=== PATIENT | female | born 1965 | race Caucasian/White ===

== ENCOUNTER 2024-04-14 16:38 | Outpatient (RCR) | payer OTHER, SELFPAY | END 2024-05-13 14:34 | disposition home or self-care (01) | LOC: PT 16:38 | DX: M54.12 Radiculopathy, cervical region (principal) | CPT/HCPCS: 97012; 97110; 97140; 97162 ==

== ENCOUNTER 2024-05-14 08:24 | Outpatient (RCR) | payer OTHER, SELFPAY | END 2024-09-13 07:01 | disposition home or self-care (01) | LOC: PT 08:24 | DX: M54.12 Radiculopathy, cervical region (principal) | CPT/HCPCS: 20561; 97012; 97110; 97140 ==

== ENCOUNTER 2024-09-27 09:43 | Outpatient (OUT) | payer OTHER, SELFPAY ==
--- OUTSIDE RECORDS SUMMARY | 2024-09-27 09:47 | XMS_ITS | CCD ---
Author Organization [facility] ion [facility] Care Team Providers Care Lead Caregiver Name Role Phone Unavailable Primary Care Provider Unavailtrey RIDLEY, DR DIDIER Nazario Admitting Unavailable RIDLEY, DR DIDIER Nazario Attending Unavailable RIDLEY, DR DIDIER aNzario Consulting Unavailable RIDLEY, DR DIDIER Nazario Primary Care Unavailable RIDLEY, DR DIDIER Nazario Admitting Unavailable RIDLEY, DR DIDIER Nazario Attending Unavailable RIDLEY, DR DIDIER Nazario Consulting Unavailable RIDLEY, DR DIDIER Nazario Primary Care Unavailable MISC, DR RYAN Attending Unavailable MISC, DR RYAN Admitting Unavailable WEST, DR KARL Peck Consulting Unavailable RIDLEY, DR DIDIER Nazario Primary Care Unavailable MISC, DR RYAN Consulting Unavailable MISC, DR RYAN Attending Unavailable MISC, DR RYAN Admitting Unavailable KHAI, DR DIDIER Nazario Primary Care Unavailable AR VENTURA Admitting Unavailable DEQUAN LECHUGA Consulting Unavailable KHAI, DR DIDIER Nazario Primary Care Unavailable AR VENTURA Attending Unavailable AR VENTURA Consulting Unavailable PELEamon, REJI Consulting Unavailable KHAI, DR DIDIER Nazario Admitting Unavailable KHAI, DR DIDIER Nazario Attending Unavailable RIDLEY, DR DIDIER Nazario Consulting Unavailable RIDLEY, DR DIDIER Nazario Primary Care Unavailable Shani Nieto Unavailable Nasrin Dang Unavailable Tara Ferrari Primary Care Physician GUSTAVO CADET Attending Unavailable Tara Tanner Primary Care Provider Kelsey Barnes APRN Attending Provider Tara Ferrari Attending Unavailable MARY MERCADO Attending Unavailable Tara Ferrari Attending Unavailable Tara Ferrari Admitting Unavailable Tara Ferrari Attending Unavailable Tara Ferrari Attending Unavailable Kelsey Barnes Attending Unavailable Kelsey Barnes Admitting Unavailable Tara Ferrari Primary Care Unavailable Ronda Cloud Consulting Unavailable Khloe Zhang Attending Unavailable Tara Ferrari Primary Care Unavailable Cyrus Ellison Admitting Unavailable Soco Jean Consulting Unavailable PalChristopher Consulting Unavailable Vita Azvj Consulting Unavailable Vega PRESS SET UP-C, Tara Ventura Primary Care Provider Rosalva Lockhart DO Emergency Provider [phone] Cyrus Ellison MD Admit Provider Terra GILBERT, Cyrus Attending Provider [phone] Allergies Allergy Classification Reported Allergen(s) Allergy Type Date of Onset Reaction(s) Facility (1 source) No Known Medication Allergies; Translations: [No Known Medication Allergies] Propensity to adverse reactions (disorder) [facility] Repository Medications Current Medications Medication Drug Class(es) Dates Sig (Normalized) Sig (Original) amoxicillin 875 mg / clavulanate 125 mg oral tablet (1 source) Penicillin-class Antibacterial Start: 11-30-2022 take 1 tablet by mouth every twelve hours Amoxicillin-Pot Clavulanate 875-125 MG 1 tablet Orally every 12 hrs for 10 day(s) Nov, Active bisoprolol fumarate 5 mg / hydroCHLOROthiazide 6.25 mg oral tablet (12 sources) Thiazide Diuretic, beta-Adrenergic Kusum Start: 03-20-2024 take 1 tablet by mouth once daily Bisoprolol-Abiquiu chlorothiazide 5-6.25 mg tablet Active 1 TAB PO Daily March 20, 2024 1:00am Start: 03-20-2024 take 1 tablet by cesar th once daily Bisoprolol-Hydrochlorothiazide 5-6.25 mg tablet Active TAB PO Daily March 20, 2024 1:00am Start: 03-20-2024 take 1 tablet by cesar th once daily Bisoprolol-Hydrochlorothiazide 5-6.25 mg tablet Active TAB PO Daily March 20, 2024 12:00am Start: 12-13-2022 take 1 tablet by cesar th once daily bisoprolol-hydrochlorothiazide 5 mg-6.25 mg Tab 1 tab(s), Oral, Daily, Refill(s) 0, High blood pressure Start Date: 12/13/22 Status: Ordered Start: 05-24-2021 take 1 tablet by cesar th once daily in the morning bisoprolol-hydroCHLOROthiazide (ZIAC) 5- 6.25 mg per tablet TAKE 1 TABLET BY MOUTH EVERY DAY IN THE MORNING 0 05/24/2021 Active Comment on above: TAKE 1 TABLET BY CESAR TH EVERY DAY IN THE MORNING fluticasone propionate 0.05 mg/actuat metered dose nasal spray (1 source) Corticosteroid Start: 09-22-19 take 1 spray(s) nasal route once daily Fluticasone Propionate 50 mcg/actuation spray,suspension Active 1 SPRAY INTRANASAL Daily 16 September 21, 2024 12:00am administer into each nostril meloxicam 7.5 mg oral tablet (3 sources) Nonsteroidal Anti-inflammatory Drug Start: 09-10-19 End: 12-09-19 take 1-2 tablets by mouth once daily meloxicam (MOBIC) 7.5 mg tablet Indications: Spinal stenosis in cervical region , Radiculopathy, cervical region , Cervicalgia Take 1-2 tablets by mouth once daily. 60 tablet 2 09/09/2021 12/08/2021 Active Start: 07-22-2021 End: 08-21-2021 take 1-2 tablets by mouth once daily meloxicam (MOBIC) 7.5 mg tablet Indications: Spinal stenosis in cervical region , Radiculopathy, cervical region , Cervicalgia Take 1-2 tablets by mouth once daily. 60 tablet 0 07/22/2021 08/21/2021 Active Comment on above: Take 1-2 tablets by mouth once daily. Completed/Discontinued Medications Medication Drug Class(es) Dates Sig (Normalized) Sig (Original) [id number] 200 actuat albuterol 0.09 mg/actuat metered dose inhaler (4 sources) beta2-Adrenergic Agonist Start: take 2 puff(s) by mouth every four hours albuterol HFA (PROVENTIL HFA, VENTOLIN HFA) 90 mcg/actuation inhaler INHALE 2 PUFFS BY MOUTH EVERY 4 HOURS 0 05/27/2021 Active Comment on above: INHALE 2 PUFFS BY MO UT EVERY 4 HOURS cyclobenzaprine hydrochloride 10 mg oral tablet (2 sources) Muscle Relaxant Start: 0 take 1 tablet by mouth every eight hours Cyclobenzaprine HCl 10 MG 1 tablet as needed Orally Three times a day for 7 days Dec, Not-Taking dextromethorphan hydrobromide 15 mg / guaiFENesin 400 mg / pseudoephedrine hydrochloride 60 mg oral tablet (2 sources) alpha-Adrenergic Agonist, Uncompetitive Z-nvrjrz-G-asparta te Receptor Antagonist, Sigma-1 Agonist Start: 0 Capmist DM 60-15-400 MG 1/2 to 1 tablet Orally every 6-8 hours as needed for 8 days Jul, Not-Taking gabapentin 100 mg oral capsule (4 sources) Anti-epileptic Agent Start: 2 take 1 capsule by mouth three times daily as needed for pain gabapentin (NEURONTIN) 100 mg capsule TAKE 1 CAPSULE BY MOUTH 3 TIMES A DAY NEEDED FOR PAIN 0 07/15/2021 Active Comment on above: TAKE 1 CAPSULE BY [facility] 3 TIMES A DAY NEEDED FOR PAIN Ketorolac (2 sources) Nonsteroidal Anti-inflammatory Drug, Cyclooxygenase Inhibitor Start: 0 Toradol per 15 mg Dec, 15 mg methylPREDNISolone 4 mg oral tablet (4 sources) Corticosteroid Start: 0 Medrol 4 MG as directed Orally for 6 days Dec, Not-Taking predniSONE 20 mg oral tablet (4 sources) Start: 5 End: 5 take 1 tablet by mouth once daily Prednisone 20 mg tablet Discontinued 20 MG PO Daily 3 3 September 21, 2024 12:00am September 21, 2024 4:21pm Start: 10-08-2022 [facility] prednisone 20 MG 1 tablet Orally BID for 5 Nov, Active Triamcinolone (2 sources) Corticosteroid Start: 01-02-2020 KENALOG - 10 m g Dec, 10 mg Problems Active Problems Problem Classification Problem Date Documented Date Episodic/Chronic Abdominal pain (2 sources) Pain in female pelvis; Translations: [Pelvic pain in female] Episodic Alcohol-related disorders (1 source) Alcohol abuse, uncomplicated; Translations: [Alcohol abuse, uncomplicated] Onset: 09-21-2024 Chronic Cataract (2 sources) Cataract; Translations: [Unspecified cataract] Onset: 04-11-2023 Chronic Conditions associated with dizziness or vertigo (3 sources) Dizziness 01-04-2023 Episodic Essential hypertension (4 sources) Hypertensive disorder; Translations: [Essential (primary) hypertension] Onset: 09-21-2024 12-13-2022 Chronic Fluid and electrolyte disorders (8 sources) Hypo-osmolality and hyponatremia; Translations: [Dehydration] Onset: 02-15-2021 Episodic Immunizations and screening for infectious disease (3 sources) Anti-nuclear factor positive 01-04-2023 Episodic Mood disorders (3 sources) Depressive disorder 12-13-2022 Chronic Other connective tissue disease (3 sources) Cramp in lower limb 01-04-2023 Episodic Other connective tissue disease (3 sources) Pain in left arm; Translations: [Pain in left arm] 03-20-2024 Episodic Other connective tissue disease (1 source) Pain in left arm; Translations: [Pain in limb] 03-20-2024 Episodic Other nervous system disorders (4 sources) Hereditary and idiopathic neuropathy, unspecified; Translations: [HEREDITARY IDIOPATH NEUROPATHY UNS] Onset: 01-22-2021 Chronic Other nervous system disorders (3 sources) Neuropathy 12-13-2022 Chronic Comment on above: 01/2021 Other nervous system disorders (3 sources) Piriformis syndrome 12-13-2022 Chronic Other upper respiratory disease (3 sources) Allergic rhinitis 12-13-2022 Chronic Other upper respiratory disease (3 sources) Seasonal allergy 12-13-2022 Chronic Other upper respiratory infections (9 sources) Acute pharyngitis, unspecified; Translations: [Acute sinusitis, unspecified] Onset: 02-13-2021 Episodic Otitis media and related conditions (2 sources) Acute transudative otitis media; Translations: [Other acute nonsuppurative otitis media, bilateral] 09-21-2024 Episodic Spondylosis; intervertebral disc disorders; other back problems (3 sources) Cervical spondylosis 12-13-2022 Chronic Comment on above: with radiculopathy Unclassified (3 sources) CONTACT W/AND (SUSP) EXPOS COVID-19; Translations: [CONTACT W/AND (SUSP) EXPOS COVID-19] Onset: 02-15-2021 Unclassified (3 sources) Body mass index 20-24 - normal 12-13-2022 Viral infection (4 sources) COVID-19; Translations: [Disease caused by 2019-nCoV] Onset: 05-26-2021 12-13-2022 Comment on above: 2019 and 2021 Past or Other Problems Problem Classification Problem Date Documented Da te Episodic/Chronic Spondylosis; intervertebral disc disorders; other back problems (16 sources) Spinal stenosis in cervical region; Translations: [Spinal stenosis, cervical region] Onset: 08-04-2021 Episodic Unclassified (1 source) CONTACT W/AND (SUSP) EXPOS COVID-19; Translations: [CONTACT W/AND (SUSP) EXPOS COVID-19] Onset: 05-24-2021 Unclassified (1 source) Contact with and (suspected) exposure to covid-19 Z20.822 Results Test Name Value Interpretation Reference Range Facility Ambulatory Visit Summaryon 0 09-25-2024 Ambulatory Visit Summary Ambulatory Visit Summary BILLY ARGUETA :1965 Visit Date:09/25/2024 Ambulatory Visit Instructions Your Diagnosis Hospital discharge follow-up HTN (hypertension) Hyponatremia Fluid level behind tympanic membrane of both ears Non-smoker BMI 21.0-21.9, adult Your Care Team Attending Physician - Tara Abreu Primary Care Physician - Tara Abreu This Is Your Medications List amlodipine (amLODIPine 2.5 mg Tab) bisoprolol (bisoprolol 5 mg Tab) fluticasone nasal (fluticasone Nasal 0.05 mg/inh [place]) Procedures Performed CEIOL - cataract extraction and implantation of intraocular lens (05/10/2023), IOL - intraocular lens implant (04/12/2023), Back fusion, section, Colonoscopy, Ovarian cystectomy, Surgery. Discharge Vitals Heart Rate (Peripheral) 68 Respiratory Rate 18 Blood Pressure 152/78 Height 172.0 cm Height 68 in Weight 62.55 kg Weight 137.899 lb BMI 21.14 What to do next Scheduled Follow-Up Appointments Sunday. 2024 11:00 AM EDT With: Tara Abreu Where: [place] [id number] Medications What How Much When Instructions Unchanged amlodipine (amLODIPine 2.5 mg Tab) 1 Tablets By Mouth Every day Unchanged bisoprolol (bisoprolol 5 mg Tab) 1 Tablets By Mouth Every day Bisoprolol- HCTZ D/ C Unchanged fluticasone nasal (fluticasone Nasal 0.05 mg/ inh [place]) 1 Sprays Nasal Inhalation Every day Allergies No Known Medication Allergies Problems Ongoing - Any problem that you are currently receiving treatment for. Allergic rhinitis ROBB positive BMI 22.0-22.9, adult BMI 23.0-23.9, adult Cervical spondylosis Congestion of nasal sinus COVID Depression Dizziness Fluid level behind tympanic membrane of both ears Foraminal stenosis of cervical region Hospital discharge follow-up HTN (hypertension) Hyponatremia Leg cramps Neuropathy Piriformis syndrome Right otitis media Seasonal allergies Patient Survey You may receive a survey via text or e-mail asking about your office visit. Please share your experience with us by completing your survey. We appreciate your feedback and thank you for choosing us for your care. Normal [facility] Family Medicine Office/Clini c Noteon 09-25-2024 Family Medicine Office/Clinic Note Family Medicine Office/Clinic Note HPI Staff Billy is a 59 year old female presenting for TCM TCM: Hospital: [facility] Admission date: 09/21/24 Discharge date: 09/24/24 Symptoms the patient presented with: light headed, dizziness Testing: CT of Brain ,chest x-ray Medications: D/c Bisoprolol-HCTZ and started Bisoprolol fumarate 5mg and amlodipine 5mg Discharge Dx: HTN. hyponatremia Pt to follow out pt with Nephrology Current concerns: Pt states last night at 2am started having headache and chest just alfonso felt tight almost like anxiety attack b/p 179/103 she did call the hospital and they told her to go ahead and take the amlodipine pt took that are rechecked her b/p at 3 am it is 163/93 and then took the Bisoprolol at 4:30am never re checked b/p after that. Pt also states she isn't sleeping well she has had maybe 6 hours of sleep since being admitted into the hospital. Continues to feel dizzy/light headed pt does feel sinus pressure. Pt was prescribed a steroid at the urgent care and her b/p was elevated then, pt states she didn't take the steroid and got home and had her take her to the hospital. History of Present Illness pt presents today for TCM follow up. Review of Systems PHQ Score Initial Depression Screen Score: 0 SCORE Physical Exam Vitals & Measurements HR: 68(Peripheral) RR: 18 BP: 152/78 SpO2: 98% HT: 172.0 cm HT: 68 in WT: 62.55 kg WT: 137.899 lb BMI: 21.14 General: alert, no acute distress ENMT: oral mucosa moist, no pharyngeal erythema or exudate, MITCH TM full of clear fluid Cardiovascular: regular rate and rhythm, normal peripheral perfusion Respiratory: Lungs CTA, respirations non labored Extremities: no deformity, no trauma Neurological: oriented x 4, LOC appropriate for age, CN II-XII intact, motor strength equal & normal bilaterally, speech normal Assessment/Plan 1. Hospital discharge follow-up (Z09: Encounter for follow-up examination after completed treatment for conditions other than malignant neoplasm) pt was admitted to [facility] for HTN and hyponatremia. the hospital d/c'd HCTZ. and she was started on Norvasc and bisoprolol. early this morning BP spiked back up. so she took meds early. pt was instructed by me to take the bisoprolol 5mg BID. she will check her BP before the 2nd dose if it is less than 140/90 she will not take it. She was given Kenalog in office today and I fear this will make her BP run a little higher. But she needs some relief from the fluid behind her ear drums. discharge instructions were reviewed and pt verbalized understanding. she will keep a BP log and return in 1 week. discussed anxiety but she feels if she could just start feeling better the anxiety will be fine. we will discuss that again next week. RTC 10/01 Ordered: TCM [facility] 7 day disch [id number] 2. HTN (hypertension) (I10: Essential (primary) hypertension) Pt was discharged yesterday and early this morning around 3 she had a bad headache checked her BP it was very high. she called the hospital and they told her to take her BP meds early. Pt will take 5mg bisoprolol BID until I see her next week. she will keep a BP log. Ordered: TCM [facility] 7 day disch [id number] 3. Hyponatremia (E87.1: Hypo-osmolality and hyponatremia) when admitted to hospital was found to be hyponatremic. pt will go to [facility] to have BMP drawn. she has an order from [facility]. Has appointment with nephrology in October Ordered: [facility] 7 day disch [id number] 4. Fluid level behind tympanic membrane of both ears (H65.93: Unspecified nonsuppurative otitis media, bilateral) MITCH TM full of fluid. pt was given Medrol dose pack but didn't take it because she ended up at hospital with high BP Ordered: [facility] 7 day disch [id number] 5. Right otitis media (H66.91: Otitis media, unspecified, right ear) right OM noted on exam. will send in Augmentin 6. Non-smoker (Z78.9: Other specified health status) continue not smoking Ordered: [facility] 7 day disch [id number] 7. BMI 21.0-21.9, adult (Z68.21: Body mass index [BMI] 21.0-21.9, adult) BMI education Ordered: [facility] 7 day disch [id number] Orders: amoxicillin-clavulan ate, 1 tab(s), Oral, q12hr for 7 day(s), 14 tab(s), Refill(s) 0, [facility]/pharmacy #[id number], 172, cm, 09/25/24 11:28:00 EDT, Height/Length Dosing, 62.5, kg, 09/25/24 11:28:00 EDT, Weight Dosing bisoprolol-hydrochlo rothiazide, See Instructions, 90 tab(s), Refill(s) 0, TAKE 1 TABLET BY MOUTH EVERY DAY, [facility] STORE [id number], 172, cm, 06/06/24 11:51:00 EST, Height/Length Dosing, 65.1, kg, 06/06/24 11:51:00 EST, Weight Dosing methylPREDNISolone, = 1 packet(s), Oral, Once, as directed on package labeling, # 21 tab(s), Refills(s) 0, Pharmacy: [facility]/pharmacy #[id number], 172, cm, 06/06/24 11:51:00 EST, Height/Length Dosing, 65.1, kg, 06/06/24 11:51:00 EST, Weight Dosing Follow-up No qualifying data available Problem List/Past Medical History Ongoing Allergic rhinitis ROBB positive BMI 22.0-22 (more content not included)... Normal [facility] Comment on above: Result Comment: Elec tronically Signed By: Tara Abreu\.tressa\Date and Time Signed: 09/25/24 12:45 EDT Basic Metabolic Panelon 09-11 Anion gap [Moles/Vol] 9.8 mmol/L Normal 6.0-15.0 [facility] Comment on above: Performed By: #### U RDS #### [facility] [address] Calcium [Mass/Vol] 8.8 mg/dL Normal 8.6-10.3 [facility] Comment on above: Performed By: #### U RDS #### [address] Chloride [Moles/Vol] 99 mmol/L Normal 98-107 [facility] Comment on above: Performed By: #### U RDS #### [address] CO2 [Moles/Vol] 25.2 mmol/L Normal 21.0-31.0 [facility] Comment on above: Performed By: #### U RDS #### [address] Creatinine [Mass/Vol] 0.65 mg/dL Normal 0.60-1.20 [facility] Comment on above: Performed By: #### U RDS #### [place] [address] [place] Creatinine Clr Calc Pharmacy 94.01 Normal [facility] Comment on above: Result Comment: PERF ORMED BY: [place] [address] PATHOLOGIST TAKER OFF HEMP FIBER EMIR DELGADO M.D. Performed By: #### U RDS #### [place] [address] [place] GFR/1.73 sq M.predicted MDRD (S/P/Bld) [Vol rate/Area] mL/min/{1.73_m2} Normal [facility] Comment on above: Performed By: #### U RDS #### [address] Glucose [Mass/Vol] 104 mg/dL High 70-100 [facility] Comment on above: Result Comment: [facility] Glucose Reference Range is dependent on time and content of last meal. Glucose of more than 200 mg/dL in a nonstressed, ambulatory subject supports the diagnosis of Diabetes Mellitus. ADA recommended reference range Performed By: #### U RDS #### [address] Potassium [Moles/Vol] 5.0 mmol/L Normal 3.5-5.1 [facility] Comment on above: Performed By: #### U RDS #### [address] Sodium [Moles/Vol] 129 mmol/L Low 136-145 [facility] Comment on above: Performed By: #### U RDS #### [address] Urea nitrogen [Mass/Vol] 11 mg/dL Normal 7-25 [facility] Comment on above: Performed By: #### U RDS #### [address] Complete Blood Count Auto Di ffon 09-24-2024 Basophils (Bld) [#/Vol] 0.0 10*3/uL Normal 0.0-0.2 [facility] Comment on above: Result Comment: PERF ORMED BY: [place] [address] PATHOLOGIST TAKER OFF HEMP FIBER EMIR DELGADO M.D. Performed By: #### R JUAN MG #### [place] [address] [place] Basophils/100 WBC (Bld) 1.2 % Normal . T [facility] Comment on above: Performed By: #### R JUAN MG #### [place] [address] [place] Eosinophils (Bld) [#/Vol] 0.2 10*3/uL Normal 0.0-0.45 [facility] Comment on above: Performed By: #### R ENNORMA, MG #### [address] Eosinophils/100 WBC (Bld) 4.4 % Normal . [facility] Comment on above: Performed By: #### R ENAL, MG #### [address] Erythrocyte distribution width (RBC) [Ratio] 12.8 % Normal 11.9-15.3 [facility] Comment on above: Performed By: #### R ENNORMA, MG #### [address] Hematocrit (Bld) [Volume fraction] 34.4 % Normal 34.0-46.4 [facility] Comment on above: Performed By: #### R ENAL, MG #### [address] Hemoglobin (Bld) [Mass/Vol] 12.1 g/dL Normal 11.8-15.4 [facility] Comment on above: Performed By: #### R ENNORMA, MG #### [address] Lymphocytes (Bld) [#/Vol] 1.4 10*3/uL Normal 1.00-4.8 [facility] Comment on above: Performed By: #### R ENAL, MG #### [address] Lymphocytes/100 WBC (Bld) 34.2 % Normal . [facility] Comment on above: Performed By: #### R ENAL, MG #### [address] MCH (RBC) [Entitic mass] 34.3 pg Normal 24.7-34.3 [facility] Comment on above: Performed By: #### R ENAL, MG #### [address] MCV (RBC) [Entitic vol] 97.8 fL Normal 80-100 [facility] Comment on above: Performed By: #### R JUAN MG #### [address] Mean Corpuscular HGB Conc 35.1 g/dL High 32.0-35.0 [facility] Comment on above: Performed By: #### Jules MARTINEZ, MG #### [address] Monocytes (Bld) [#/Vol] 0.6 10*3/uL Normal 0.0-0.8 [facility] Comment on above: Performed By: #### Jules MARTINEZ MG #### [address] Monocytes/100 WBC (Bld) 13.7 % Normal . [facility] Comment on above: Performed By: #### Jules MARTINEZ MG #### [address] Neutrophils (Bld) [#/Vol] 1.9 10*3/uL Normal 1.8-7.7 [facility] Comment on above: Performed By: #### Jules MARTINEZ MG #### [address] Neutrophils/100 WBC (Bld) 46.5 % Normal . [facility] Comment on above: Performed By: #### Jules MARTINEZ, MG #### [address] NRBC% 0.1 /100{WBC} Normal 0-0.5 [facility] Comment on above: Performed By: #### R JUAN, MG #### [address] Platelet mean volume (Bld) [Entitic vol] 7.4 fL Normal 6.3-10.7 [facility] Comment on above: Performed By: #### Jules MARTINEZ MG #### [address] Platelets (Bld) [#/Vol] 263 10*3/uL Normal 150-450 [facility] Comment on above: Performed By: #### R JUAN, MG #### [address] RBC (Bld) [#/Vol] 3.51 10*6/uL Low 3.60-5.00 [facility] Comment on above: Performed By: #### R ENAL, MG #### [address] WBC (Bld) [#/Vol] 4.1 10*3/uL Normal 3.8-11.6 [facility] Comment on above: Performed By: #### R ENNORMA, MG #### [address] Sodiumon 09-24-2024 Sodium [Moles/Vol] 129 mmol/L Low 136-145 [facility] Comment on above: Result Comment: PERF ORMED BY: [place] [address] PATHOLOGIST TAKER OFF HEMP FIBER EMIR DELGADO M.D. Performed By: #### U RDS #### [address] Complete Blood Count Auto Di ffon 09-23-2024 Basophils (Bld) [#/Vol] 0.0 10*3/uL Normal 0.0-0.2 [facility] Comment on above: Result Comment: PERF ORMED BY: [place] [address] PATHOLOGIST TAKER OFF HEMP FIBER EMIR DELGADO M.D. Performed By: #### R ENNORMA, MG #### [address] Basophils/100 WBC (Bld) 1.0 % Normal . T [facility] Comment on above: Performed By: #### R JUAN, MG #### [address] Eosinophils (Bld) [#/Vol] 0.2 10*3/uL Normal 0.0-0.45 [facility] Comment on above: Performed By: #### R JUAN, MG #### [address] Eosinophils/100 WBC (Bld) 3.8 % Normal . [facility] Comment on above: Performed By: #### R JUAN, MG #### [address] Erythrocyte distribution width (RBC) [Ratio] 12.2 % Normal 11.9-15.3 [facility] Comment on above: Performed By: #### R JUAN, MG #### [address] Hematocrit (Bld) [Volume fraction] 34.5 % Normal 34.0-46.4 [facility] Comment on above: Performed By: #### R JUAN, MG #### [address] Hemoglobin (Bld) [Mass/Vol] 11.9 g/dL Normal 11.8-15.4 [facility] Comment on above: Performed By: #### R JUAN, MG #### [address] Lymphocytes (Bld) [#/Vol] 1.5 10*3/uL Normal 1.00-4.8 [facility] Comment on above: Performed By: #### R ENNORMA, MG #### [address] Lymphocytes/100 WBC (Bld) 36.5 % Normal . [facility] Comment on above: Performed By: #### R ENNORMA, MG #### [address] MCH (RBC) [Entitic mass] 34.0 pg Normal 24.7-34.3 [facility] Comment on above: Performed By: #### R JUAN, MG #### [address] MCV (RBC) [Entitic vol] 98.4 fL Normal 80-100 [facility] Comment on above: Performed By: #### R JUAN MG #### [address] Mean Corpuscular HGB Conc 34.5 g/dL Normal 32.0-35.0 [facility] Comment on above: Performed By: #### Jules MARTINEZ MG #### [address] Monocytes (Bld) [#/Vol] 0.6 10*3/uL Normal 0.0-0.8 [facility] Comment on above: Performed By: #### Jules MARTINEZ MG #### [address] Monocytes/100 WBC (Bld) 15.0 % Normal . [facility] Comment on above: Performed By: #### Jules MARTINEZ MG #### [address] Neutrophils (Bld) [#/Vol] 1.8 10*3/uL Normal 1.8-7.7 [facility] Comment on above: Performed By: #### Jules MARTINEZ MG #### [address] Neutrophils/100 WBC (Bld) 43.7 % Normal . [facility] Comment on above: Performed By: #### Jules MARTINEZ, MG #### [address] NRBC% 0.1 /100{WBC} Normal 0-0.5 [facility] Comment on above: Performed By: #### R JUAN MG #### [address] Platelet mean volume (Bld) [Entitic vol] 7.4 fL Normal 6.3-10.7 [facility] Comment on above: Performed By: #### Jules MARTINEZ MG #### [address] Platelets (Bld) [#/Vol] 257 10*3/uL Normal 150-450 [facility] Comment on above: Performed By: #### R ENNORMA, MG #### [address] RBC (Bld) [#/Vol] 3.51 10*6/uL Low 3.60-5.00 [facility] Comment on above: Performed By: #### R ENAL, MG #### [address] WBC (Bld) [#/Vol] 4.1 10*3/uL Normal 3.8-11.6 [facility] Comment on above: Performed By: #### R JUAN, MG #### [address] Cortisolon 09-23-2024 Cortisol 5.9 ug/dL Normal [facility] Comment on above: Order Comment: draw all labs and 1200 per ellis mac Result Comment: Refe rence range: AM 6 - 24 ug/dl PM <10 ug/dl [facility] robotics testing technician and method: THOM UNICEL DXI, POLYCLONAL ANTIBODY CORTISOL ASSAY. PERFORMED BY: [place] [address] PATHOLOGIST TAKER OFF HEMP FIBER EMIR DELGADO M.D. Performed By: #### U RDS #### [address] Magnesiumon 09-23-2024 Magnesium [Mass/Vol] 1.9 mg/dL Normal 1.9-2.7 [facility] Comment on above: Result Comment: PERF ORMED BY: [place] [address] PATHOLOGIST TAKER OFF HEMP FIBER EMIR DELGADO M.D. Performed By: #### R ENNORMA, MG #### [address] Renal Function Panelon 09-23 Albumin [Mass/Vol] 4.1 g/dL Normal 3.5-5.7 [facility] Comment on above: Performed By: #### R ENAL, MG #### [facility] [address] [place] [address] [place] Anion gap [Moles/Vol] 10.9 mmol/L Normal 6.0-15.0 [facility] e [facility] Comment on above: Performed By: #### R ENAL, MG #### [facility] [address] [place] [address] [place] Calcium [Mass/Vol] 8.9 mg/dL Normal 8.6-10.3 [facility] Comment on above: Performed By: #### R ENAL, MG #### [facility] [address] [place] [address] [place] Chloride [Moles/Vol] 91 mmol/L Low 98-107 [facility] Comment on above: Performed By: #### R ENAL, MG #### [facility] [address] [place] [address] [place] CO2 [Moles/Vol] 27.0 mmol/L Normal 21.0-31.0 [facility] Comment on above: Performed By: #### R ENAL, MG #### [facility] [address] [place] [address] [place] Creatinine [Mass/Vol] 0.55 mg/dL Low 0.60-1.20 [facility] Comment on above: Performed By: #### R ENAL, MG #### [facility] [address] [place] [address] [place] Creatinine Clr Calc Pharmacy 111.10 Normal [facility] Comment on above: Performed By: #### R ENAL, MG #### [facility] [address] [place] [id number] [place] GFR/1.73 sq M.predicted MDRD (S/P/Bld) [Vol rate/Area] mL/min/{1.73_m2} Normal [facility] Comment on above: Performed By: #### R ENAL, MG #### [facility] [address] [place] [id number] [place] Glucose [Mass/Vol] 89 mg/dL Normal 70-100 [facility] Comment on above: Result Comment: [place] Glucose Reference Range is dependent on time and content of last meal. Glucose of more than 200 mg/dL in a nonstressed, ambulatory subject supports the diagnosis of Diabetes Mellitus. ADA recommended reference range Performed By: #### R ENAL, MG #### [facility] [address] Phosphate [Mass/Vol] 3.6 mg/dL Normal 2.5-4.5 [facility] Comment on above: Performed By: #### R ENAL, MG #### [address] Potassium [Moles/Vol] 3.9 mmol/L Normal 3.5-5.1 [facility] Comment on above: Performed By: #### R ENAL, MG #### [address] Sodium [Moles/Vol] 125 mmol/L Low 136-145 [facility] Comment on above: Performed By: #### R ENAL, MG #### [place] [address] [place] Urea nitrogen [Mass/Vol] 8 mg/dL Normal 7-25 [facility] Comment on above: Performed By: #### R ENAL, MG #### [place] [address] [place] Sodiumon 09-23-2024 Sodium [Moles/Vol] 125 mmol/L Low 136-145 [facility] Comment on above: Result Comment: PERF ORMED BY: [place] [address] PATHOLOGIST TAKER OFF HEMP FIBER EMIR DELGADO M.D. Performed By: #### N A #### [place] [address] [place] Sodium [Moles/Vol] 123 mmol/L Off scale low 136-145 [facility] Comment on above: Order Comment: draw all labs and 1200 per ellis mac Result Comment: Crit ical Result Called to and read back by: NOT FIRST CRITICAL at: 09/23/2024 13:48:42 by:[id number] PERFORMED BY: [place] [address] PATHOLOGIST TAKER OFF HEMP FIBER EMIR DELGADO M.D. Performed By: #### R MG JUAN #### [address] Basic Metabolic Panelon 09-11 Anion gap [Moles/Vol] 12.1 mmol/L Normal 6.0-15.0 [facility] e [facility] Comment on above: Performed By: #### N A #### [address] Calcium [Mass/Vol] 9.0 mg/dL Normal 8.6-10.3 [facility] Comment on above: Performed By: #### N A #### [address] Chloride [Moles/Vol] 95 mmol/L Low 98-107 [facility] Comment on above: Performed By: #### N A #### [address] CO2 [Moles/Vol] 25.6 mmol/L Normal 21.0-31.0 [facility] Comment on above: Performed By: #### N A #### [address] Creatinine [Mass/Vol] 0.60 mg/dL Normal 0.60-1.20 [facility] Comment on above: Performed By: #### N A #### [place] [address] [place] Creatinine Clr Calc Pharmacy 101.20 Normal [facility] Comment on above: Performed By: #### N A #### [place] [address] [place] GFR/1.73 sq M.predicted MDRD (S/P/Bld) [Vol rate/Area] mL/min/{1.73_m2} Normal [facility] Comment on above: Performed By: #### N A #### [address] Glucose [Mass/Vol] 105 mg/dL High 70-100 [facility] Comment on above: Result Comment: [facility] Glucose Reference Range is dependent on time and content of last meal. Glucose of more than 200 mg/dL in a nonstressed, ambulatory subject supports the diagnosis of Diabetes Mellitus. ADA recommended reference range Performed By: #### N A #### [address] Potassium [Moles/Vol] 3.7 mmol/L Normal 3.5-5.1 [facility] Comment on above: Performed By: #### N A #### [address] Sodium [Moles/Vol] 129 mmol/L Low 136-145 [facility] Comment on above: Performed By: #### N A #### [address] Urea nitrogen [Mass/Vol] 6 mg/dL Low 7-25 [facility] Comment on above: Performed By: #### N A #### [address] Anion gap [Moles/Vol] 12.3 mmol/L Normal 6.0-15.0 [facility] Comment on above: Performed By: #### R ENAL, MG #### [place] [address] [place] Calcium [Mass/Vol] 9.3 mg/dL Normal 8.6-10.3 [facility] Comment on above: Performed By: #### R ENAL, MG #### [place] [address] [place] Chloride [Moles/Vol] 95 mmol/L Low 98-107 [facility] Comment on above: Performed By: #### R ENAL, MG #### [place] [address] [place] CO2 [Moles/Vol] 24.5 mmol/L Normal 21.0-31.0 [facility] Comment on above: Performed By: #### R ENAL, MG #### [address] Creatinine [Mass/Vol] 0.53 mg/dL Low 0.60-1.20 [facility] Comment on above: Performed By: #### R ENAL, MG #### [place] [address] [place] Creatinine Clr Calc Pharmacy 115.29 Normal [facility] Comment on above: Result Comment: PERF ORMED BY: [place] [address] PATHOLOGIST TAKER OFF HEMP FIBER EMIR DELGADO M.D. Performed By: #### R ENAL, MG #### [place] [address] [place] GFR/1.73 sq M.predicted MDRD (S/P/Bld) [Vol rate/Area] mL/min/{1.73_m2} Normal [facility] Comment on above: Performed By: #### R ENAL, MG #### [address] Glucose [Mass/Vol] 95 mg/dL Normal 70-100 [facility] Comment on above: Result Comment: [place] Glucose Reference Range is dependent on time and content of last meal. Glucose of more than 200 mg/dL in a nonstressed, ambulatory subject supports the diagnosis of Diabetes Mellitus. ADA recommended reference range Performed By: #### R ENAL, MG #### [facility] [address] Potassium [Moles/Vol] 3.8 mmol/L Normal 3.5-5.1 [facility] Comment on above: Performed By: #### R ENAL, MG #### [address] Sodium [Moles/Vol] 128 mmol/L Significant change down 136-145 [facility] Comment on above: Performed By: #### R ENAL, MG #### [address] [address] [place] Urea nitrogen [Mass/Vol] 6 mg/dL Low 7-25 [facility] Comment on above: Performed By: #### R MG JUAN #### [address] Complete Blood Count Auto Di ffon 09-22-2024 Basophils (Bld) [#/Vol] 0.0 10*3/uL Normal 0.0-0.2 [facility] Comment on above: Result Comment: PERF ORMED BY: [place] [address] PATHOLOGIST TAKER OFF HEMP FIBER EMIR DELGADO M.D. Performed By: #### N A #### [address] Basophils/100 WBC (Bld) 0.8 % Normal . T [facility] Comment on above: Performed By: #### N A #### [address] Eosinophils (Bld) [#/Vol] 0.1 10*3/uL Normal 0.0-0.45 [facility] Comment on above: Performed By: #### N A #### [address] Eosinophils/100 WBC (Bld) 2.6 % Normal . [facility] Comment on above: Performed By: #### N A #### [address] Erythrocyte distribution width (RBC) [Ratio] 12.5 % Normal 11.9-15.3 [facility] Comment on above: Performed By: #### N A #### [address] Hematocrit (Bld) [Volume fraction] 37.0 % Normal 34.0-46.4 [facility] Comment on above: Performed By: #### N A #### [address] Hemoglobin (Bld) [Mass/Vol] 12.7 g/dL Normal 11.8-15.4 [facility] Comment on above: Performed By: #### N A #### [address] Lymphocytes (Bld) [#/Vol] 1.3 10*3/uL Normal 1.00-4.8 [facility] Comment on above: Performed By: #### N A #### [address] Lymphocytes/100 WBC (Bld) 33.4 % Normal . [facility] Comment on above: Performed By: #### N A #### [address] MCH (RBC) [Entitic mass] 34.0 pg Normal 24.7-34.3 [facility] Comment on above: Performed By: #### N A #### [address] MCV (RBC) [Entitic vol] 98.7 fL Normal 80-100 [facility] Comment on above: Performed By: #### N A #### [address] Mean Corpuscular HGB Conc 34.4 g/dL Normal 32.0-35.0 [facility] Comment on above: Performed By: #### N A #### [address] Monocytes (Bld) [#/Vol] 0.7 10*3/uL Normal 0.0-0.8 [facility] Comment on above: Performed By: #### N A #### [address] Monocytes/100 WBC (Bld) 17.6 % Normal . [facility] Comment on above: Performed By: #### N A #### [address] Neutrophils (Bld) [#/Vol] 1.8 10*3/uL Normal 1.8-7.7 [facility] Comment on above: Performed By: #### N A #### [address] Neutrophils/100 WBC (Bld) 45.6 % Normal . [facility] Comment on above: Performed By: #### N A #### [address] NRBC% 0.1 /100{WBC} Normal 0-0.5 [facility] Comment on above: Performed By: #### N A #### [address] Platelet mean volume (Bld) [Entitic vol] 7.4 fL Normal 6.3-10.7 [facility] Comment on above: Performed By: #### N A #### [address] Platelets (Bld) [#/Vol] 284 10*3/uL Normal 150-450 [facility] Comment on above: Performed By: #### N A #### [address] RBC (Bld) [#/Vol] 3.75 10*6/uL Normal 3.60-5.00 [facility] Comment on above: Performed By: #### N A #### [address] WBC (Bld) [#/Vol] 4.0 10*3/uL Normal 3.8-11.6 [facility] Comment on above: Performed By: #### N A #### [address] Magnesiumon 09-22-2024 Magnesium [Mass/Vol] 2.2 mg/dL Normal 1.9-2.7 [facility] Comment on above: Result Comment: PERF ORMED BY: [place] [address] PATHOLOGIST TAKER OFF HEMP FIBER EMIR DELGADO M.D. Performed By: #### N A #### [place] [id number] [place] Performed By: #### U RDS #### [address] Phosphoruson 09-22-2024 Phosphate [Mass/Vol] 4.2 mg/dL Normal 2.5-4.5 [facility] Comment on above: Performed By: #### N A #### [address] Performed By: #### U RDS #### [address] Sodiumon 09-22-2024 Sodium [Moles/Vol] 122 mmol/L Off scale low 136-145 [facility] Comment on above: Result Comment: Crit ical Result Called to and read back by: ABDIRASHID SANTIZO CRITICAL at: 09/22/2024 22:20:19 by:LFM PERFORMED BY: [place] [address] PATHOLOGIST TAKER OFF HEMP FIBER EMIR DELGADO M.D. Performed By: #### N A #### [address] Sodium [Moles/Vol] 123 mmol/L Off scale low 136-145 [facility] Comment on above: Result Comment: Crit ical Result Called to and read back by: RICHIE RAMOS at: 09/22/2024 18:47:38 by:LFM PERFORMED BY: [place] [address] PATHOLOGIST TAKER OFF HEMP FIBER EMIR DELGADO M.D. Performed By: #### N A #### [address] Sodium [Moles/Vol] 126 mmol/L Low 136-145 [facility] Comment on above: Result Comment: PERF ORMED BY: [place] [address] PATHOLOGIST TAKER OFF HEMP FIBER EMIR DELGADO M.D. Performed By: #### N A #### [facility] [address] [place] [address] Sodium [Moles/Vol] 129 mmol/L Low 136-145 [facility] Comment on above: Result Comment: PERF ORMED BY: [place] [address] PATHOLOGIST TAKER OFF HEMP FIBER EMIR DELGADO M.D. Performed By: #### N A #### [facility] [address] [place] [address] X-ray reportOrdered By: Lucila Mcdaniel on 09-22-2024 Study report [facility] Main [place] [address] [place] [address] XRay Report Signed Patient: Billy Argueta MR#: [id number] : 1965 Acct:[id number] Age/Sex: 59 / F ADM Date: 5 Loc: Room: [address] [place] [address] Type: ADM IN Attending Dr: Cyrus Ellison MD Copies to: MD Cyrus Hummel MD~ Ordering Provider: Christopher Aguillon MD Date of Service: 09/22/24 XR/XR chest 2V*: cough PA AND LATERAL CHEST: CLINICAL HISTORY: Lightheadedness. Hyponatremia COMPARISON: None There is slight hyperinflation. There is no focal parenchymal consolidation, effusion or pneumothorax. The cardiac, hilar and mediastinal silhouettes are within normal limits. There is no vascular congestion. The visualized bony thorax is intact. There is S-shaped scoliotic curvature and minor endplate spurring. XR/XR chest 2V* IMPRESSION: NO ACUTE CARDIOPULMONARY ABNORMALITY. Impression dictated by: Lucy Mcdaniel M.D. 09/22/2024 12:47 PM Dictation Location: [place] [address] Transcribed By: EL 09/22/241246 Dictated By: Lucy Mcdaniel MD 09/22/241245 Signed By: 09/22/24 1247 [facility] Work Phone: XR chest 2V*on 09-22-2024 XR chest 2V* [facility] Main [place] [address] [place] [address] XRay Report Signed Patient: Billy Argueta MR#: [id number] : 1965 Acct:[id number] Age/Sex: 59 / F ADM Date: 09/21/24 Loc: Room: [address] [place] [address] Type: ADM IN Attending Dr: Cyrus Ellison MD Copies to: MD Cyrus Hummel MD Ordering Provider: Christopher Aguillon MD Date of Service: 09/22/24 XR/XR chest 2V*: cough PA AND LATERAL CHEST: CLINICAL HISTORY: Lightheadedness. Hyponatremia COMPARISON: None There is slight hyperinflation. There is no focal parenchymal consolidation, effusion or pneumothorax. The cardiac, hilar and mediastinal silhouettes are within normal limits. There is no vascular congestion. The visualized bony thorax is intact. There is S-shaped scoliotic curvature and minor endplate spurring. XR/XR chest 2V* IMPRESSION: NO ACUTE CARDIOPULMONARY ABNORMALITY. Impression dictated by: Lucy Mcdaniel M.D. 09/22/2024 12:47 PM Dictation Location: [place] [address] Transcribed By: [facility] 09/22/24 1247 Dictated By: Lucy Mcdaniel MD 09/22/24 1246 Signed By: 09/22/24 1247 Normal [facility] Alanine aminotransferase [En zymatic activity/volume] in Serum or PlasmaOrdered By: Rosalva Lockhart on 09-21-2024 ALT [Catalytic activity/Vol] Alanine aminotransferase [Enzymatic activity/volume] in Serum or Plasma [facility] Albumin [Mass/volume] in Ser um or Plasma by Bromocresol green (BCG) dye binding methoOrdered By: Rosalva Lockhart on 09-21-2024 Albumin BCG dye [Mass/Vol] Albumin [Mass/volume] in Serum or Plasma by Bromocresol green (BCG) dye binding metho 3.5-5.7 [facility] Alkaline phosphatase [Enzyma tic activity/volume] in Serum or PlasmaOrdered By: Rosalva Lockhart on 09-21-2024 ALP [Catalytic activity/Vol] Alkaline phosphatase [Enzymatic activity/volume] in Serum or Plasma 34-104 [facility] Amphetamine Screen Ql (U)Ord ered By: Rosalva Lockhart on 09-21-2024 Amphetamines Ql (U) Amphetamines screen Negativ e [facility] Appearance of UrineOrdered B y: Rosalva Lockhart on 09-21-2024 Appearance (U) Urine appearance Clear [facility] Aspartate aminotransferase [ Enzymatic activity/volume] in Serum or PlasmaOrdered By: Rosalva Lockhart on 09-21-2024 AST [Catalytic activity/Vol] Aspartate aminotransferase [Enzymatic activity/volume] in Serum or Plasma 13-39 [facility] Barbiturates [Presence] in U rine by Screen methodOrdered By: Rosalva Lockhart on 09-21-2024 Barbiturates Screen Ql (U) Barbiturates [Presence] in Urine by Screen method Negative [facility] Basophils Auto (Bld) [#/Vol] Ordered By: Rosalva Lockhart on 09-21-2024 Basophils (Bld) [#/Vol] Automated basoph il count 0.0-0.2 [facility] Basophils/100 WBC Auto (Bld) Ordered By: Rosalva Lockhart on 09-21-2024 Basophils/100 WBC (Bld) Automated basophil % . [facility] Benzodiazepines Screen Ql (U )Ordered By: Rosalva Lockhart on 09-21-2024 Benzodiazepines Ql (U) Benzodiazepines [Presence] in Urine by Screen method Negative [facility] Benzoylecgonine [Presence] i n Urine by Screen methodOrdered By: Rosalva Lockhart on 09-21-2024 Benzoylecgonine Screen Ql (U) Benzoylecgonine [Presence] in Urine by Screen method Negative [facility] Bilirubin Test strip Ql (U)O rdered By: Rosalva Lockhart on 09-21-2024 Bilirubin Ql (U) Bilirubin.total [Presence] in Urine by Test strip Negative [facility] Bilirubin.total [Mass/volume ] in Serum or PlasmaOrdered By: Rosalva Lockhart on 09-21-2024 Bilirubin [Mass/Vol] Bilirubin.total [Mass/volume] in Serum or Plasma 0.3-1.[address] [facility] CT head/brain wo conon 09-21 CT head/brain wo con [facility] [place] [address] CT Scan Report Signed Patient: Billy Argueta MR#: [id number] : 1965 Acct:[id number] Age/Sex: 59 / F ADM Date: 09/21/24 Loc: ER Room: Type: [facility] ER Attending Dr: Copies to: Rosalva Lockhart DO Ordering Provider: Rosalva Lockhart DO Date of Service: 09/21/24 CT/CT head/brain wo con: lightheadedness and head pressure CT head/brain wo con 09/21/2024 4:07 PM SIGNS AND SYMPTOMS: lightheadedness and head pressure TECHNIQUE:Multi-dete ctor CT axial slices of the brain were obtained without IV contrast. CT was performed with one or more of the following dose reduction techniques: Automated exposure control, adjustment of the mA and/or kV according to patient size, or use of iterative reconstruction technique. COMPARISON: None. FINDINGS: There is no shift of the midline structures, acute intracranial bleeding, mass effects, or evidence of acute ischemia. There is periventricular white matter hypoattenuation suspicious for chronic microvascular ischemic change. The ventricular system is normal in size. The brainstem and the cerebellum are unremarkable. The visualized intraorbital contents, the visualized paranasal sinuses, and the infratemporal soft tissues show no acute abnormality. The osseous structures in the skull base and the calvarium show no abnormality. CT/CT head/brain wo con IMPRESSION: No acute intrarenal pathology. 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 Impression dictated by: Alayna Ashford M.D. 09/21/2024 5:07 PM Dictation Location: [place] [address] Transcribed By: [facility] 09/21/241706 Dictated By: Alayna Ashford II, MD 09/21/241705 Signed By: 09/21/241706 Normal [facility] Calcium [Mass/volume] in Ser um or PlasmaOrdered By: Rosalva Lockhart on 09-21-2024 Calcium [Mass/Vol] Calcium [Mass/volume] in Serum or Plasma 8.6-10.3 [facility] Cannabinoids [Presence] in U rine by Screen methodOrdered By: Rosalva Lockhart on 09-21-2024 Cannabinoids Screen Ql (U) Cannabinoids [Presence] in Urine by Screen method Negative [facility] Comment on above: These are unconfirme d results and should not be used for legal purposes. Drug Cut-Off Concentration: AMPH 1000 ng/mL YANELI 200 ng/mL MARLYS 200 ng/mL COCM 300 ng/mL OP 300 ng/mL PCP 25 ng/mL THC 20 ng/mL Carbon dioxide, total [Moles /volume] in Serum or PlasmaOrdered By: Rosalva Lockhart on 09-21-2024 CO2 [Moles/Vol] Carbon dioxide, total [Moles/volume] in Serum or Plasma 21.0-31.0 [facility] Chloride [Moles/volume] in S nate or PlasmaOrdered By: Rosalva Lockhart on 09-21-2024 Chloride [Moles/Vol] Chloride [Moles/volume] in Serum or Plasma Low 98-107 [facility] Color Auto (U)Ordered By: Lio Lockhart on 09-21-2024 Color (U) Color of Urine by Auto Yellow [facility] Complete Blood Count Auto Di ffon 09-21-2024 Basophils (Bld) [#/Vol] 0.0 10*3/uL Normal 0.0-0.2 [facility] Comment on above: Result Comment: PERF ORMED BY: [address] [place] [address] PATHOLOGIST TAKER OFF HEMP FIBER EMIR DELGADO M.D. Performed By: #### T 4T, CMP, HS TROP, TSH3, CBC #### [facility] [address] [place] [address] [place] Basophils/100 WBC (Bld) 0.8 % Normal . T rosalinda [facility] Comment on above: Performed By: #### T 4T, CMP, HS TROP, TSH3, CBC #### [facility] [address] [place] [address] [place] Eosinophils (Bld) [#/Vol] 0.0 10*3/uL Normal 0.0-0.45 [facility] Comment on above: Performed By: #### T 4T, CMP, HS TROP, TSH3, CBC #### [address] Eosinophils/100 WBC (Bld) 0.7 % Normal . [facility] Comment on above: Performed By: #### T 4T, CMP, HS TROP, TSH3, CBC #### [address] Erythrocyte distribution width (RBC) [Ratio] 12.5 % Normal 11.9-15.3 [facility] Comment on above: Performed By: #### T 4T, CMP, HS TROP, TSH3, CBC #### [address] Hematocrit (Bld) [Volume fraction] 37.5 % Normal 34.0-46.4 [facility] Comment on above: Performed By: #### T 4T, CMP, HS TROP, TSH3, CBC #### [address] Hemoglobin (Bld) [Mass/Vol] 13.1 g/dL Normal 11.8-15.4 [facility] Comment on above: Performed By: #### T 4T, CMP, HS TROP, TSH3, CBC #### [address] Lymphocytes (Bld) [#/Vol] 1.3 10*3/uL Normal 1.00-4.8 [facility] Comment on above: Performed By: #### T 4T, CMP, HS TROP, TSH3, CBC #### [address] Lymphocytes/100 WBC (Bld) 22.4 % Normal . [facility] Comment on above: Performed By: #### T 4T, CMP, HS TROP, TSH3, CBC #### [address] MCH (RBC) [Entitic mass] 34.2 pg Normal 24.7-34.3 [facility] Comment on above: Performed By: #### T 4T, CMP, HS TROP, TSH3, CBC #### [address] MCV (RBC) [Entitic vol] 98.3 fL Normal 80-100 [facility] Comment on above: Performed By: #### T 4T, CMP, HS TROP, TSH3, CBC #### [address] Mean Corpuscular HGB Conc 34.8 g/dL Normal 32.0-35.0 [facility] Comment on above: Performed By: #### T 4T, CMP, HS TROP, TSH3, CBC #### [address] Monocytes (Bld) [#/Vol] 0.5 10*3/uL Normal 0.0-0.8 [facility] Comment on above: Performed By: #### T 4T, CMP, HS TROP, TSH3, CBC #### [place] [address] [place] Monocytes/100 WBC (Bld) 16.55 % Normal 0.00-20.00 [facility] Comment on above: Performed By: #### T 4T, CMP, HS TROP, TSH3, CBC #### [place] [address] [place] Monocytes/100 WBC (Bld) 9.4 % Normal . [facility] Comment on above: Performed By: #### T 4T, CMP, HS TROP, TSH3, CBC #### [place] [address] [place] Neutrophils (Bld) [#/Vol] 3.8 10*3/uL Normal 1.8-7.7 [facility] Comment on above: Performed By: #### T 4T, CMP, HS TROP, TSH3, CBC #### [place] [address] [place] Neutrophils/100 WBC (Bld) 66.7 % Normal . [facility] Comment on above: Performed By: #### T 4T, CMP, HS TROP, TSH3, CBC #### [address] NRBC% 0.1 /100{WBC} Normal 0-0.5 [facility] Comment on above: Performed By: #### T 4T, CMP, HS TROP, TSH3, CBC #### [address] Platelet mean volume (Bld) [Entitic vol] 7.0 fL Normal 6.3-10.7 [facility] Comment on above: Performed By: #### T 4T, CMP, HS TROP, TSH3, CBC #### [address] Platelets (Bld) [#/Vol] 278 10*3/uL Normal 150-450 [facility] Comment on above: Performed By: #### T 4T, CMP, HS TROP, TSH3, CBC #### [address] RBC (Bld) [#/Vol] 3.82 10*6/uL Normal 3.60-5.00 [facility] Comment on above: Performed By: #### T 4T, CMP, HS TROP, TSH3, CBC #### [address] WBC (Bld) [#/Vol] 5.7 10*3/uL Normal 3.8-11.6 [facility] Comment on above: Performed By: #### T 4T, CMP, HS TROP, TSH3, CBC #### [address] Comprehensive Metabolic Pane lakshmi 09-21-2024 Albumin [Mass/Vol] 4.7 g/dL Normal 3.5-5.7 [facility] Comment on above: Performed By: #### R ENAL, MG #### [address] Albumin/Globulin [Mass ratio] 1.8 {ratio} Normal [facility] Comment on above: Performed By: #### R ENAL, MG #### [facility] [address] ALP [Catalytic activity/Vol] 62 U/L Normal 34-104 [facility] Comment on above: Performed By: #### R ENAL, MG #### [facility] [address] ALT [Catalytic activity/Vol] 15 U/L Normal 7-52 [facility] Comment on above: Performed By: #### R ENAL, MG #### [address] Anion gap [Moles/Vol] 12.9 mmol/L Normal 6.0-15.0 [facility] Comment on above: Performed By: #### R ENAL, MG #### [address] AST [Catalytic activity/Vol] 22 U/L Normal 13-39 [facility] Comment on above: Performed By: #### R ENAL, MG #### [place] [address] [place] Bilirubin [Mass/Vol] 0.8 mg/dL Normal 0.3-1.0 [facility] Comment on above: Performed By: #### R ENAL, MG #### [place] [address] [place] Calcium [Mass/Vol] 9.3 mg/dL Normal 8.6-10.3 [facility] Comment on above: Performed By: #### R ENAL, MG #### [place] [address] [place] Chloride [Moles/Vol] 83 mmol/L Low 98-107 [facility] Comment on above: Performed By: #### R ENAL, MG #### [place] [address] [place] CO2 [Moles/Vol] 25.8 mmol/L Normal 21.0-31.0 [facility] Comment on above: Performed By: #### R ENAL, MG #### [facility] [address] Creatinine [Mass/Vol] 0.66 mg/dL Normal 0.60-1.20 [facility] Comment on above: Performed By: #### R ENAL, MG #### [facility] [address] [place] [address] [place] Creatinine Clr Calc Pharmacy 90.69 Normal [facility] Comment on above: Performed By: #### R ENAL, MG #### [facility] [address] [place] [address] [place] GFR/1.73 sq M.predicted MDRD (S/P/Bld) [Vol rate/Area] mL/min/{1.73_m2} Normal [facility] Comment on above: Performed By: #### R ENAL, MG #### [facility] [address] Globulin (S) [Mass/Vol] 2.6 g/dL Normal T [facility] Comment on above: Performed By: #### R ENAL, MG #### [address] Glucose [Mass/Vol] 122 mg/dL High 70-100 [facility] Comment on above: Result Comment: [place] Glucose Reference Range is dependent on time and content of last meal. Glucose of more than 200 mg/dL in a nonstressed, ambulatory subject supports the diagnosis of Diabetes Mellitus. ADA recommended reference range Performed By: #### R ENAL, MG #### [facility] [address] Potassium [Moles/Vol] 3.7 mmol/L Normal 3.5-5.1 [facility] Comment on above: Performed By: #### R ENAL, MG #### [facility] [address] Protein [Mass/Vol] 7.3 g/dL Normal 6.4-8.9 [facility] Comment on above: Performed By: #### R ENAL, MG #### [address] Sodium [Moles/Vol] 118 mmol/L Off scale low 136-145 [facility] Comment on above: Result Comment: Crit ical Result Called to and read back by: CHRIS CHANEY at: 09/21/2024 17:38:06 by:[id number] Performed By: #### R ENAL, MG #### [address] Urea nitrogen [Mass/Vol] 7 mg/dL Normal 7-25 [facility] Comment on above: Performed By: #### R ENAL, MG #### [address] Creatinine [Mass/volume] in Serum or PlasmaOrdered By: Rosalva Lockhart on 09-21-2024 Creatinine [Mass/Vol] Creatinine [Mass/volume] in Serum or Plasma 0.60-1.20 [facility] Creatinine [Mass/volume] in UrineOrdered By: Rosalva Lockhart on 09-21-2024 Creatinine (U) [Mass/Vol] Creatinine [Mass/volume] in Urine [facility] Comment on above: No reference range e stablished Creatinine, Urine (Random)on 09-21-2024 Creatinine, Urine (Random) 5.00 mg/dL Normal [facility] Comment on above: Result Comment: No r eference range established PERFORMED BY: [place] [address] PATHOLOGIST TAKER OFF HEMP FIBER EMIR DELGADO M.D. Performed By: #### U CREA, UROSMO, URNA #### [place] [address] [place] Drug Screen,Urineon 09-22-19 25 Amphetamine Screen,Urine Negative Normal Negative [facility] Comment on above: Performed By: #### U RDS #### [address] Barbiturate Screen,Urine Negative Normal Negative [facility] Comment on above: Performed By: #### U RDS #### [place] [address] [place] Benzodiazepines Screen,Urine Negative Normal Negative [facility] Comment on above: Performed By: #### U RDS #### [address] Cannabinoid Screen,Urine Negative Normal Negative [facility] Comment on above: Result Comment: Thes e are unconfirmed results and should not be used for legal purposes. Drug Cut-Off Concentration: AMPH 1000 ng/mL YANELI 200 ng/mL MARLYS 200 ng/mL COCM 300 ng/mL OP 300 ng/mL PCP 25 ng/mL THC 20 ng/mL PERFORMED BY: [place] [address] PATHOLOGIST TAKER OFF HEMP FIBER EMIR DELGADO M.D. Performed By: #### U RDS #### [address] Cocaine Screen,Urine Negative Normal Negative [facility] Comment on above: Performed By: #### U RDS #### [address] Opiate Screen,Urine Negative Normal Negative [facility] Comment on above: Performed By: #### U RDS #### [address] Phencyclidine Screen,Urine Negative Normal Negative [facility] Comment on above: Performed By: #### U RDS #### [address] ECG 12 lead ECGon 09-21-2024 ECG 12 lead ECG [facility] [place] [address] Electrocardiograph Report Signed Patient: Billy Argueta MR#: [id number] : 1965 Acct:[id number] Age/Sex: 59 / F ADM Date: 09/21/24 Loc: 4 Room: [address] [place] [address] Type: ADM IN Attending Dr: Cyrus Ellison MD Ordering Provider: Rosalva Lockhart DO Date of Service: 09/21/2404/07/1549 ECG/ECG 12 lead ECG: Dizziness Copies to: Test Reason : Blood Pressure : 241/107 mmHG Vent. Rate : 73 BPM Atrial Rate : 73 BPM P-R Int : 158 ms QRS Dur : 70 ms QT Int : 370 ms P-R-T Axes : 68 69 59 degrees QTcB Int : 407 ms Normal sinus rhythm Nonspecific ST abnormality Abnormal ECG No previous ECGs available Confirmed by SU SAMUELS MD ([id number]) on 09/22/2024 2:58:26 PM Referred By: Electronically Signed By: SU SAMUELS MD Transcribed By: MUS Signed By Su Samuels MD 09/22/24 9192 Normal [facility] Eosinophils Auto (Bld) [#/Vo l]Ordered By: Rosalva Lockhart on 09-21-2024 Eosinophils (Bld) [#/Vol] Automated eosinophil count 0.0-0.45 [facility] Eosinophils/100 WBC Auto (Bl d)Ordered By: Rosalva Lockhart on 09-21-2024 Eosinophils/100 WBC (Bld) Automated eosinophil % . [facility] Erythrocyte distribution wid th Auto (RBC) [Ratio]Ordered By: Rosalva Lockhart on 09-21-2024 Erythrocyte distribution width (RBC) [Ratio] Erythrocyte distribution width [Ratio] by Automated count 11.9-15.3 [facility] Globulin Calc (S) [Mass/Vol] Ordered By: Rosalva Lockhart on 09-21-2024 Globulin (S) [Mass/Vol] Serum globulin measurement by calculation (mass/volume) [facility] Glucose [Mass/volume] in Ser um or PlasmaOrdered By: Rosalva Lockhart on 09-21-2024 Glucose [Mass/Vol] Glucose [Mass/volume] in Serum or Plasma High 70-100 [facility] Comment on above: ADA recommended refe rence rangeRandom Glucose Reference Range is dependent on time and content of last meal. Glucose of more than 200 mg/dL in a nonstressed, ambulatory subject supports the diagnosis of Diabetes Mellitus. Glucose [Mass/volume] in Uri ne by Test stripOrdered By: Rosalva Lockhart on 09-21-2024 Glucose Test strip (U) [Mass/Vol] Glucose [Mass/volume] in Urine by Test strip Normal [facility] Hematocrit Auto (Bld) [Volum e fraction]Ordered By: Rosalva Lockhart on 09-21-2024 Hematocrit (Bld) [Volume fraction] Hematocrit [Volume Fraction] of Blood by Automated count 34.0-46.4 [facility] Hemoglobin Test strip Ql (U) Ordered By: Rosalva Lockhart on 09-21-2024 Hemoglobin Ql (U) Hemoglobin [Presence] in Urine by Test strip Negative [facility] Hemoglobin [Mass/volume] in BloodOrdered By: Rosalva Lockhart on 09-21-2024 Hemoglobin (Bld) [Mass/Vol] Hemoglobin [Mass/volume] in Blood 11.8-15.4 [facility] Ketones Test strip Ql (U)Ord ered By: Rosalva Lockhart on 09-21-2024 Ketones Ql (U) Ketones [Presence] in Urine by Test strip Negative [facility] Leukocyte esterase [Presence ] in Urine by Test stripOrdered By: Rosalva Lockhart on 09-21-2024 Leukocyte esterase Test strip Ql (U) Leukocyte esterase [Presence] in Urine by Test strip Negative [facility] Leukocytes [#/volume] correc sedrick for nucleated erythrocytes in Blood by Automated counOrdered By: Rosalva Lockhart on 09-21-2024 WBC corrected for nucl RBC Auto (Bld) [#/Vol] Leukocytes [#/volume] corrected for nucleated erythrocytes in Blood by Automated coun 3.8-11.6 [facility] Lymphocytes Auto (Bld) [#/Vo l]Ordered By: Rosalva Lockhart on 09-21-2024 Lymphocytes (Bld) [#/Vol] Lymphocytes [#/volume] in Blood by Automated count 1.00-4.8 [facility] Lymphocytes/100 WBC Auto (Bl d)Ordered By: Rosalva Lockhart on 09-21-2024 Lymphocytes/100 WBC (Bld) Lymphocytes/100 leukocytes in Blood by Automated count . [facility] MCH Auto (RBC) [Entitic mass ]Ordered By: Rosalva Lockhart on 09-21-2024 MCH (RBC) [Entitic mass] MCH [Entitic mass] by Automated count 24.7-34.3 [facility] MCHC Auto (RBC) [Mass/Vol]Or dered By: Rosalva Lockhart on 09-21-2024 MCHC (RBC) [Mass/Vol] MCHC [Mass/volume] by Automated count 32.0-35.0 [facility] MCV Auto (RBC) [Entitic vol] Ordered By: Rosalva Lockhart on 09-21-2024 MCV (RBC) [Entitic vol] MCV [Entitic vol ume] by Automated count 80-100 [facility] Monocyte distribution width [Entitic volume] in Blood by AutomatedOrdered By: Rosalva Lockhart on 09-21-2024 Monocyte distribution width Auto (Bld) [Entitic vol] Monocyte distribution width [Entitic volume] in Blood by Automated 0.00-20.00 [facility] Monocytes Auto (Bld) [#/Vol] Ordered By: Rosalva Lockhart on 09-21-2024 Monocytes (Bld) [#/Vol] Automated blood monocyte count 0.0-0.8 [facility] Monocytes/100 WBC Auto (Bld) Ordered By: Rosalva Lockhart on 09-21-2024 Monocytes/100 WBC (Bld) Automated monocyte % . [facility] Neutrophils Auto (Bld) [#/Vo l]Ordered By: Rosavla Lockhart on 09-21-2024 Neutrophils (Bld) [#/Vol] Neutrophils [#/volume] in Blood by Automated count 1.8-7.7 [facility] Neutrophils/100 WBC Auto (Bl d)Ordered By: Rosalva Lockhart on 09-21-2024 Neutrophils/100 WBC (Bld) Automated neutrophil % . [facility] Nitrite Test strip Ql (U)Ord ered By: Rosalva Lockhart on 09-21-2024 Nitrite Ql (U) Nitrite [Presence] in Urine by Test strip Negative [facility] No Panel InformationOrdered By: Rosalva Lockhart on 09-21-2024 Estimated GFR (CKD-EPI) > 60.0 mL/Min [facility] Creatinine Clearance (Chem 90.69 [facility] Urine Osmolality 107 mosm Low 250-900 [facility] Nucleated erythrocytes [Pres ence] in Blood by Automated countOrdered By: Rosalva Lockhart on 09-21-2024 Nucleated RBC Auto Ql (Bld) Nucleated erythrocytes [Presence] in Blood by Automated count 0-0.5 [facility] Opiates [Presence] in Urine by Screen methodOrdered By: Rosalva Lockhart on 09-21-2024 Opiates Screen Ql (U) Opiates [Presence] in Urine by Screen method Negative [facility] Osmolalityon 09-21-2024 Osmolality 266 mosm Low 278-305 [facility] Comment on above: Result Comment: PERF ORMED BY: [place] [address] PATHOLOGIST TAKER OFF HEMP FIBER EMIR DELGADO M.D. Performed By: #### U RDS #### [place] [address] [place] Osmolality 242 mosm Low 278-305 [facility] Comment on above: Result Comment: PERF ORMED BY: [place] [address] PATHOLOGIST TAKER OFF HEMP FIBER EMIR DELGADO M.D. Performed By: #### U RDS #### [facility] [address] [place] [address] Osmolality measurementOrdere d By: Rosalva Lockhart on 09-21-2024 Osmolality (Unsp spec) [Osmolality] Osmolality measurement Low 278-305 [facility] Osmolality, Urineon 09-22-19 25 Osmolality, Urine 107 mosm Low 250-900 [facility] Comment on above: Result Comment: PERF ORMED BY: [place] [address] PATHOLOGIST TAKER OFF HEMP FIBER EMIR DELGADO M.D. Performed By: #### U CREA, UROSMO, URNA #### [facility] [address] [place] [address] [place] Phencyclidine Screen Ql (U)O rdered By: Rosalva Lockhart on 09-21-2024 Phencyclidine Ql (U) Phencyclidine [Presence] in Urine by Screen method Negative [facility] Platelet mean volume Auto (B ld) [Entitic vol]Ordered By: Rosalva Lockhart on 09-21-2024 Platelet mean volume (Bld) [Entitic vol] Platelet mean volume [Entitic volume] in Blood by Automated count 6.3-10.7 [facility] Platelets Auto (Bld) [#/Vol] Ordered By: Rosalva Lockhart on 09-21-2024 Platelets (Bld) [#/Vol] Platelets [#/vol ume] in Blood by Automated count 150-450 [facility] Potassium [Moles/volume] in Serum or PlasmaOrdered By: Rosalva Lockhart on 09-21-2024 Potassium [Moles/Vol] Potassium [Moles/volume] in Serum or Plasma 3.5-5.1 [facility] Protein Test strip (U) [Mass /Vol]Ordered By: Rosalva Lockhart on 09-21-2024 Protein (U) [Mass/Vol] Protein [Mass/volume] in Urine by Test strip Negative [facility] Protein [Mass/volume] in Ser um or PlasmaOrdered By: Rosalva Lockhart on 09-21-2024 Protein [Mass/Vol] Protein [Mass/volume] in Serum or Plasma 6.4-8.9 [facility] RBC Auto (Bld) [#/Vol]Ordere d By: Rosalva Lockhart on 09-21-2024 RBC (Bld) [#/Vol] Erythrocytes [#/volume] in Blood by Automated count 3.60-5.00 [facility] Serum or plasma albumin/glob ulin mass ratioOrdered By: Rosalva Lockhart on 09-21-2024 Albumin/Globulin [Mass ratio] Serum or plasma albumin/globulin mass ratio [facility] Serum or plasma anion gap de terminationOrdered By: Rosalva Lockhart on 09-21-2024 Anion gap [Moles/Vol] Serum or plasma anion gap determination 6.0-15.0 [facility] Sodium [Moles/volume] in Ser um or PlasmaOrdered By: Rosalva Lockhart on 09-21-2024 Sodium [Moles/Vol] Sodium [Moles/volume] in Serum or Plasma Critically low 136-145 [facility] Comment on above: Critical Result Call ed to and read back by: CHRIS CHANEY at: 09/21/2024 17:38:06 by:[id number] Sodium [Moles/volume] in Uri neOrdered By: Rosalva Lockhart on 09-21-2024 Sodium (U) [Moles/Vol] Sodium [Moles/volume] in Urine [facility] Comment on above: No reference range e stablished Sodium, Urineon 09-21-2024 Sodium (U) [Moles/Vol] 40.0 mmol/L Normal [facility] Comment on above: Result Comment: No r eference range established Performed By: #### U CREA, UROSMO, URNA #### [address] Specific gravity Test strip (U) [Rel density]Ordered By: Rosalva Lockhart on 09-21-2024 Specific gravity (U) [Rel density] Specific gravity of Urine by Test strip 1.001-1.030 [facility] Thyroid Stimulating Hormoneo n 09-21-2024 TSH Qn 0.87 m[IU]/L Normal 0.45-5.33 [facility] Comment on above: Result Comment: PERF ORMED BY: [place] [address] PATHOLOGIST TAKER OFF HEMP FIBER EMIR DELGADO M.D. Performed By: #### MG MELYSSA #### [address] Thyrotropin [Units/volume] i n Serum or PlasmaOrdered By: Rosalva Lockhart on 09-21-2024 TSH Qn Thyrotropin [Units/volume] in Serum or Plasma 0.45-5.33 [facility] Thyroxine (T4) Totalon 09-21 T4 [Mass/Vol] 7.57 ug/dL Normal 5.39-11.82 [facility] Comment on above: Performed By: #### MG MELYSSA #### [address] Thyroxine (T4) [Mass/volume] in Serum or PlasmaOrdered By: Rosalva Lockhart on 09-21-2024 T4 [Mass/Vol] Thyroxine (T4) [Mass/volume] in Serum or Plasma 5.39-11.82 [facility] Troponin I High Sensitivityo n 09-21-2024 Troponin I High Sensitivity 24 High 0-15 [facility] Comment on above: Result Comment: The Troponin units of report have been changed to meet the Chest Pain Accreditation requirement, element EC5.M1l2. Troponin units are changed from pg/ml to ng/L. Also, the decimal is removed and results are in whole numbers. PERFORMED BY: [place] [address] PATHOLOGIST TAKER OFF HEMP FIBER EMIR DELGADO M.D. Performed By: #### MG MELYSSA #### [facility] [address] [place] [address] Troponin I High Sensitivity 4 Normal 0-15 [facility] Comment on above: Result Comment: The Troponin units of report have been changed to meet the Chest Pain Accreditation requirement, element EC5.M1l2. Troponin units are changed from pg/ml to ng/L. Also, the decimal is removed and results are in whole numbers. PERFORMED BY: [place] [address] PATHOLOGIST TAKER OFF HEMP FIBER EMIR DELGADO M.D. Performed By: #### MG MELYSSA #### [facility] [address] [place] [address] Troponin I.cardiac [Mass/vol ume] in Serum or Plasma by Detection limit <= 0.01 ng/Ordered By: Rosalva Lockhart on 09-21-2024 Troponin I.cardiac DL <= 0.01 ng/mL [Mass/Vol] Troponin I.cardiac [Mass/volume] in Serum or Plasma by Detection limit <= 0.01 ng/ High 0-15 [facility] Comment on above: The Troponin units o f report have been changed to meet the Chest Pain Accreditation requirement, element EC5.M1l2. Troponin units are changed from pg/ml to ng/L. Also, the decimal is removed and results are in whole numbers. Urea nitrogen [Mass/volume] in Serum or PlasmaOrdered By: Rosalva Lockhart on 09-21-2024 Urea nitrogen [Mass/Vol] Urea nitrogen [Mass/volume] in Serum or Plasma 12-05 [facility] Urinalysison 09-21-2024 Appearance (U) Clear Normal Clear [facility] Comment on above: Order Comment: Name Collection Type:: Clean-Voided Midstream Performed By: #### U A #### [place] [address] [place] Bilirubin,Urine Negative Normal Negative [facility] Comment on above: Order Comment: Name Collection Type:: Clean-Voided Midstream Performed By: #### U A #### [place] [id number] [place] Color (U) Colorless Normal Yellow [facility] Comment on above: Order Comment: Name Collection Type:: Clean-Voided Midstream Performed By: #### U A #### [place] [address] [place] Glucose Ql (U) Normal Normal Normal [facility] Comment on above: Order Comment: Name Collection Type:: Clean-Voided Midstream Performed By: #### U A #### [place] [address] [place] Ketones Ql (U) Negative Normal Negative [facility] Comment on above: Order Comment: Name Collection Type:: Clean-Voided Midstream Performed By: #### U A #### [place] [address] [place] Leukocyte esterase Test strip Ql (U) Negative Normal Negative [facility] Comment on above: Order Comment: Name Collection Type:: Clean-Voided Midstream Performed By: #### U A #### [place] [id number] [place] Nitrite,Urine Negative Normal Negative [facility] Comment on above: Order Comment: Name Collection Type:: Clean-Voided Midstream Performed By: #### U A #### [place] [id number] [place] Occult Blood,Urine Negative Normal Negative [facility] Comment on above: Order Comment: Name Collection Type:: Clean-Voided Midstream Result Comment: PERF ORMED BY: [address] [place] [address] PATHOLOGIST TAKER OFF HEMP FIBER EMIR DELGADO M.D. Performed By: #### U A #### [address] pH (U) 7.0 [pH] Normal 5.0-9.0 [facility] Comment on above: Order Comment: Name Collection Type:: Clean-Voided Midstream Performed By: #### U A #### [address] Protein,Urine Negative Normal Negative [facility] Comment on above: Order Comment: Name Collection Type:: Clean-Voided Midstream Performed By: #### U A #### [address] Specificy [place],Urine 1.002 Normal 1.001-1.030 [facility] Comment on above: Order Comment: Name Collection Type:: Clean-Voided Midstream Performed By: #### U A #### [address] Urobilinogen,Urine Normal Normal Normal [facility] Comment on above: Order Comment: Name Collection Type:: Clean-Voided Midstream Performed By: #### U A #### [address] Urobilinogen Test strip (U) [Mass/Vol]Ordered By: Rosalva Lockhart on 09-21-2024 Urobilinogen (U) [Mass/Vol] Urobilinogen [Mass/volume] in Urine by Test strip Normal [facility] WBC Auto (Bld) [#/Vol]Ordere d By: Rosalva Lockhart on 09-21-2024 WBC (Bld) [#/Vol] Leukocytes [#/volume] in Blood by Automated count 3.8-11.6 [facility] pH Test strip (U)Ordered By: Rosalva Lockhart on 09-21-2024 pH (U) pH of Urine by Test strip 5.0-9.0 [facility] Family Medicine Office/Clini c Noteon 06-06-2024 Family Medicine Office/Clinic Note Family Medicine Office/Clinic Note HPI Staff Billy is a 59 year old female presenting for acute sick visit Respiratory C/O: Onset: 1.5 weeks ago Body aches: no Chest congestion: no Chills: no Cough: no very random Sputum production: no Sore throat: dry not sore Ear complaints: yes pressure mostly right ear Eye itching/watering: no Fever: no Headache: yes Nasal congestion: no Nasal discharge: yes Poor appetite: no Reduced activity: no Sinus pain/pressure: yes Sneezing: no Wheezing: no Ill contacts: no Remedies tried: Coricidin sinus, Tylenol History of Present Illness pt presents today with congestion and ear pressure Review of Systems PHQ Score Initial Depression Screen Score: 0 SCORE Physical Exam Vitals & Measurements T: 36.9 ???C(Tympanic) HR: 62(Peripheral) RR: 18 BP: 142/76 HT: 68 in HT: 172.0 cm WT: 65.1 kg WT: 143.521 lb BMI: 22.01 General: alert, no acute distress ENMT: oral mucosa moist, no pharyngeal erythema or exudate, MITCH TM full of fluid, right TM red as well as canal Cardiovascular: regular rate and rhythm, normal peripheral perfusion Respiratory: Lungs CTA, respirations non labored Extremities: no deformity, no trauma Neurological: oriented x 4, LOC appropriate for age, CN II-XII intact, motor strength equal & normal bilaterally, speech normal Assessment/Plan 1. Right otitis media (H66.91: Otitis media, unspecified, right ear) right OM noted on exam. will treat with augmentin. pt to continue flonase and daily antihistamine. 2. BMI 22.0-22.9, adult (Z68.22: Body mass index [BMI] 22.0-22.9, adult) BMI education given 3. Non-smoker (Z78.9: Other specified health status) continue not smoking Orders: amoxicillin-clavulan ate, 1 tab(s), Oral, q12hr for 7 day(s), 14 tab(s), Refill(s) 0, [id number], 172, cm, 06/06/24 11:51:00 EST, Height/Length Dosing, 65.1, kg, 06/06/24 11:51:00 EST, Weight Dosing fluticasone nasal, 2 spray(s), Nasal, Daily, 16 gram, Refill(s) 0, each nostril, [facility]pharmacy #[id number], 172, cm, 03/11/24 11:29:00 EDT, Height/Length Dosing, 65.2, kg, 03/11/24 11:29:00 EDT, Weight Dosing methylPREDNISolone, = 1 packet(s), Oral, Once, as directed on package labeling, # 21 tab(s), Refills(s) 0, Pharmacy: [facility]/pharmacy #[id number], 172, cm, 06/06/24 11:51:00 EST, Height/Length Dosing, 65.1, kg, 06/06/24 11:51:00 EST, Weight Dosing Follow-up No qualifying data available Problem List/Past Medical History Ongoing Allergic rhinitis ROBB positive BMI 22.0-22.9, adult BMI 23.0-23.9, adult Cervical spondylosis Congestion of nasal sinus COVID Depression Dizziness Foraminal stenosis of cervical region HTN (hypertension) Leg cramps Neuropathy Piriformis syndrome Right otitis media Seasonal allergies Historical No qualifying data Procedure/Surgical History CEIOL - cataract extraction and implantation of intraocular lens (05/10/2023), IOL - intraocular lens implant (04/12/2023), Back fusion, section, Colonoscopy, Ovarian cystectomy, Surgery. Medications amoxicillin-clavulan ate 875 mg-125 mg Tab, 1 tab(s), Oral, q12hr bisoprolol-hydrochlo rothiazide 5 mg-6.25 mg Tab, See Instructions methylPREDNISolone 4 mg tab dosepak, 1 packet(s), Oral, Once Allergies No Known Medication Allergies Social History Alcohol Current. Wine. 1-2 times per month., 02/28/2024 Substance Abuse Never., 02/28/2024 Tobacco Former smoker, quit more than 30 days ago, quit 2018 Tobacco Use:. Never Smokeless Tobacco Use:. Yes, 03/11/2024 [facility] Comment on above: Result Comment: Elec tronically Signed By: Tara Abreu\.br\Date and Time Signed: 06/06/24 13:06 EST X-ray reportOrdered By: Lorenzo Ron on 03-25-2024 Study report [facility] Main [place] [address] [place] [address] XRay Report Signed Patient: Billy Argueta MR#: [id number] : 1965 Acct:[id number] Age/Sex: 59 / F ADM Date: 4 Loc: XD Room: Type: REG CLI Attending Dr: Kelsey Barnes FOAM MACHINE OPERATOR Copies to: Kelsey Barnes APRN~ Ordering Provider: Kelsey Barnes APRN Date of Service: 03/25/24 XR/XR cerv spine AP/LAT/FLX/EXT: M54.12 - Radiculopathy, cervical region AP with lateral neutral, flexion extension viewscervical spine HISTORY: Neck pain. Radiation down the arms COMPARISON: None POSTOPERATIVE CHANGES: None BONY ALIGNMENT: Straightening HYPERMOBILITY::Mild C4-5 hypermobility LISTHESIS:Mild midcervical degenerative listhesis FRACTURE: None DISC DEGENERATION: Extensive C5-6 and C6-7 spondylosis. Mild C4-5 spondylosis FACETS: Unremarkable FORAMEN: Unremarkable. DENS: Intact CRANIOCERVICAL JUNCTION: Unremarkable SOFT TISSUES: Unremarkable XR/XR cerv spine AP/LAT/FLX/EXT IMPRESSION: Mild C4-5 hypermobility. Extensive mid cervical degeneration. Impression dictated by: Carlos Ron M.D.03/25/2024 8:39 PM Dictation Location: [place] [address] Transcribed By: [facility] 03/25/242038 Dictated By: Carlos Ron DO 03/25/242036 Signed By: 03/25/242038 [facility] XR cerv spine AP/LAT/FLX/EXT on 03-25-2024 XR cerv spine AP/LAT/FLX/EXT [facility] Main [address] [address] XRay Report Signed Patient: Billy Argueta MR#: [id number] : 1965 Acct:[id number] Age/Sex: 59 / F ADM Date: 03/25/24 Loc: XD Room: Type: REG CLI Attending Dr: Kelsey Barnes FOAM MACHINE OPERATOR Copies to: Kelsey Barnes APRN Ordering Provider: Kelsey Barnes APRN Date of Service: 03/25/24 XR/XR cerv spine AP/LAT/FLX/EXT: M54.12 - Radiculopathy, cervical region AP with lateral neutral, flexion extension viewscervical spine HISTORY: Neck pain. Radiation down the arms COMPARISON: None POSTOPERATIVE CHANGES: None BONY ALIGNMENT: Straightening HYPERMOBILITY::Mild C4-5 hypermobility LISTHESIS:Mild midcervical degenerative listhesis FRACTURE: None DISC DEGENERATION: Extensive C5-6 and C6-7 spondylosis. Mild C4-5 spondylosis FACETS: Unremarkable FORAMEN: Unremarkable. DENS: Intact CRANIOCERVICAL JUNCTION: Unremarkable SOFT TISSUES: Unremarkable XR/XR cerv spine AP/LAT/FLX/EXT IMPRESSION: Mild C4-5 hypermobility. Extensive mid cervical degeneration. Impression dictated by: Carlos Ron M.D.03/25/2024 8:39 PM Dictation Location: [place] [address] Transcribed By: [facility] 03/25/242038 Dictated By: Carlos Ron DO 03/25/242036 Signed By: 03/25/242038 Normal [facility] Ambulatory Visit Summaryon 1 Ambulatory Visit Summary Ambulatory Visit Summary BILLY ARGUETA :1965 Visit Date:03/11/2024 Ambulatory Visit Instructions Your Diagnosis Former smoker BMI 22.0-22.9, adult Your Care Team Attending Physician - MARY MERCADO CNP Primary Care Physician - Tara Abreu This Is Your Medications List bisoprolol-hydrochlo rothiazide (bisoprolol-hydrochl orothiazide 5 mg-6.25 mg Tab) Procedures Performed CEIOL - cataract extraction and implantation of intraocular lens (05/10/2023), IOL - intraocular lens implant (04/12/2023), Back fusion, section, Colonoscopy, Ovarian cystectomy, Surgery. Discharge Vitals Temperature (Oral) 36.8 ???C Heart Rate (Peripheral) 62 Respiratory Rate 18 Blood Pressure 136/88 Height 172.0 cm Height 68 in Weight 65.2 kg Weight 143.44 lb BMI 22.04 Medications What How Much When Instructions Unchanged bisoprolol-hydrochlo rothiazide (bisoprolol-hydrochl orothiazide 5 mg-6.25 mg Tab) See instructions TAKE 1 TABLET BY MOUTH EVERY DAY Allergies No Known Medication Allergies Problems Ongoing - Any problem that you are currently receiving treatment for. Allergic rhinitis ROBB positive BMI 22.0-22.9, adult BMI 23.0-23.9, adult Cervical spondylosis Congestion of nasal sinus COVID Depression Dizziness Foraminal stenosis of cervical region HTN (hypertension) Leg cramps Neuropathy Piriformis syndrome Seasonal allergies Patient Survey You may receive a survey via text or e-mail asking about your office visit. Please share your experience with us by completing your survey. We appreciate your feedback and thank you for choosing us for your care. Normal [facility] Family Medicine Office/Clini c Noteon 03-11-2024 Family Medicine Office/Clinic Note Family Medicine Office/Clinic Note HPI Staff Billy is a 59 year old female presenting with finishing antibiotic still not feeling better She thinks it feels she is back to square one, and even feel worse than before more intense head pain he took OTC sinus pressure medicine takes the edge off History of Present Illness 59 year old patient of Eli Ferrari CNP presents today for recheck of sinusitis. She was seen by her pcp on 02/28/2024 and received a course of amoxicillin- clavulanate which she completed and an injection of kenalog. She reports se does not feel better she actually feels worse. She denies fever, chills, and body aches. Review of Systems PHQ Score Initial Depression Screen Score: 0 SCORE Constitutional: no fever, no chills, no sweats, no weakness Skin: no Jaundice, no rash, no lesions, nopetechiae ENMT: no ear pain, no sore throat, no congestion, no hoarseness Respiratory: no shortness of breath, no cough, no orthopnea, no wheezing Cardiovascular: no chest pain, no palpitations, no edema Musculoskeletal: no back pain, no trauma Neurologic: no headache, no dizziness, no numbness, no weakness Psychiatric: no sleeping problems, no irritability, no mood swings/depression. Additional ROS info: Except as noted in the above Review of Systems and in the History of Present Illness all other systems have been reviewed and are negative or noncontributory. Physical Exam Vitals & Measurements T: 36.8 ???C(Oral) HR: 62(Peripheral) RR: 18 BP: 136/88 SpO2: 98% HT: 68 in HT: 172.0 cm WT: 65.2 kg WT: 143.44 lb BMI: 22.04 General: alert, no acute distress ENMT: TM's clear, oral mucosa moist, no pharyngeal erythema or exudate; mild frontal sinus tenderness Cardiovascular: regular rate and rhythm, normal peripheral perfusion Respiratory: Lungs CTA, respirations non labored Extremities: no deformity, no trauma Neurological: oriented x 4, LOC appropriate for age speech normal Assessment/Plan 1. Congestion of nasal sinus (R09.81: Nasal congestion) Discussed OTC Netti Pot- patient reports she was told these force bacteria into the brain Discussed viral vs bacterial infections If no improvement with a new ATB, would consider CT of the sinuses Start doxycycline 100 mg one tablet po BID x 10 days F/u with PCP if no improvement Ordered: doxycycline, 100 mg = 1 cap(s), Oral, BID, # 20 cap(s), Refills(s) 0, Pharmacy: [facility]/pharmacy #[id number], 172, cm, 03/11/24 11:29:00 EDT, Height/Length Dosing, 65.2, kg, 03/11/24 11:29:00 EDT, Weight Dosing 2. Former smoker (Z87.891: Personal history of nicotine dependence) Encouraged to continue with a non-smoker 3. BMI 22.0-22.9, adult (Z68.22: Body mass index [BMI] 22.0-22.9, adult) BMI is 22.04 Encourage daily exercise Diet as tolerated Monitor weight at each visit Follow-up No qualifying data available Problem List/Past Medical History Ongoing Allergic rhinitis ROBB positive BMI 22.0-22.9, adult BMI 23.0-23.9, adult Cervical spondylosis Congestion of nasal sinus COVID Depression Dizziness Foraminal stenosis of cervical region HTN (hypertension) Leg cramps Neuropathy Piriformis syndrome Seasonal allergies Historical No qualifying data Procedure/Surgical History CEIOL - cataract extraction and implantation of intraocular lens (05/10/2023), IOL - intraocular lens implant (04/12/2023), Back fusion, section, Colonoscopy, Ovarian cystectomy, Surgery. Medications bisoprolol-hydrochlo rothiazide 5 mg-6.25 mg Tab, See Instructions doxycycline hyclate 100 mg Cap, 100 mg= 1 cap(s), Oral, BID Flonase 0.05 mg/inh [place], 2 spray(s), Nasal, Daily Medrol 4 mg Tab, 1 packet(s), Oral, As Directed Allergies No Known Medication Allergies Social History Alcohol Current. Wine. 1-2 times per month., 02/28/2024 Substance Abuse Never., 02/28/2024 Tobacco Former smoker, quit more than 30 days ago, quit 2017 Tobacco Use:. Never Smokeless Tobacco Use:. Yes, 03/11/2024 [facility] Comment on above: Result Comment: Elec tronically Signed By: MARY MERCADO CNP\.br\Date and Time Signed: 03/11/24 13:05 EDT Ambulatory Visit Summaryon 1 Ambulatory Visit Summary Ambulatory Visit Summary BILLY ARGUETA :1965 Visit Date:02/28/2024 Ambulatory Visit Instructions Your Diagnosis Cervical spondylosis Foraminal stenosis of cervical region Seasonal allergies Non-smoker BMI 22.0-22.9, adult Sinusitis Your Care Team Attending Physician - Tara Abreu Primary Care Physician - Tara Abreu This Is Your Medications List amoxicillin-clavulan ate (Augmentin 875 mg oral tablet) bisoprolol-hydrochlo rothiazide (bisoprolol-hydrochl orothiazide 5 mg-6.25 mg Tab) Procedures Performed CEIOL - cataract extraction and implantation of intraocular lens (05/10/2023), IOL - intraocular lens implant (04/12/2023), Back fusion, section, Colonoscopy, Ovarian cystectomy, Surgery. Discharge Vitals Temperature (Tympanic) 36.3 ?C Heart Rate (Peripheral) 65 Respiratory Rate 16 Blood Pressure 132/80 Height 172 cm Height 68 in Weight 67.5 kg Weight 148.5 lb BMI 22.82 Medications What How Much When Why Instructions New amoxicillin-clavulan ate (Augmentin 875 mg oral tablet) 1 Tablets By Mouth Every 12 hours Sinusitis Duration: 7 Days Pickup at [facility]/pharmacy #[id number] Unchanged bisoprolol-hydrochlo rothiazide (bisoprolol-hydrochl orothiazide 5 mg-6.25 mg Tab) See instructions TAKE 1 TABLET BY MOUTH EVERY DAY Pharmacy Information [id number]: [address] [place], [place] [id number] [phone] Allergies No Known Medication Allergies Problems Ongoing - Any problem that you are currently receiving treatment for. Allergic rhinitis ROBB positive BMI 22.0-22.9, adult BMI 23.0-23.9, adult Cervical spondylosis Congestion of nasal sinus COVID Depression Dizziness Foraminal stenosis of cervical region HTN (hypertension) Leg cramps Neuropathy Piriformis syndrome Seasonal allergies Patient Survey You may receive a survey via text or e-mail asking about your office visit. Please share your experience with us by completing your survey. We appreciate your feedback and thank you for choosing us for your care. Normal [facility] Family Medicine Office/Clini c Noteon 02-28-2024 Family Medicine Office/Clinic Note Family Medicine Office/Clinic Note Chief Complaint Sinus Congestion HPI Staff Pt presents today due to sinus congestion & neck pain. Sinus pressure & congestion for the past week. Denies fever. Would also like to f/u to referral from Dr Ridley to [facility] for neck & back. History of Present Illness pt presents with URI symptoms and would like to discuss referral for neck pain Review of Systems PHQ Score Initial Depression Screen Score: 0 SCORE Physical Exam Vitals & Measurements T: 36.3 ?C(Tympanic) HR: 65(Peripheral) RR: 16 BP: 132/80 SpO2: 97% HT: 68 in HT: 172 cm WT: 67.5 kg WT: 148.5 lb BMI: 22.82 General: alert, no acute distress ENMT: oral mucosa moist, no pharyngeal erythema or exudate, MITCH TM full of clear fluid and red Cardiovascular: regular rate and rhythm, normal peripheral perfusion Respiratory: Lungs CTA, respirations non labored Extremities: no deformity, no trauma Neurological: oriented x 4, LOC appropriate for age, CN II-XII intact, motor strength equal & normal bilaterally, speech normal Assessment/Plan 1. Sinusitis (J32.9: Chronic sinusitis, unspecified) Sinus tenderness, right facial sinus swollen. MITCH TM full of fluid and red. Will order augmentin Ordered: amoxicillin-clavulan ate, = 1 tab(s), Oral, q12hr, X 7 day(s), # 14 tab(s), Refills(s) 0, Pharmacy: [facility]/pharmacy #[id number], 172, cm, 02/28/24 8:26:00 EDT, Height/Length Dosing, 67.5, kg, 02/28/24 8:32:00 EDT, Weight Dosing 2. Cervical spondylosis (M47.812: Spondylosis without myelopathy or radiculopathy, cervical region) pt was seen by [facility] for this and was told they could do surgery but it could cause limited mobility of her neck. They suggested injections. pt is terrified of injections because when she had her baby she had an epidural that caused a leak of spinal fluid and had to have 3 blood patches to correct it. So she would really rather have surgery. pt would really like to have surgery because the pain is now affecting every day life activites. Last MRI was done at [facility] in [place]. will send referral to [facility] spine [facility]. Ordered: [facility] External Ambulatory Referral 3. Foraminal stenosis of cervical region (M48.02: Spinal stenosis, cervical region) see above Ordered: [facility] External Ambulatory Referral 4. Seasonal allergies (J30.2: Other seasonal allergic rhinitis) kenalog given in office today Ordered: triamcinolone, 40 mg = 1 mL, Injection, IntraMuscular, Once, Stop date 02/28/24 9:00:00 EDT, Routine, Start date 02/28/24 9:00:00 EDT, 02/28/24 9:00:00 EDT 5. Non-smoker (Z78.9: Other specified health status) continue not smoking Ordered: Body Mass Index (BMI) documented 3008F Current tobacco non-user 1036F Depression Screening Negative 3352F Discharge medications reconciled with current medications in outpatient record 1111F [facility] External Ambulatory Referral Influenza immunization status assessed 1030F Medication list documented in medical record 1159F Most recent diastolic blood pressure 80-89 mm Hg 3079F Patient screen for fall risk: no falls in last year or 1 fall with no injury in last year 1101F Review of all meds by a prescribing practitioner or clinical pharmacist documented in EHR 1160F Systolic BP 130-139 mm Hg (Most Recent) 3075F 6. BMI 22.0-22.9, adult (Z68.22: Body mass index [BMI] 22.0-22.9, adult) BMI education Follow-up No qualifying data available Problem List/Past Medical History Ongoing Allergic rhinitis ROBB positive BMI 22.0-22.9, adult BMI 23.0-23.9, adult Cervical spondylosis Congestion of nasal sinus COVID Depression Dizziness Foraminal stenosis of cervical region HTN (hypertension) Leg cramps Neuropathy Piriformis syndrome Seasonal allergies Historical No qualifying data Procedure/Surgical History CEIOL - cataract extraction and implantation of intraocular lens (05/10/2023), IOL - intraocular lens implant (04/12/2023), Back fusion, section, Colonoscopy, Ovarian cystectomy, Surgery. Medications Augmentin 875 mg oral tablet, 1 tab(s), Oral, q12hr bisoprolol-hydrochlo rothiazide 5 mg-6.25 mg Tab, See Instructions Allergies No Known Medication Allergies Social History Alcohol Current. Wine. 1-2 times per month., 02/28/2024 Substance Abuse Never., 02/28/2024 Tobacco Former smoker, quit more than 30 days ago Tobacco Use:. Never Smokeless Tobacco Use:. Yes, 02/28/2024 Normal [facility] Comment on above: Result Comment: Elec tronically Signed By: Tara Abreu\.br\Date and Time Signed: 02/28/24 10:56 EDT CHEMISTRYOrdered By: SYSTEM SYSTEM on 01-05-2023 Albumin [Mass/Vol] 4.4 g/dL Normal 3.3 - 5.0 gm/dL [facility] Albumin/Globulin [Mass ratio] 1.6 {ratio} Normal 1.1 - 2.2 [facility] ALP [Catalytic activity/Vol] 58 [iU]/d Normal 21 - 98 Int._Unit/L [facility] ALT No additional P-5'-P [Catalytic activity/Vol] 20 [iU]/d Normal 6 - 46 Int._Unit/L [facility] Anion gap [Moles/Vol] 14 mmol/L Normal 6 - 16 mEq/L [facility] AST [Catalytic activity/Vol] 25 [iU]/d Normal 5 - 43 Int._Unit/L [facility] Bilirubin [Mass/Vol] 0.6 mg/dL Normal 0.0 - 1 .1 mg/dL [facility] Calcium [Mass/Vol] 9.5 mg/dL Normal 8.9 - 11. 1 mg/dL [facility] Chloride [Moles/Vol] 98 mmol/L Low 101 - 1 11 mmol/L [facility] Cholesterol [Mass/Vol] 236 mg/dL High 120 - 200 mg/dL [facility] Cholesterol in HDL [Mass/Vol] 109 mg/dL Invalid Interpretation Code [facility] Cholesterol in LDL [Mass/Vol] 98 mg/dL Normal <=129mg/dL [facility] Cholesterol in VLDL [Mass/Vol] 7 mg/dL Normal 7 - 40 mg/dL [facility] CO2 [Moles/Vol] 23 mmol/L Normal 21 - 31 mmol/L [facility] Creatinine [Mass/Vol] 0.8 mg/dL Normal 0.5 - 1.3 mg/dL [facility] GFR/1.73 sq M.predicted among non-blacks MDRD (S/P/Bld) [Vol rate/Area] 86 mL/min/1.73 m2 Normal >=59mL/min/ 1.73 m2 [facility] Chem S Globulin (S) [Mass/Vol] 2.7 g/dL Normal 1.4 - 4.0 gm/dL [facility] Remisol Glucose [Mass/Vol] 89 mg/dL Normal 55 - 199 mg/dL [facility] Remisol Potassium [Moles/Vol] 4.4 mmol/L Normal 3.5 - 5.3 mmol/L [facility] Rem[facility] Protein [Mass/Vol] 7.1 g/dL Normal 6.0 - 7.8 gm/dL [facility] Sodium [Moles/Vol] 131 mmol/L Low 135 - 145 mmol/L [facility] Remisol Triglyceride [Mass/Vol] 36 mg/dL Normal <=149mg/dL [facility] TSH Qn 0.91 m[IU]/L Normal 0.34 - 5.60 mcIU/mL [facility] Urea nitrogen [Mass/Vol] 9 mg/dL Normal 5 - 21 mg/dL [facility] Remisol Urea nitrogen/Creatinine [Mass ratio] 11 mg/mg Normal 10 - 20 [facility] Remisol HEMATOLOGYOrdered By: SYSTEM SYSTEM on 08-25-2023 Basophils/100 WBC (Bld) 0.6 % Normal 0.0 - 2.0 % [facility] HemeAutoSS Basophils/Leukocytes Auto (Bld) [Pure # fraction] 0.0 E9/L Normal 0.0 - 0.2 E9/L [facility] HemeAutoSS Eosinophils/100 WBC (Bld) 2.6 % Normal 0.0 - 8.0 % [facility] HemeAutoSS Eosinophils/Leukocytes Auto (Bld) [Pure # fraction] 0.1 E9/L Normal 0.0 - 0.5 E9/L [facility] HemeAutoSS Lymphocytes/100 WBC (Bld) 34.1 % Normal 14.0 - 50.0 % [facility] HemeAutoSS Lymphocytes/Leukocytes Auto (Bld) [Pure # fraction] 1.1 E9/L Normal 1.0 - 4.0 E9/L [facility] HemeAutoSS Monocytes/100 WBC (Bld) 11.4 % Normal 4.0 - 14.0 % [facility] HemeAutoSS Monocytes/Leukocytes Auto (Bld) [Pure # fraction] 0.4 E9/L Normal 0.2 - 1.0 E9/L [facility] HemeAutoSS Neutrophils/100 WBC (Bld) 51.3 % Normal 36.0 - 75.0 % [facility] HemeAutoSS Neutrophils/Leukocytes Auto (Bld) [Pure # fraction] 1.6 E9/L Low 2.0 - 7.5 E9/L [facility] HemeAutoSS HEMATOLOGYOrdered By: Honorio Sauceda on 01-05-2023 Erythrocyte distribution width (RBC) [Ratio] 13.6 % Normal 10.9 - 14.2 % [facility] HemeAutoSS Hematocrit (Bld) [Volume fraction] 33.9 % Low 34.0 - 46.0 % [facility] HemeAutoSS Hemoglobin (Bld) [Mass/Vol] 11.4 g/dL Low 12.0 - 16.0 gm/dL [facility] HemeAutoSS MCH (RBC) [Entitic mass] 33.6 pg Normal 27.0 - 34.0 pg [facility] HemeAutoSS MCHC (RBC) [Mass/Vol] 33.7 g/dL Normal 31.4 - 36.0 gm/dL [facility] HemeAutoSS MCV (RBC) [Entitic vol] 99.4 fL Normal 80.0 - 100.0 fL [facility] HemeAutoSS Platelet mean volume (Bld) [Entitic vol] 7.4 fL Normal 6.4 - 10.8 fL [facility] HemeAutoSS Platelets (Bld) [#/Vol] 356.0 E9/L Normal 150. 0 - 500.0 E9/L [facility] HemeAutoSS RBC (Bld) [#/Vol] 3.4 E12/L Low 4.3 - 5.9 E12/L [facility] HemeAutoSS WBC corrected for nucl RBC Auto (Bld) [#/Vol] 3.2 E9/L Low 4.0 - 11.0 E9/L [facility] HemeAutoSS Quick Strepon 11-30-2022 S. pyogenes Org specific cx Ql (Throat) Negative [employer] Other Quick Strep [employer] Other COVID + FLU Quick Testingon 10-08-2022 SARS-CoV-2 (COVID-19) RNA CALIN+probe Ql (Unsp spec) Negative [employer] Other COVID + FLU Quick Testing Negative [employer] Other Quick Strepon 10-08-2022 S. pyogenes Org specific cx Ql (Throat) Negative [employer] Other Quick Strep [employer] Other [employer] 10-14-2021 [facility] Telephone (NIQ) BILLY ARGUETA ([id number]) 1965 F Date Time Provider Department 10/14/21 VICKIE JOSE During your visit today, we recorded the following information about you: Alejandra Banuelos 10/14/2021 10:27 AM Signed Received the following record(s) via Fax. -Discharge Note Date 10/13/21 Record(s) scanned into pt's chart. Kina Daily RN 10/14/2021 11:05 AM Signed noted Allergies As of Date: 10/14/2021 (No Known Allergies) Date Reviewed: 07/22/2021 Reviewed by: Vickie Jose APRN.BEHAVIORAL THERAPY COORDINATOR - Fully Assessed Reason for Visit: Received Outside Medical Records [3576] Prescriptions as of 10/14/2021 - meloxicam (MOBIC) 7.5 mg tablet Take 1-2 tablets by mouth once daily. - albuterol HFA (PROVENTIL HFA, VENTOLIN HFA) 90 mcg/actuation inhaler INHALE 2 PUFFS BY MOUTH EVERY 4 HOURS - bisoprolol-hydroCHLO ROthiazide (ZIAC) 5-6.25 mg per tablet TAKE 1 TABLET BY MOUTH EVERY DAY IN THE MORNING - gabapentin (NEURONTIN) 100 mg capsule TAKE 1 CAPSULE BY MOUTH 3 TIMES A DAY NEEDED FOR PAIN Problem List As Of Date: 10/14/2021 (None) Encounter Status:Closed by KINA DAILY on 10/14/21 [facility] Kory 08-15-2021 [facility] Telephone (NIQ) BILLY ARGUETA ([id number]) 1965 F Date Time Provider Department 08/15/21 VICKIE JOSE During your visit today, we recorded the following information about you: Sheila Moreno Aerospace Engineer Officer [employer] 08/15/2021 3:52 PM Signed Received the following record(s) via [employer] Spine report Date 08/01/21 Record(s) scanned into pt's chart. Kina Daily RN 08/16/2021 11:41 AM Signed Neuro SPINE CARE COORDINATION QUICK NOTE Awaiting CD for review. Allergies As of Date: 08/15/2021 (No Known Allergies) Date Reviewed: 07/22/2021 Reviewed by: Vickie Jose, FOAM MACHINE OPERATOR.BEHAVIORAL THERAPY COORDINATOR - Fully Assessed Reason for Visit: Results [95] Prescriptions as of 08/16/2021 - albuterol HFA (PROVENTIL HFA, VENTOLIN HFA) 90 mcg/actuation inhaler INHALE 2 PUFFS BY MOUTH EVERY 4 HOURS - bisoprolol-hydroCHLO ROthiazide (ZIAC) 5-6.25 mg per tablet TAKE 1 TABLET BY MOUTH EVERY DAY IN THE MORNING - gabapentin (NEURONTIN) 100 mg capsule TAKE 1 CAPSULE BY MOUTH 3 TIMES A DAY NEEDED FOR PAIN - meloxicam (MOBIC) 7.5 mg tablet Take 1-2 tablets by mouth once daily. Problem List As Of Date: 08/15/2021 (None) Encounter Status:Closed by KINA DAILY on 08/16/21 Normal [facility] XR CSPINE MIN 4 VIEWSon 07-13 XR CSPINE MIN 4 VIEWS EXAMINATION: XR CSPINE MIN 4 VIEWS HISTORY: Neck pain COMPARISON: 01/07/2020 FINDINGS: BONES: Reversal of normal cervical lordosis. 3 mm retrolisthesis of C5 in relation to C4 and C6. Mild to moderate degenerative changes most significant at C5-C6 DISC SPACES: Moderate disc space narrowing C5-C6 PARASPINOUS: Negative. No paraspinous abnormality is seen. OTHER: Stable fixation screws through the mandible bilaterally IMPRESSION: Progression of degenerative changes most significant at C5-C6 Electronically authenticated by: KARL TREADWELL Date: 2021-08-01 20:59 Normal [facility] MRI Cervical Spine w/oon MRI Cervical Spine w/o HISTORY: Worsenin g chronic neck pain with bilateral radiation (left greater than right) PROCEDURE: Quitt.ch Signa HDXT 1.5. Sagittal T1, T2, STIR and axial T1 and T2 images through the cervical spine were performed without contrast administration. FINDINGS: Normal vertebral body heights. 2 mm retrolisthesis (C5 with respect to C4 and C6). No significant bone marrow edema. Mild inflammatory signal within the posterior end plates of C5/6 and left facet joints of C6/7. No vertebral body or posterior element fracture. Normal posterior fossa contents and spinal cord. C1/2 - C2/3: Normal. C3/4: Normal disc volume. Mild paracentral disc bulging. No spinal canal or neural foraminal stenosis. C4/5: Normal disc volume. 2 mm anterolisthesis contributes to uncovering of central bulging of disc material. Mild facet arthropathy. No spinal canal or neural foraminal stenosis. C5/6: Mild disc space loss. 2 mm retrolisthesis. Bilateral disc osteophyte complexes occupy both lateral recesses (right greater than left). Mild spinal canal stenosis, no deformity of the spinal cord (8 mm AP diameter of the spinal canal). Moderate right mid and exit neural foraminal zone stenosis. C6/7: Normal disc space heights. Bilateral lateral recess disc osteophyte complexes (left greater than right) with obliteration of the CSF surrounding the nondeformed spinal cord (6-7 mm AP spinal canal diameter). Moderate right and severe left lateral recess stenosis. Several bilateral neural foraminal stenosis (left greater than right) due to primarily uncovertebral hypertrophy and to a lesser extent facet arthropathy. C7/T1: Normal. IMPRESSION: Moderate to severe degrees of neural foraminal stenosis, greatest involvement left C6/7 with facet and regional soft tissue inflammatory changes. Report reported and signed by Vipin Castro on 07/08/2021 1501 Normal [facility] Covid-19 PCR (CVDTBH)on 05-14 SARS-CoV-2 (COVID-19) RNA CALIN+probe Ql (Unsp spec) Detected Critically abnormal NOT DETECTED [facility] Comment on above: Result Comment: This test is not yet approved or cleared by the [place] FDA. When there are no FDA-approved or cleared tests available, and other criteria are met, FDA can make tests available under an emergency access mechanism called an Emergency Use Authorization (EUA). The EUA for this test is supported by the [place] Piler of Health and Human Service's (HHS's) declaration that circumstances exist to justify the emergency use of in vitro diagnostics for the detection and/or diagnosis of the virus that causes COVID-19. This EUA will remain in effect (meaning this test can be used) for the duration of the COVID-19 declaration justifying emergency of IVDs, unless it is terminated or revoked by FDA (after which the test may no longer be used). Performed By: #### [facility] ####[facility] [address] [place], [place] [address]Ws. Isaiah Monzon PROF CHEM 8 (BAS METB)on Anion gap [Moles/Vol] 12.5 mmol/L Normal [facility] Comment on above: Performed By: #### B MP ####[facility] [address] [place] [address]Dr. Isaiah Monzon Calcium [Mass/Vol] 9.3 mg/dL Normal 8.4-10.2 [facility] Comment on above: Performed By: #### B MP ####[facility] [address] [place], [place] [address]Dr. Isaiah Monzon Chloride [Moles/Vol] 102 mmol/L Normal 98-107 [facility] Comment on above: Performed By: #### B MP ####[facility] [address] [place], [place] [address]Dr. Isaiah Monzon CO2 [Moles/Vol] 28.0 mmol/L Normal 22.0-30.0 [facility] Comment on above: Performed By: #### B MP ####[facility] [address] [place], [place] [address]Dr. Isaiah Monzon Creatinine [Mass/Vol] 0.77 mg/dL Normal 0.52-1.04 [facility] Comment on above: Performed By: #### B MP ####[facility] [address] [place], [place] [address]Dr. Isaiah Monzon EGFR-AF SINGAPOREAN >60 Normal >=60 [facility] Comment on above: Performed By: #### B MP ####[facility] [address] [place], [place] [address]Dr. Isaiah Monzon EGFR-NON AF SINGAPOREAN >60 Normal >=60 [facility] Comment on above: Performed By: #### B MP ####[facility] [address] [place], [place] [address]Dr. Isaiah Monzon Glucose [Mass/Vol] 96 mg/dL Normal 74-106 [facility] Comment on above: Performed By: #### B MP ####[facility] [address] [place], [place] [address]Dr. Isaiah Monzon Potassium [Moles/Vol] 4.5 mmol/L Normal 3.4-5.0 [facility] Comment on above: Performed By: #### B MP ####[facility] [address] [place] [address]Dr. Isaiah Monzon Sodium [Moles/Vol] 138 mmol/L Normal 137-145 [facility] Comment on above: Performed By: #### B MP ####[facility] [address] [place] [address]Dr. Isaiah Monzon Urea nitrogen [Mass/Vol] 8.0 mg/dL Normal 7.0-17.0 [facility] Comment on above: Performed By: #### B MP ####[facility] [address] [place], [place] [address]Dr. Isaiah Monzon Urea nitrogen/Creatinine [Mass ratio] 10.4 mg/mg Normal [facility] Comment on above: Performed By: #### B MP ####[facility] [address] [place], [place] [address]Dr. Loriaamir Monzon CARDIAC ALAYNA ADMITon 021 CK [Catalytic activity/Vol] 46 U/L Normal 30-135 [facility] Comment on above: Performed By: #### C KEV CUMMINS ####[facility] [address] [place], [place] [address]Dr. Isaiah Monzon CK.MB [Mass/Vol] ng/mL Normal <=2.37 [facility] Comment on above: Performed By: #### C MARIA G, BMP ####[facility] [address] [place], [place] [address]Dr. Loriaamir Nicolás HSTROP <4.0 Normal 4.0-35.5 [facility] Comment on above: Result Comment: CUT- OFF POINTS HAVE BEEN ESTABLISHED BASED ON THE FOURTH UNIVERSAL DEFINITIONS OF MYOCARDIAL INFARCTION. THE UPPER REFERENCE LIMIT (URL) OF TROPONIN, DEFINED THE 99TH PERCENTILE OF cTnI DISTRIBUTION IN A REFERENCE POPULATION, HAS BEEN CONFIRMED THE DECISION THRESHOLD FOR CO DIAGNOSIS. Performed By: #### C MARIA G, BMP ####[facility] [address] [place], [place] [address]Dr. Isaiah Monzon CASSANDRA 29.0 ng/mL Normal <=61.5 [facility] Comment on above: Performed By: #### C MARIA G, BMP ####[facility] [address] [place] [address]Dr. Isaiah Monzon CBC AUTO DIFFon 02-13-2021 BASO # 0.1 103/ul Normal 0.0-0.1 [facility] Comment on above: Performed By: #### C BC #### [facility] [address] [place] [address] [address] Isaiah Monzon Basophils/100 WBC (Bld) 0.6 % Normal 0.2-2.[address] [facility] Comment on above: Performed By: #### C BC #### [facility] [address] [place] [address] Dr. Isaiah Monzon EO # 0.1 103/ul Normal 0.0-0.7 [facility] Comment on above: Performed By: #### C BC #### [facility] [address] [place] [address] [address] Isaiah Monzon Eosinophils/100 WBC (Bld) 1.0 % Normal 0.9-7.0 [facility] Comment on above: Performed By: #### C BC #### [facility] [address] [place] [address] Dr. Isaiah Monzon Erythrocyte distribution width (RBC) [Ratio] 13.0 % Normal 11.0-15.0 [facility] Comment on above: Performed By: #### C BC #### [facility] [address] [place] [address] Dr. Isaiah Monzon Hematocrit (Bld) [Volume fraction] 37.6 % Normal 36.0-48.0 [facility] Comment on above: Performed By: #### C BC #### [facility] [address] [place] [address] Dr. Isaiah Monzon Hemoglobin (Bld) [Mass/Vol] 12.8 g/dL Normal 12.0-16.0 [facility] Comment on above: Performed By: #### C BC #### [facility] [address] [place] [address] Dr. Isaiah Monzon IG # 0.12 10e3/ul Critically high 0.00-0.03 [facility] Comment on above: Performed By: #### C BC #### [facility] [address] [place] [address] Dr. Isaiah Monzon IG % 1.4 % Critically high 0.0-0.5 [facility] Comment on above: Performed By: #### C BC #### [facility] [address] [place] [address] Dr. Isaiah Monzon LYMPH # 3.5 103/ul Normal 1.2-3.8 [facility] Comment on above: Performed By: #### C BC #### [facility] [address] [place] [address] Dr. Isaiah Monzon Lymphocytes/100 WBC (Bld) 40.2 % Normal 20.5-60.0 [facility] Comment on above: Performed By: #### C BC #### [facility] [address] [place] [address] Dr. Isaiah Monzon MANUAL DIFF REQ NO Normal [facility] Comment on above: Performed By: #### C BC #### [facility] [address] [place] [address] Dr. Isaiah Monzon MCH (RBC) [Entitic mass] 33.3 pg Normal 26.7-34.0 [facility] Comment on above: Performed By: #### C BC #### [facility] [address] [place] [address] Dr. Isaiah Monzon MCHC (RBC) [Mass/Vol] 34.0 g/dL Normal 29.9-35.2 [facility] Comment on above: Performed By: #### C BC #### [facility] [address] [place] [address] Dr. Isaiah Monzon MCV (RBC) [Entitic vol] 97.9 fL Normal 81.0-99.[address] [facility] Comment on above: Performed By: #### C BC #### [facility] [address] [place] [address] Dr. Isaiah Monzon MONO # 0.9 103/ul Critically high 0.3-0.8 [facility] Comment on above: Performed By: #### C BC #### [facility] [address] [place] [address] Dr. Isaiah Monzon Monocytes/100 WBC (Bld) 10.3 % Normal 1.7-12.[address] [facility] Comment on above: Performed By: #### C BC #### [facility] [address] [place] [address] Dr. Isaiah Monzon NEUT # 4.1 103/ul Normal 1.4-6.5 [facility] Comment on above: Performed By: #### C BC #### [facility] [address] [place] [address] Dr. Isaiah Monzon Neutrophils/100 WBC (Bld) 46.5 % Normal 43.0-75.0 [facility] Comment on above: Performed By: #### C BC #### [facility] [address] [place] [address] Dr. Isaiah Monzon Platelet mean volume (Bld) [Entitic vol] 9.8 fL Normal 9.5-13.5 [facility] Comment on above: Performed By: #### C BC #### [facility] [address] [place] [address] Dr. Isaiah Monozn PLT 287 103/ul Normal 150-450 [facility] Comment on above: Performed By: #### C BC #### [facility] [address] [place] [address] Dr. Isaiah Monzon RBC 3.84 106/ul Critically low 4.20-5.40 [facility] Comment on above: Performed By: #### C BC #### [facility] [address] [place] [address] Dr. Isaiah Monzon WBC 8.8 103/ul Normal 4.0-11.0 [facility] Comment on above: Performed By: #### C BC #### [facility] [address] [place] [address] NECK ST W CONon [address] W CON EXAMINATION: CT NECK ST W CON HISTORY: Pain in throat COMPARISON: None. TECHNIQUE: CT examination of the soft tissues of the neck following the administration of intravenous contrast. Coronal and sagittal reformations were performed. Dose reduction techniques were achieved by using automated exposure control and/or adjustment of mA and/or kV according to patient size and/or use of iterative reconstruction technique. FINDINGS: No focal fluid collection within the neck. The tonsils are normal. The epiglottis is normal. The larynx is normal. No inflammatory stranding. The bilateral parotid glands and submandibular glands are normal as is the thyroid gland. The vasculature within the neck opacifies normally. No lymphadenopathy. The bilateral globes are normal. No stranding within the post septal fat. Surgical screws within the mandible. Mucous retention cyst within the right maxillary sinus. Opacification of several right mastoid air cells inferiorly. The remainder the pneumatized portions of the skull are clear. Disc height loss and posterior disc/osteophyte complex at C5-C6 with mild narrowing of the spinal canal and moderate foraminal stenosis. IMPRESSION: 1. No abnormality identified within the neck. No abscess or lymphadenopathy. Electronically authenticated by: VIPIN COYLE Date: 2021-02-13 15:22 Normal [facility] CULTURE THROATon 02-13-2021 CULTURE THROAT Culture Observations: NORMAL RESPIRATORY TOM. Normal [facility] Comment on above: Performed By: #### S SCRN, THRTCX #### [facility] [address] [place] [address] [address] Isaiah Monzon Covid-19 PCR ([facility])on SARS-CoV-2 (COVID-19) RNA CALIN+probe Ql (Unsp spec) Not detected Normal NOT DETECTED [facility] Comment on above: Result Comment: This test is not yet approved or cleared by the [place] FDA. When there are no FDA-approved or cleared tests available, and other criteria are met, FDA can make tests available under an emergency access mechanism called an Emergency Use Authorization (EUA). The EUA for this test is supported by the Can Piler of Health and Human Service's (HHS's) declaration that circumstances exist to justify the emergency use of in vitro diagnostics for the detection and/or diagnosis of the virus that causes COVID-19. This EUA will remain in effect (meaning this test can be used) for the duration of the COVID-19 declaration justifying emergency of IVDs, unless it is terminated or revoked by FDA (after which the test may no longer be used). When diagnostic testing is negative, the possibility of a false negative should be considered in the context of a patient's recent exposures and the presence of clinical signs and symptoms consistent with SARS-CoV-2. Performed By: #### C VDMARIAHS, CVDTB ####[facility] [address] [place], [place] [address]Dr. Isaiah Monzon PROF CHEM 8 (BAS METB)on Anion gap [Moles/Vol] 11.4 mmol/L Normal [facility] Comment on above: Performed By: #### Jw CUMMINS, BMP ####[facility] [address] [place], [place] [address]Dr. Isaiah Monzon Calcium [Mass/Vol] 8.5 mg/dL Normal 8.4-10.2 [facility] Comment on above: Performed By: #### Jw CUMMINS, BMP ####[facility] [address] [place], [place] [address]Dr. Isaiah Monzon Chloride [Moles/Vol] 94 mmol/L Critically low 98-107 [facility] Comment on above: Performed By: #### Jw CUMMINS, BMP ####[facility] [address] [place], [place] [address]Dr. Isaiah Monzon CO2 [Moles/Vol] 26.9 mmol/L Normal 22.0-30.0 [facility] Comment on above: Performed By: #### Jw CUMMINS, BMP ####[facility] [address] [place], [place] [address]Dr. Isaiah Monzon Creatinine [Mass/Vol] 0.90 mg/dL Normal 0.52-1.04 [facility] Comment on above: Performed By: #### Jw CUMMINS, BMP ####[facility] [address] [place], [place] [address]Dr. Isaiah Monzon EGFR-AF SINGAPOREAN >60 Normal >=60 [facility] Comment on above: Performed By: #### Jw CUMMINS, BMP ####[facility] [address] [place], [place] [address]Tr. Isaiah Monzon EGFR-NON AF SINGAPOREAN >60 Normal >=60 [facility] Comment on above: Performed By: #### C MARIA G, BMP ####[facility] [address] [place], [place] [address]Um. Isaiah Monzon Glucose [Mass/Vol] 104 mg/dL Normal 74-106 [facility] Comment on above: Performed By: #### C MARIA G, BMP ####[facility] [address] [place] [address]Dr. Isaiah Monzon Potassium [Moles/Vol] 3.3 mmol/L Critically low 3.4-5.0 [facility] Comment on above: Performed By: #### C MARIA G, BMP ####[facility] [address] [place] [address]Dr. Isaiah Monzon Sodium [Moles/Vol] 129 mmol/L Critically low 137-145 [facility] Comment on above: Performed By: #### C MARIA G, BMP ####[facility] [address] [place] [address]Dr. Isaiah Monzon Urea nitrogen [Mass/Vol] 12.0 mg/dL Normal 7.0-17.0 [facility] Comment on above: Performed By: #### C MARIA G, BMP ####[facility] [address] [place] [address]Dr. Isaiah Monzon Urea nitrogen/Creatinine [Mass ratio] 13.3 mg/mg Normal [facility] Comment on above: Performed By: #### C MARIA G, BMP ####[facility] [address] [place] [id number]. Isaiah Monzon STREPT SCREENon 02-13-2021 STREP SCREEN A Negative Normal NEGATIVE [facility] Comment on above: Performed By: #### S SCRN, THRTCX #### [facility] [address] [place], [place] [address] Dr. Isaiah Monzon SYMPTOMATIC COVID-19 ANTIGEN on 02-13-2021 EUA Statement SEE BELOW Normal [facility] Comment on above: Result Comment: This test has not been FDA cleared or approved, but has been authorized by the FDA under an Emergency Use Authorization (EUA) for use by authorized laboratories certified under CLIA that meet the requirements to perform moderate or high complexity testing. This test has been authorized only for the detection of proteins from SARS-CoV-2, not for any other viruses or pathogens. The emergency use of this test is authorized for the duration of the declaration that circumstances exist justifying the authorization of emergency use of in vitro diagnostic tests for detection and/or diagnosis of Covid-19 under section 564(b)(1) of the Act, 21 U.S.C. 360bbb-3(b)(1), unless the declaration is terminated or authorization is revoked sooner. Performed By: #### C CARLENE, CVDTB #### [facility] [address] [place] [address] Dr. Isaiah Monzon SARS-CoV-2 (COVID-19) RNA CALIN+probe Ql (Unsp spec) Negative Normal NEGATIVE [facility] Comment on above: Result Comment: CONF IRMATION BY PCR PENDING PER CDC GUIDELINES/ SYMPTOMATIC PATIENT. Performed By: #### C SAMYS, CVDTB #### [facility] [address] [place] [address] Dr. Isaiah Monzon XR CHEST 2 Von 02-13-2021 XR CHEST 2 V EXAM: XR CHEST 2 V DATE: 02/13/2021 1:51 PM EDT INDICATION: Chest pain COMPARISON: Chest radiograph 05/03/2020 TECHNIQUE: Frontal and lateral radiographs of the chest FINDINGS: Lines, tubes and hardware: None. Lungs and pleura: Unchanged scattered linear opacities in lung bases, most compatible with subsegmental atelectasis and/or scarring. No focal consolidation. No pleural effusions. No pneumothorax is identified. Heart and mediastinum: Normal cardiomediastinal silhouette. Bones and soft tissues: No acute abnormality. IMPRESSION: 1. No acute cardiopulmonary findings. Electronically authenticated by: REJI KHANNA Date: 2021-02-13 14:37 Normal [facility] CBC AUTO DIFFon 01-22-2021 BASO # 0.0 103/ul Normal 0.0-0.1 [facility] Comment on above: Performed By: #### C BC ####[facility] [address] [place], [place] [address]Vvomia Lucy Basophils/100 WBC (Bld) 0.6 % Normal 0.2-2.[address] [facility] Comment on above: Performed By: #### C BC ####[facility] [address] [place] [id number] Lucy EO # 0.1 103/ul Normal 0.0-0.7 [facility] Comment on above: Performed By: #### C BC ####[facility] [address] [place] [address]Cygnvp Lucy Eosinophils/100 WBC (Bld) 1.4 % Normal 0.9-7.0 [facility] Comment on above: Performed By: #### C BC ####[facility] [address] [place], [place] [id number] Lucy Erythrocyte distribution width (RBC) [Ratio] 12.4 % Normal 11.0-15.0 [facility] Comment on above: Performed By: #### C BC ####[facility] [address] [place] [address]Vgmieu Lucy Hematocrit (Bld) [Volume fraction] 39.1 % Normal 36.0-48.0 [facility] Comment on above: Performed By: #### C BC ####[facility] [address] [place] [address]Mkcwjd Lucy Hemoglobin (Bld) [Mass/Vol] 13.4 g/dL Normal 12.0-16.0 [facility] Comment on above: Performed By: #### C BC ####[facility] [address] [place] [address]Bkpbgk Lucy IG # 0.02 10e3/ul Normal 0.00-0.03 [facility] Comment on above: Performed By: #### C BC ####[facility] [address] [place], [place] [address]Gerken Lucy IG % 0.4 % Normal 0.0-0.5 [facility] Comment on above: Performed By: #### C BC ####[facility] [address] [place], [place] [address]Pvglbi Lucy LYMPH # 2.2 103/ul Normal 1.2-3.8 [facility] Comment on above: Performed By: #### C BC ####[facility] [address] [place], [place] [address]Izucwd Lucy Lymphocytes/100 WBC (Bld) 45.1 % Normal 20.5-60.0 [facility] Comment on above: Performed By: #### C BC ####[facility] [address] [place], [place] [address]Tnoxej Lucy MANUAL DIFF REQ NO Normal [facility] Comment on above: Performed By: #### C BC ####[facility] [address] [place] [address]Gkmpxh Lucy MCH (RBC) [Entitic mass] 33.1 pg Normal 26.7-34.0 [facility] Comment on above: Performed By: #### C BC ####[facility] [address] [place] [address]Rcrnhx Lucy MCHC (RBC) [Mass/Vol] 34.3 g/dL Normal 29.9-35.2 [facility] Comment on above: Performed By: #### C BC ####[facility] [address] [place] [address]Zeccen Lucy MCV (RBC) [Entitic vol] 96.5 fL Normal 81.0-99.[address] [facility] Comment on above: Performed By: #### C BC ####[facility] [address] [place] [address]Bxcfoy Lucy MONO # 0.5 103/ul Normal 0.3-0.8 [facility] Comment on above: Performed By: #### C BC ####[facility] [address] [place] [address]Mljxpa Lucy Monocytes/100 WBC (Bld) 11.1 % Normal 1.7-12.[address] [facility] Comment on above: Performed By: #### C BC ####[facility] [address] [place], [place] [address]Zdffhy Lucy NEUT # 2.0 103/ul Normal 1.4-6.5 [facility] Comment on above: Performed By: #### C BC ####[facility] [address] [place], [place] [address]Psqvxz Lucy Neutrophils/100 WBC (Bld) 41.4 % Critically low 43.0-75.0 [facility] Comment on above: Performed By: #### C BC ####[facility] [address] [place], [place] [address]Hjcrao Lucy Platelet mean volume (Bld) [Entitic vol] 9.7 fL Normal 9.5-13.5 [facility] Comment on above: Performed By: #### C BC ####[facility] [address] [place], [place] [address]Ciarxu Lucy PLT 290 103/ul Normal 150-450 [facility] Comment on above: Performed By: #### C BC ####[facility] [address] [place], [place] [address]Tjmjwm Lucy RBC 4.05 106/ul Critically low 4.20-5.40 [facility] Comment on above: Performed By: #### C BC ####[facility] [address] [place], [place] [address]Qtgkaq Lucy WBC 4.9 103/ul Normal 4.0-11.0 [facility] Comment on above: Performed By: #### C BC ####[facility] [address] [place], [place] [address]Ydejic Lucy CRPon 01-22-2021 CRP [Mass/Vol] mg/L Normal <=1.0 [facility] Comment on above: Performed By: #### C MP, CRP, TSH #### [facility] [address] [place], [place] [address] Ana Pritchetten PROF 14(COMP METB)on 021 Albumin [Mass/Vol] 4.3 g/dL Normal 3.5-5.0 [facility] Comment on above: Performed By: #### C MP, CRP, TSH #### [facility] [address] [place], [place] [address] Ana Lucy Albumin/Globulin [Mass ratio] 1.3 {ratio} Normal [facility] Comment on above: Performed By: #### C MP, CRP, TSH #### [facility] [address] [place], [place] [address] Ana Lucy ALP [Catalytic activity/Vol] 73 U/L Normal 38-126 [facility] Comment on above: Performed By: #### C MP, CRP, TSH #### [facility] [address] [place], [place] [address] Ana Lucy ALT [Catalytic activity/Vol] 25 U/L Normal 9-52 [facility] Comment on above: Performed By: #### C MP, CRP, TSH #### [facility] [address] [place], [place] [address] Ana Lucy Anion gap [Moles/Vol] 11.7 mmol/L Normal [facility] Comment on above: Performed By: #### C MP, CRP, TSH #### [facility] [address] [place], [place] [address] Ana Lucy AST [Catalytic activity/Vol] 19 U/L Normal 14-36 [facility] Comment on above: Performed By: #### C MP, CRP, TSH #### [facility] [address] [place], [place] [address] Ana Lucy Bilirubin [Mass/Vol] 0.9 mg/dL Normal 0.2-1.3 [facility] Comment on above: Performed By: #### C MP, CRP, TSH #### [facility] [address] [place], [place] [address] Ana Lucy Calcium [Mass/Vol] 9.1 mg/dL Normal 8.4-10.2 [facility] Comment on above: Performed By: #### C MP, CRP, TSH #### [facility] [address] [place], [place] [address] Ana Lucy Chloride [Moles/Vol] 99 mmol/L Normal 98-107 [facility] Comment on above: Performed By: #### C MP, CRP, TSH #### [facility] [address] [place], [place] [address] Ana Lucy CO2 [Moles/Vol] 27.5 mmol/L Normal 22.0-30.0 [facility] Comment on above: Performed By: #### C MP, CRP, TSH #### [facility] [address] [place] [id number] Ana Lucy Creatinine [Mass/Vol] 0.84 mg/dL Normal 0.52-1.04 [facility] Comment on above: Performed By: #### C MP, CRP, TSH #### [facility] [address] [place] [id number] Ana Lucy EGFR-AF SINGAPOREAN >60 Normal >=60 [facility] Comment on above: Performed By: #### C MP, CRP, TSH #### [facility] [address] [place] [address] Ana Lucy EGFR-NON AF SINGAPOREAN >60 Normal >=60 [facility] Comment on above: Performed By: #### C MP, CRP, TSH #### [facility] [address] [place] [id number] Ana Lucy Globulin (S) [Mass/Vol] 3.2 g/dL Normal [facility] Comment on above: Performed By: #### C MP, CRP, TSH #### [facility] [address] [place] [id number] Ana Lucy Glucose [Mass/Vol] 118 mg/dL Critically high 74-[address] [facility] Comment on above: Performed By: #### C MP, CRP, TSH #### [facility] [address] [place] [id number] Ana Lucy Potassium [Moles/Vol] 4.2 mmol/L Normal 3.4-5.0 [facility] Comment on above: Performed By: #### C MP, CRP, TSH #### [facility] [address] [place] [id number] Ana Lucy Protein [Mass/Vol] 7.5 g/dL Normal 6.1-8.2 [facility] Comment on above: Performed By: #### C MP, CRP, TSH #### [facility] [address] [place] [address] Ana Ayala Sodium [Moles/Vol] 134 mmol/L Critically low 137-145 [facility] Comment on above: Performed By: #### C MP, CRP, TSH #### [facility] [address] [place] [address] Ana Lucy Urea nitrogen [Mass/Vol] 9.0 mg/dL Normal 7.0-17.0 [facility] Comment on above: Performed By: #### C MP, CRP, TSH #### [facility] [address] [place] [address] Ana Ayala Urea nitrogen/Creatinine [Mass ratio] 10.7 mg/mg Normal [facility] Comment on above: Performed By: #### C MP, CRP, TSH #### [facility] [address] [place] [address] Ana Ayala TSHon 01-22-2021 TSH 1.096 uIU/mL Normal 0.470-4.680 [facility] Comment on above: Performed By: #### C MP, CRP, TSH #### [facility] [address] [place] [address] Ana Ayala TSH RANGE SEE BELOW Normal [facility] Comment on above: Result Comment: <0.3 4 UIU/ml HYPERTHYROID 0.34-5.60 UIU/ml EUTHYROID >5.60 UIU/ml HYPOTHYROID Performed By: #### C MP, CRP, TSH #### [facility] [address] [place] [address] Ana Lucy Initial Visit (Rheumatology) on 08-18-2019 Initial Visit (Rheumatology) Patient Discussion/Summary We will obtain labs We will call you results. Provider Impressions 54-year-old female with history of chronic fatigue ,depression and anxiety presented with fatigue, intermittent chest pain, weakness and tingling in the extremities. Available labs reviewed and noted to have positive ROBB with negative anti-dsDNA, anti-Samuels, anti-SSA, anti-SSB and anti-ASSOCIATE [employer]ESSOR [employer]OL[employer]. No red flag by history however we will repeat ROBB to look for the titer. Obtain labs to look for other etiologies of fatigue. One can consider a trial of Cymbalta given the history of anxiety and depression and chronic fatigue syndrome. This note was partially generated using the [employer] Voice recognition system. There may be some incorrect wording, spelling and/or spelling errors or punctuation errors that were not corrected prior to committing the note to the medical record. Chief Complaint An interactive audio and video telecommunication system which permits real time communications between the patient (at the originating site) and provider (at the distant site) was utilized to provide this telehealth service. Verbal consent was requested and obtained from BILLY ARGUETA on this date, 08/18/2019 03:00 PM , for a telehealth visit. positive ROBB History of Present Pejjiul34-[id number]-oes female with history of chronic fatigue , Depression and anxiety referred by Khai Vega in consultation for positive ROBB. She reports intermittent numbness, tingling and weakness in her hands and feet for the past 1 year. She reports fatigue and tiredness most of the time. She reports intermittent chest pain with fluttering. Symptoms started 2 years ago. She has had negative stress test. Reason labs showed positive ROBB. ( no titer). 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 Sedimentation rate 2. CRP less than 0.5. CMP within normal limits. CBC obtained however results are not available. Patient was diagnosed with chronic fatigue syndrome number of years ago. She has had positive EBV serology. She got better with exercise. She has history of anxiety and depression treated with Zoloft for 30 years. It was discontinued in 2010. She has no history of fever, chills, weight loss, malar rash, alopecia, sicca symptoms, iritis, uveitis, Raynaud's phenomenon, gross hematuria, joint pain and swelling with morning stiffness and back pain. Review of Systems All other systems have been reviewed and are negative for complaint. Past Medical History Problems History of anxiety (V11.8) (Z86.59) History of depression (V11.8) (Z86.59) Surgical History Problems History of section History of Jaw surgery History of Lumbar vertebral fusion Family History Mother Family history of aortic aneurysm (V17.49) (Z82.49) Father Family history of aortic aneurysm (V17.49) (Z82.49) Family history of diabetes mellitus (V18.0) (Z83.3) Sister Family history of Lupus Social History Problems Former smoker (V15.82) (Z87.891) Occasional alcohol use Allergies Medication No Known Drug Allergies Recorded By: Cassy López; 08/18/2019 2:54:15 PM Current Meds Medication NameInstruction No Reported Medications Signatures Electronically signed by : Chi Rayo MD; Aug 18 2019 3:40PM EST (Author) Normal [facility] Vital Signs Date Time Vital Sign Value Performing Clinician Facility 09-21-2024 20:26-0400 Diastolic blood pressure 90 mm[Hg] Tara Vega [employer] [facility] [employer] Work Phone: [facility] 09-21-2024 20:26-0400 Heart rate 65 /min Tara Vega [employer] Work Phone: [facility] 09-21-2024 20:26-0400 Respiratory rate 18 /min Tara Vega [employer] Work Phone: [facility] 09-21-2024 20:26-0400 SaO2% (BldA) [Mass fraction] 97 % Tara Vega [employer] Work Phone: [facility] 09-21-2024 20:26-0400 Systolic blood pressure 193 mm[Hg] Tara Vega [employer] Work Phone: [facility] 09-21-2024 15:52-0400 Body temperature 98.2 [degF] Tara Vega [employer] Work Phone: [facility] 09-21-2024 15:50-0400 Body height 172.72 cm Tara Vega [employer] Work Phone: [facility] 09-21-2024 15:50-0400 Body weight 62.59 kg Tara Vega [employer] Work Phone: [facility] 09-21-2024 11:20-0400 Body height 172.72 cm [facility] 09-21-2024 11:20-0400 Body mass index (BMI) [Ratio] 21.2 kg/m2 [facility] 09-21-2024 11:20-0400 Body temperature 98.1 [degF] [facility] 09-21-2024 11:20-0400 Body weight 63.27 kg [facility] 09-21-2024 11:20-0400 Diastolic blood pressure 89 mm[Hg] [facility] 09-21-2024 11:20-0400 Heart rate 68 /min [facility] 09-21-2024 11:20-0400 Respiratory rate 18 /min [facility] 09-21-2024 11:20-0400 SaO2% (BldA) [Mass fraction] 98 % [facility] 09-21-2024 11:20-0400 Systolic blood pressure 171 mm[Hg] [facility] 03-20-2024 13:11-0500 Body height 175.26 cm Tara Vega [employer] Work Phone: [facility] 03-20-2024 13:11-0500 Body mass index (BMI) [Ratio] 21.7 kg/m2 Tara Vega [employer] Work Phone: [facility] 03-20-2024 13:11-0500 Body weight 66.67 kg Tara Vega [employer] Work Phone: [facility] 05-10-2023 08:20-0500 Heart rate 48 /min Gustavo Cadet [facility] 05-10-2023 08:20-0500 SaO2% (BldA) [Mass fraction] 100 % Gustavo Cadet [facility] 05-10-2023 08:20-0500 Body temperature 97.7 [degF] Gustavo Cadet [facility] 05-10-2023 08:19-0500 Diastolic blood pressure 80 mm[Hg] Gustavo Zahler [facility] 05-10-2023 08:19-0500 Mean blood pressure 106 mm[Hg] Gustavo Lighthler [facility] 05-10-2023 08:19-0500 Systolic blood pressure 156 mm[Hg] Gustavo Zahler [facility] 05-10-2023 08:19-0500 Blood Pressure Location Gustavo Zahler [facility] 05-10-2023 08:12-0500 Blood Pressure Location Gustavo Lighthler [facility] 05-10-2023 08:12-0500 Diastolic blood pressure 66 mm[Hg] Gustavo Zahler [facility] 05-10-2023 08:12-0500 Heart rate 54 /min Gustavo Zahler [facility] 05-10-2023 08:12-0500 SaO2% (BldA) [Mass fraction] 99 % Gustavo Zahler [facility] 05-10-2023 08:12-0500 Systolic blood pressure 134 mm[Hg] Gustavo Zahler [facility] 05-10-2023 07:46-0500 Blood Pressure Location Gustavo Zahler [facility] 05-10-2023 07:46-0500 Diastolic blood pressure 64 mm[Hg] Gustavo Zahler [facility] 05-10-2023 07:46-0500 Heart rate 76 /min Gustavo Zahler [facility] 05-10-2023 07:46-0500 SaO2% (BldA) [Mass fraction] 98 % Gustavo Zahler [facility] 05-10-2023 07:46-0500 Systolic blood pressure 128 mm[Hg] Gustavo Zahler [facility] 05-10-2023 06:05-0500 Mean blood pressure 100 mm[Hg] Gustavo Zahler [facility] 05-10-2023 06:03-0500 Respiratory rate 20 /min Gustavo Nadegehler [facility] 05-10-2023 06:03-0500 Mean blood pressure 112 mm[Hg] Gustavo Zahler [facility] 05-10-2023 06:03-0500 Body temperature 98.06 [degF] Gustavo Nadegehler [facility] 04-12-2023 08:59-0500 Heart rate 52 /min Gustavo Nadegehler [facility] 04-12-2023 08:59-0500 SaO2% (BldA) [Mass fraction] 99 % Gustavo Zahler [facility] 04-12-2023 08:59-0500 Blood Pressure Location Gustavo Jasoner [facility] 04-12-2023 08:59-0500 Diastolic blood pressure 65 mm[Hg] Gustavo Zahler [facility] 04-12-2023 08:59-0500 Mean blood pressure 93 mm[Hg] Gustavo Zahler [facility] 04-12-2023 08:59-0500 Systolic blood pressure 147 mm[Hg] Gustavo Zahler [facility] 04-12-2023 08:58-0500 Respiratory rate 18 /min Gustavo Lighthler [facility] 04-12-2023 08:51-0500 Blood Pressure Location Gustavo Lighthler [facility] 04-12-2023 08:51-0500 Diastolic blood pressure 66 mm[Hg] Gustavo Zahler [facility] 04-12-2023 08:51-0500 Heart rate 58 /min Gustavo Zahler [facility] 04-12-2023 08:51-0500 SaO2% (BldA) [Mass fraction] 98 % Gustavo Zahler [facility] 04-12-2023 08:51-0500 Systolic blood pressure 130 mm[Hg] Gustavo Zahler [facility] 04-12-2023 08:29-0500 Blood Pressure Location Gustavo Cadet [facility] 04-12-2023 08:29-0500 Diastolic blood pressure 72 mm[Hg] Gustavo Zahler [facility] 04-12-2023 08:29-0500 Heart rate 50 /min Gustavo Zahler [facility] 04-12-2023 08:29-0500 SaO2% (BldA) [Mass fraction] 99 % Gustavo Zahler [facility] 04-12-2023 08:29-0500 Systolic blood pressure 135 mm[Hg] Gustavo Zahler [facility] 04-12-2023 06:39-0500 Mean blood pressure 92 mm[Hg] Gustavo Nadegehler [facility] 04-12-2023 06:37-0500 Respiratory rate 16 /min Gustavo Cadet [facility] 04-12-2023 06:37-0500 Body temperature 97.34 [degF] Gustavo Cadet [facility] 04-12-2023 06:36-0500 Mean blood pressure 103 mm[Hg] Gustavo Cadet [facility] 11-30-2022 16:45-0400 Body height 175.26 cm Nasrin Dang Other [facility] Other 11-30-2022 16:45-0400 Body mass index (BMI) [Ratio] 22.95 kg/m2 Nasrin Dang Other [facility] Other 11-30-2022 16:45-0400 Body temperature 97.7 [degF] Nasrin Callowayler Other [facility] Other 11-30-2022 16:45-0400 Body weight 70.49 kg Nasrin Callowayler Other [facility] Other 11-30-2022 16:45-0400 Diastolic blood pressure 75 mm[Hg] Nasrin Dang Other [facility] Other 11-30-2022 16:45-0400 SaO2% (BldA) [Mass fraction] 100 % Nasrin Dang Other [facility] Other 11-30-2022 16:45-0400 Systolic blood pressure 151 mm[Hg] Nasrin Callowayler Other [facility] Other 10-08-2022 09:15-0400 Body height 175.26 cm Shani Nieto Other [facility] Other 10-08-2022 09:15-0400 Body mass index (BMI) [Ratio] 22.56 kg/m2 Shani Nieto Other [facility] Other 10-08-2022 09:15-0400 Body temperature 98 [degF] Shani Nieto Other [facility] Other 10-08-2022 09:15-0400 Body weight 69.31 kg Shani Avitiamond Other [facility] Other 10-08-2022 09:15-0400 Respiratory rate 18 /min Shani Nieto Other [facility] Other 10-08-2022 09:15-0400 SaO2% (BldA) [Mass fraction] 99 % Shani Nieto Other [facility] Other Encounters Encounter Date Encounter Type Care Provider Facility Start: 09-25-2024 End: 09-25-2024 ambulatory Tara L Vega Facility:[facility] Start: 09-25-2024 ambulatory Tara L Vega Facility: CD:[id number] Start: 09-21-2024 End: 09-24-2024 Evaluation and management of inpatient Essam Elashi Facility:[facility] Start: 09-21-2024 End: 09-21-2024 ambulatory [facility] Work Phone: Start: 09-21-2024 End: 09-21-2024 Patient encounter procedure [facility] Work Phone: Start: 06-06-2024 End: 06-06-2024 ambulatory Tara L Vega Facility:[facility] Start: 03-25-2024 End: 03-25-2024 Patient encounter procedure Tara Vega [employer] [facility] [employer] Work Phone: [facility] [place] Work Phone: Start: 03-25-2024 End: 03-25-2024 ambulatory Tara Ferrari [employer] [employer] Work Phone: [facility] Work Phone: Start: 03-20-2024 End: 03-20-2024 Patient encounter procedure Tara Wooab [employer] Work Phone: [facility] Work Phone: Start: 03-11-2024 End: 03-11-2024 ambulatory MARY MERCADO Facility:[facility] Start: 02-28-2024 End: 02-28-2024 ambulatory Tara L Vega Facility:[facility] Start: 05-11-2023 End: 05-11-2023 ambulatory GUTSAVO CADET Not Available Start: 05-10-2023 End: 05-10-2023 Admission to same day surgery center Gustavo Cadet [facility] Start: 04-12-2023 End: 04-12-2023 Admission to same day surgery center Gustavo Cadet [facility] Start: 01-05-2023 End: 01-05-2023 Lab Drop off Tara L Vega [facility] Start: 11-30-2022 End: 11-30-2022 ambulatory Nasrin Dang Other [facility] Other Start: 11-30-2022 Office outpatient visit 25 minutes Nasrin Dang [facility] Start: 10-08-2022 End: 10-08-2022 ambulatory Shani Nieto Other [facility] Other Start: 10-08-2022 Office outpatient visit 15 minutes Shani Emilia [facility] Start: 10-14-2021 Telephone encounter Vickie telles FOAM MACHINE OPERATOR.BEHAVIORAL THERAPY COORDINATOR Work Phone: Neurology Comment on above: Received Outside Med ical Records Start: 09-08-2021 ambulatory Vickie Jose APRN.BEHAVIORAL THERAPY COORDINATOR Work Phone: [facility] Start: 09-08-2021 Follow-up encounter Vickie telles APRN.BEHAVIORAL THERAPY COORDINATOR Work Phone: [facility] Comment on above: follow-up of August 132021 message Start: 09-01-2021 ambulatory Vickie Jose APRN.BEHAVIORAL THERAPY COORDINATOR Work Phone: [facility] Comment on above: PT, medicine & injec tion Start: 08-15-2021 Telephone encounter Vickie telles APRN.BEHAVIORAL THERAPY COORDINATOR Work Phone: Neurology Comment on above: Results Start: 08-04-2021 End: 10-14-[address] DOCTOR BRUNER Facility:[facility] Start: 08-01-2021 End: 08-02-[address] DOCTOR BRUNER Facility:[facility] Start: 05-24-2021 End: 05-24-[address] DIDIER RIDLEY Facility:[facility] Start: 03-24-2021 End: 03-25-[address] DIDIER RIDLEY Facility:[facility] Start: 02-13-2021 End: 02-13-2021 ambulatory AR VENTURA Facility:[facility] Start: 01-22-2021 End: 01-23-[address] DIDIER RIDLEY Facility:[facility] Procedures Date Procedure Procedure Detail Performing Clinician Start: 09-21-2024 CT of head without contrast Tara Ferrari PRESS SET UP-C Work Phone: Start: 03-25-2024 X-ray of cervical spine Tara LUGO Work Phone: Start: 05-10-2023 Cataract extraction and insertion of intraocular lens Gustavo Cadet Start: 04-12-2023 Intraocular lens imp lant (physical object) Gustavo Gomezdayday Start: 07-21-2021 Adult depression scr eening assessment Vickie Jose FOAM MACHINE OPERATOR.BEHAVIORAL THERAPY COORDINATOR Work Phone: Back fusion Tara Ferrari Comment on above: lumbar herniated dis c fused 1994 section Tara Ferrari Comment on above: X2 Colonoscopy Tara Ferrari Excision of cyst of ovary Peyton Bonds Comment on above: (2) 1985 Surgery (qualifier value) Peyton Bonds Comment on above: jaw 1991 Plan of Treatment Date Care Activity Detail Author Start: 10-01-2024 ambulatory Ambulatory Facility:[facility] Start: 10-01-2024 [facility] Start: 09-30-2024 [facility] Start: 09-29-2024 [facility] Start: 09-28-2024 [facility] Start: 09-27-2024 [facility] Start: 09-26-2024 [facility] Start: 09-25-2024 [facility] Start: 09-24-2024 [facility] Start: 09-23-2024 [facility] Start: 09-22-2024 [facility] Start: 09-21-2024 End: 09-21-2024 [facility] Start: 09-21-2024 Referral to individual small group instructor [facility] Start: 09-21-2024 Hospital admission [facility] Start: 03-20-2024 Patient referral [facility] Work Phone: Start: 07-21-2022 Adult depression screening assessment DEPRESSION SCREENING [facility] Start: 01-12-2022 Influenza vaccination [facility] Start: 2015 SHINGRIX VACCINE (1 of 2) SHINGRIX VACCINE (1 of 2) [facility] Start: 2010 COLOGUARD (FIT-DNA) COLOGUARD (FIT-DNA) [facility] Start: 2010 Colonoscopy COLONOSCOPY [facility] Start: 2010 COLORECTAL CANCER SCREENING COLORECTAL CANCER SCREENING [facility] Start: [address] COLONOGRAPHY [facility] Start: 2010 DIABETES SCREEN DIABETES SCREEN [facility] Start: 2010 FECAL OCCULT BLOOD FECAL OCCULT BLOOD [facility] Start: 2010 LIPID SCREEN LIPID SCREEN [facility] Start: 2010 SIGMOIDOSCOPY SIGMOIDOSCOPY [facility] Start: 2005 Mammography MAMMOGRAM [facility] Start: 1995 HPV TESTING HPV TESTING [facility] Start: 1986 PAP TESTING PAP TESTING [facility] Start: 02-23-1984 Urine microalbumin profile DTAP,TDAP,TD (1 - Tdap) [facility] Start: 1983 HEPATITIS C SCREENING HEPATITIS C SCREENING [facility] Start: 1983 HIV SCREENING HIV SCREENING [facility] Start: 1970 COVID-19 VACCINE (#1) COVID-19 VACCINE (#1) [facility] Start: 1970 COVID-19 VACCINE (1) COVID-19 VACCINE (1) [facility] Patient referral [facility] Work Phone: [facility] Payers Date Payer Category Payer Self-pay 2020 Unknown [id number] 2020 Unknown [id number] 2014 Unknown [facility] [id number] 2014-Present [phone] [address] [place] [address] O [id number] 1965 Unknown [id number] [id number]. 2.593 1965 Unknown [id number] 2.16.840.1.718849.3.579. 2.593 1965 Unknown [id number] 2.16.840.1.420660.3.579. 2.593 1965 Unknown [id number] 2.16.840.1.240262.3.579. 2.593 1965 Unknown [id number] 2.16.840.1.048473.3.579. 2.593 1965 Unknown [id number] 2.16.840.1.713589.3.579. 2.593 1965 Unknown [id number] 2.16.840.1.860956.3.579. 2.1259 1965 Unknown [id number] 2.16.840.1.242629.3.579. 2.727 1965 Unknown [id number] 2.16840.1.270945.3.579. 2.727 1965 Unknown [id number] 2.16840.1.273733.3.579. 2.727 1965 Unknown [id number] 2.840.1.054443.3.579. 2.727 1965 Unknown [id number] 2.16.840.1.856310.3.579. 2.727 1959 Private Health Insurance [id number] 1959 Unknown [id number] 1959 Unknown [id number] Unknown [id number] [id number] Unknown [id number] Unknown [id number] 2.840.1.301491.3.579. 2.531 Unknown [id number] 2.16840.1.167303.3.579. 2.531 Social History Date Type Detail Facility Tobacco smoking status MEIS Tobacco smoking consumption unknown [facility] Start: 1965 Sex Assigned At Not on file C [facility] Start: 07-11-2021 End: 07-21-2021 Exposure to SARS-CoV-2 (event) Not sure [facility] Work Phone: Sex Assigned At [facility] Start: 01-04-2023 End: 09-21-2024 Tobacco smoking status Ex-smoker (finding) [facility] Comment on above: Pt quit 8 years ago had smokes over 30 years Tobacco smoking status Never [facility] Comment on above: Pt quit 8 years ago had smokes over 30 years Start: 06-21-2012 Tobacco smoking status NHIS Smoker (finding) [facility] Start: 03-26-2024 Sex Patient sex un known (finding) [facility] Start: 1965 Sex Assigned At Female F [facility] Start: 09-21-2024 End: 09-21-2024 Sex Female (finding) [facility] Medical Equipment Procedure Code Equipment Code Equipment Origin al Text Equipment Identifier Dates CATARACT EXTRACT ION W/ INTRAOCULAR LENS Zahler DO, Gustavo 04/12/23 Unknown Eye L FDA Start: 04-12-2023 CATARACT EXTRACT ION W/ INTRAOCULAR LENS Nadegehler DO, Gustavo 04/12/23 Unknown Eye L FDA Start: 04-12-2023 CATARACT EXTRACT ION W/ INTRAOCULAR LENS Nadegehler DO, Gustavo 05/10/23 Unknown Eye R FDA Start: 05-10-2023 Functional Status Date Assessment Result Facility 05-10-2023 Functional Status N/A [facility] 03-28-2023 Functional Status N/A [facility] Clinical Notes 07-18-2021 to 09-21-2024 Note Date & Type Note Facility 09-21-2024 History and physi nik note Note Date/Time September 21, 2024 6:25pm [facility] [address] [place] [address] Hospitalist H&P Signed Patient: Billy Argueta MR#: [id number] : 1965 Acct:[id number] Age/Sex: 59 / F Adm Date: 5 Loc: ER Room: Type: [facility] ER Attending Dr: Copies to: MD Rosalva Watkins, DO Tara Ferrari BEHAVIORAL THERAPY COORDINATOR~ HPI DATE OF EXAMINATION: 09/21/24 CHIEF COMPLAINT: Dizziness HISTORY OF PRESENT ILLNESS: This is a 59-year-old female with significant past medical history of hypertension,, allergic rhinitis who presented to [facility] ED for concern for lightheadedness. She mentions that she went to [facility] today and was told that she has effusion in her ears and was found to be hypertensive there and was sent home. She denies any ear ache or discharge fromthe ear. Denies any fever or chills. Mentions that she drinks alcohol almost every day around 1-2 beers. Does not smoke currently. Denies any cough sore throat or runny nose. In the ED she was found to be hypertensive. Lab work shows normal WBC, hemoglobin 13.1, sodium 118 with potassium 3.7 and chloride was 83. Normal RFT and LFT urinalysis necessity of UTI urine tox pending patient got 1 L of normal saline in the ED. Review of Systems Review of Systems All other systems reviewed & are negative unless noted below or in HPI [facility] Medical History High blood pressure Degenerative disc disease History of high blood pressure Surgical History Previous section x2 Hx of ovarian cystectomy History of mandibular surgery 1992 History of lumbar fusion 1998 w/ Dr. Sommers Family History Brother Legacy FamHx Relation: Brother(s); Legacy FamHx Problem: 3 1 brain tumor- Marfan's syndrom- spinal meningitis age 3 Father Mother Social History Smoking Status: Former smoker Substance Use Type: None Meds Medications and Allergies Allergies No Known Allergies Allergy (Verified 09/21/24 15:49) Home Medications bisoprolol 5 mg-hydrochlorothiazide 6.25 mg tablet 1 tab PO DAILY 03/20/24 [History Confirmed 09/21/24] fluticasone propionate 50 mcg/actuation nasal spray,suspension 1 spray intranasal DAILY 14 days #16 grams 09/21/24 [Rx Confirmed 09/21/24] Exam Physical Exam Vital Signs: Temp Pulse Resp BP Pulse Ox O2 Del Method 98.2 F 72 20 184/90 H 98 Room Air 09/21/24 15:52 09/21/24 18:02 09/21/24 18:02 09/21/24 18:02 09/21/24 18:02 09/21/24 18:02 Narrative: General: Awake alert, no acute distress HEENT: head atraumatic, normocephalic, moist mucous membranes Neck: supple no masses, no lymphadenopathy CVS: regular rate and rhythm, no murmurs or gallops Respiratory: clear to auscultation bilaterally, no wheezing or crackles, symmetric expansion GI: soft, nondistended, nontender, positive bowel sounds with no organomegaly Extremity: moves all extremities, no restrictions of movements, no calf tenderness Neuro: AOx3, CN II-VII intact. Moves all extremities in all planes of motion. Skin: intact no rashes or lesions Results - Hospitalist H&P Lab Results Labs: Laboratory Last Values Corrected WBC 5.7 X10E3/uL (3.8-11.6) 09/21/24 16:19 Uncorrected WBC Count 5.7 x10E3/uL (3.8-11.6) 09/21/24 16:19 RBC 3.82 x10E6/uL (3.60-5.00) 09/21/24 16:19 Hgb 13.1 g/dL (11.8-15.4) 09/21/24 16:19 Hct 37.5 % (34.0-46.4) 09/21/24 16:19 MCV 98.3 fl (80-100) 09/21/24 16:19 MCH 34.2 pg (24.7-34.3) 09/21/24 16:19 MCHC 34.8 g/dL (32.0-35.0) 09/21/24 16:19 RDW 12.5 % (11.9-15.3) 09/21/24 16:19 Plt Count 278 x10E3/uL (150-450) 09/21/24 16:19 MPV 7.0 fl (6.3-10.7) 09/21/24 16:19 Neut % (Auto) 66.7 % (.) 09/21/24 16:19 Lymph % (Auto) 22.4 % (.) 09/21/24 16:19 Pike % (Auto) 9.4 % (.) 09/21/24 16:19 Eos % (Auto) 0.7 % (.) 09/21/24 16:19 Baso % (Auto) 0.8 % (.) 09/21/24 16:19 Nucleat RBC Rel Count 0.1 /100 WBC (0-0.5) 09/21/24 16:19 Neut # (Auto) 3.8 x10E3/uL (1.8-7.7) 09/21/24 16:19 Lymph # (Auto) 1.3 x10E3/uL (1.00-4.8) 09/21/24 16:19 Pike # (Auto) 0.5 x10E3/uL (0.0-0.8) 09/21/24 16:19 Eos # (Auto) 0.0 x10E3/uL (0.0-0.45) 09/21/24 16:19 Baso # (Auto) 0.0 x10E3/uL (0.0-0.2) 09/21/24 16:19 Monocyte Dist Width 16.55 % (0.00-20.00) 09/21/24 16:19 PHA Creatinine Clear 90.69 09/21/24 16:19 Sodium 118 mmol/L (136-145) L* 09/21/24 16:19 Potassium 3.7 mmol/L (3.5-5.1) 09/21/24 16:19 Chloride 83 mmol/L (98-107) L 09/21/24 16:19 Carbon Dioxide 25.8 mmol/L (21.0-31.0) 09/21/24 16:19 Anion Gap 12.9 mEq/L (6.0-15.0) 09/21/24 16:19 BUN 7 mg/dL (7-25) 09/21/24 16:19 Creatinine 0.66 mg/dL (0.60-1.20) 09/21/24 16:19 Est GFR (CKD-EPI) > 60.0 mL/Min 09/21/24 16:19 Glucose 122 mg/dL (70-100) H 09/21/24 16:19 Osmolality 242 mOsm (278-305) L 09/21/24 15:50 Calcium 9.3 mg/dL (8.6-10.3) 09/21/24 16:19 Total Bilirubin 0.8 mg/dl (0.3-1.0) 09/21/24 16:19 AST 22 U/L (13-39) 09/21/24 16:19 ALT 15 U/L (7-52) 09/21/24 16:19 Alkaline Phosphatase 62 U/L (34-104) 09/21/24 16:19 Troponin I High Sens 4 ng/L (0-15) 09/21/24 16:19 Total Protein 7.3 gm/dL (6.4-8.9) 09/21/24 16:19 Albumin 4.7 gm/dL (3.5-5.7) 09/21/24 16:19 Globulin 2.6 gm/dL 09/21/24 16:19 Albumin/Globulin Ratio 1.8 09/21/24 16:19 Total T4 7.57 ug/dL (5.39-11.82) 09/21/24 16:19 TSH 3rd Generation 0.87 uIU/mL (0.45-5.33) 09/21/24 16:19 Urine Color Colorless (Yellow) 09/21/24 15:50 Urine Appearance Clear (Clear) 09/21/24 15:50 Urine pH 7.0 (5.0-9.0) 09/21/24 15:50 Ur Specific Jackson 1.002 (1.001-1.030) 09/21/24 15:50 Urine Protein Negative mg/dL (Negative) 09/21/24 15:50 Urine Glucose (UA) Normal mg/dL (Normal) 09/21/24 15:50 Urine Ketones Negative (Negative) 09/21/24 15:50 Urine Occult Blood Negative (Negative) 09/21/24 15:50 Urine Nitrite Negative (Negative) 09/21/24 15:50 Urine Bilirubin Negative (Negative) 09/21/24 15:50 Urine Urobilinogen Normal mg/dL (Normal) 09/21/24 15:50 Ur Leukocyte Esterase Negative (Negative) 09/21/24 15:50 Assessment & Plan Assessment/Plan (1) Hyponatremia: Plan This is a 59-year-old female with significant past medical history of hypertension,, allergic rhinitis who presented to [facility] ED for concern for lightheadedness. She mentions that she went to [facility] today and was told that she has effusion in her ears and was found to be hypertensive there and was sent home. She denies any ear ache or discharge fromthe ear. Denies any fever or chills. Mentions that she drinks alcohol almost every day around 1-2 beers. Does not smoke currently. Denies any cough sore throat or runny nose. In the ED she was found to be hypertensive. Lab work shows normal WBC, hemoglobin 13.1, sodium 118 with potassium 3.7 and chloride was 83. Normal RFT and LFT urinalysis necessity of UTI urine tox pending patient got 1 L of normal saline in the ED. Plan: - Admit in the regular nursing floor with telemetry - Frequent BMP every 6 hours - Will hold on further IV fluid given her high blood pressure - Follow-up workup for hyponatremia-serum osmolality, urine osmolality and urinesodium - Target increase in sodium level would be around 4 to 6 mEq in 24 hours - Follow-up urine tox - Also started on CIWA protocol with initiation of thiamine, folic acid for alcohol abuse - Nephrology consulted for hyponatremia - Follow-up morning labs - Continue bisoprolol will hold on hydrochlorothiazide in setting of hyponatremia - Continue fluticasone - Full code - SCD for DVT prophylaxis IP vs OBS Justification Based on differential dx, clinical care plan, and risk of adverse events, if untreated, in my clinical judgement this patient requires an acute care setting as: INPATIENT because of an expectation of an over 2 midnight stay. Estimated length of stay (# of days): 3 Documented By: Cyrus Ellison MD 09/21/241818 Signed By: <Electronically signed by Cyrus Ellison MD> 09/21/24 1824 [facility] Work Phone: 1(482) 996-222305-11-2025 [place] [address] Hospitalist H&P Signed Patient: Billy Argueta MR#: [id number] : 1965 Acct:[id number] Age/Sex: 59 / F Adm Date: 5 Loc: ER Room: Type: [facility] ER Attending Dr: Copies to: MD Rosalva Watkins DO Jodi Lynn Schwab BEHAVIORAL THERAPY COORDINATOR~ HPI DATE OF EXAMINATION: 09/21/24 CHIEF COMPLAINT: Dizziness HISTORY OF PRESENT ILLNESS: This is a 59-year-old female with significant past medical history of hypertension,, allergic rhinitis who presented to [facility] ED for concern for lightheadedness. She mentions that she went to [facility] today and was told that she has effusion in her ears and was found to be hypertensive there and was sent home. She denies any ear ache or discharge fromthe ear. Denies any fever or chills. Mentions that she drinks alcohol almost every day around 1-2 beers. Does not smoke currently. Denies any cough sore throat or runny nose. In the ED she was found to be hypertensive. Lab work shows normal WBC, hemoglobin 13.1, sodium 118 with potassium 3.7 and chloride was 83. Normal RFT and LFT urinalysis necessity of UTI urine tox pending patient got 1 L of normal saline in the ED. Review of Systems Review of Systems All other systems reviewed & are negative unless noted below or in HPI [facility] Medical History High blood pressure Degenerative disc disease History of high blood pressure Surgical History Previous section x2 Hx of ovarian cystectomy History of mandibular surgery 1992 History of lumbar fusion 1998 w/ Dr. Sommers Family History Brother Legacy FamHx Relation: Brother(s); Legacy FamHx Problem: 3 1 brain tumor- Marfan's syndrom- spinal meningitis age 3 Father Mother Social History Smoking Status: Former smoker Substance Use Type: None Meds Medications and Allergies Allergies No Known Allergies Allergy (Verified 09/21/24 15:49) Home Medications bisoprolol 5 mg-hydrochlorothiazide 6.25 mg tablet 1 tab PO DAILY 03/20/24 [History Confirmed 09/21/24] fluticasone propionate 50 mcg/actuation nasal spray,suspension 1 spray intranasal DAILY 14 days #16grams 09/21/24 [Rx Confirmed 09/21/24] Exam Physical Exam Vital Signs: Temp Pulse Resp BP Pulse Ox O2 Del Method 98.2 F 72 20 184/90 H 98 Room Air 09/21/24 15:52 09/21/24 18:02 09/21/24 18:02 09/21/24 18:02 09/21/24 18:02 09/21/24 18:02 Narrative: General: Awake alert, no acute distress HEENT: head atraumatic, normocephalic, moist mucous membranes Neck: supple no masses, no lymphadenopathy CVS: regular rate and rhythm, no murmurs or gallops Respiratory: clear to auscultation bilaterally, no wheezing or crackles, symmetric expansion GI: soft, nondistended, nontender, positive bowel sounds with no organomegaly Extremity: moves all extremities, no restrictions of movements, no calf tenderness Neuro: AOx3, CN II-VII intact. Moves all extremities in all planes of motion. Skin: intact no rashes or lesions Results - Hospitalist H&P Lab Results Labs: Laboratory Last Values Corrected WBC 5.7 X10E3/uL (3.8-11.6) 09/21/24 16:19 Uncorrected WBC Count 5.7 x10E3/uL (3.8-11.6) 09/21/24 16:19 RBC 3.82 x10E6/uL (3.60-5.00) 09/21/24 16:19 Hgb 13.1 g/dL (11.8-15.4) 09/21/24 16:19 Hct 37.5 % (34.0-46.4) 09/21/24 16:19 MCV 98.3 fl (80-100) 09/21/24 16:19 MCH 34.2 pg (24.7-34.3) 09/21/24 16:19 MCHC 34.8 g/dL (32.0-35.0) 09/21/24 16:19 RDW 12.5 % (11.9-15.3) 09/21/24 16:19 Plt Count 278 x10E3/uL (150-450) 09/21/24 16:19 MPV 7.0 fl (6.3-10.7) 09/21/24 16:19 Neut % (Auto) 66.7 % (.) 09/21/24 16:19 Lymph % (Auto) 22.4 % (.) 09/21/24 16:19 Pike % (Auto) 9.4 % (.) 09/21/24 16:19 Eos % (Auto) 0.7 % (.) 09/21/24 16:19 Baso % (Auto) 0.8 % (.) 09/21/24 16:19 Nucleat RBC Rel Count 0.1 /100 WBC (0-0.5) 09/21/24 16:19 Neut # (Auto) 3.8 x10E3/uL (1.8-7.7) 09/21/24 16:19 Lymph # (Auto) 1.3 x10E3/uL (1.00-4.8) 09/21/24 16:19 Pike # (Auto) 0.5 x10E3/uL (0.0-0.8) 09/21/24 16:19 Eos # (Auto) 0.0 x10E3/uL (0.0-0.45) 09/21/24 16:19 Baso # (Auto) 0.0 x10E3/uL (0.0-0.2) 09/21/24 16:19 Monocyte Dist Width 16.55 % (0.00-20.00) 09/21/24 16:19 PHA Creatinine Clear 90.69 09/21/24 16:19 Sodium 118 mmol/L (136-145) L* 09/21/24 16:19 Potassium 3.7 mmol/L (3.5-5.1) 09/21/24 16:19 Chloride 83 mmol/L (98-107) L 09/21/24 16:19 Carbon Dioxide 25.8 mmol/L (21.0-31.0) 09/21/24 16:19 Anion Gap 12.9 mEq/L (6.0-15.0) 09/21/24 16:19 BUN 7 mg/dL (7-25) 09/21/24 16:19 Creatinine 0.66 mg/dL (0.60-1.20) 09/21/24 16:19 Est GFR (CKD-EPI) > 60.0 mL/Min 09/21/24 16:19 Glucose 122 mg/dL (70-100) H 09/21/24 16:19 Osmolality 242 mOsm (278-305) L 09/21/24 15:50 Calcium 9.3 mg/dL (8.6-10.3) 09/21/24 16:19 Total Bilirubin 0.8 mg/dl (0.3-1.0) 09/21/24 16:19 AST 22 U/L (13-39) 09/21/24 16:19 ALT 15 U/L (7-52) 09/21/24 16:19 Alkaline Phosphatase 62 U/L (34-104) 09/21/24 16:19 Troponin I High Sens 4 ng/L (0-15) 09/21/24 16:19 Total Protein 7.3 gm/dL (6.4-8.9) 09/21/24 16:19 Albumin 4.7 gm/dL (3.5-5.7) 09/21/24 16:19 Globulin 2.6 gm/dL 09/21/24 16:19 Albumin/Globulin Ratio 1.8 09/21/24 16:19 Total T4 7.57 ug/dL (5.39-11.82) 09/21/24 16:19 TSH 3rd Generation 0.87 uIU/mL (0.45-5.33) 09/21/24 16:19 Urine Color Colorless (Yellow) 09/21/24 15:50 Urine Appearance Clear (Clear) 09/21/24 15:50 Urine pH 7.0 (5.0-9.0) 09/21/24 15:50 Ur Specific Jackson 1.002 (1.001-1.030) 09/21/24 15:50 Urine Protein Negative mg/dL (Negative) 09/21/24 15:50 Urine Glucose (UA) Normal mg/dL (Normal) 09/21/24 15:50 Urine Ketones Negative (Negative) 09/21/24 15:50 Urine Occult Blood Negative (Negative) 09/21/24 15:50 Urine Nitrite Negative (Negative) 09/21/24 15:50 Urine Bilirubin Negative (Negative) 09/21/24 15:50 Urine Urobilinogen Normal mg/dL (Normal) 09/21/24 15:50 Ur Leukocyte Esterase Negative (Negative) 09/21/24 15:50 Assessment & Plan Assessment/Plan (1) Hyponatremia: Plan This is a 59-year-old female with significant past medical history of hypertension,, allergic rhinitis who presented to [facility] ED for concern for lightheadedness. She mentions that she went to [facility] today and was told that she has effusion in her ears and was found to be hypertensive there and was sent home. She denies any ear ache or discharge fromthe ear. Denies any fever or chills. Mentions that she drinks alcohol almost every day around 1-2 beers. Does not smoke currently. Denies any cough sore throat or runny nose. In the ED she was found to be hypertensive. Lab work shows normal WBC, hemoglobin 13.1, sodium 118 with potassium 3.7 and chloride was 83. Normal RFT and LFT urinalysis necessity of UTI urine tox pending patient got 1 L of normal saline in the ED. Plan: - Admit in the regular nursing floor with telemetry - Frequent BMP every 6 hours - Will hold on further IV fluid given her high blood pressure - Follow-up workup for hyponatremia-serum osmolality, urine osmolality and urinesodium - Target increase in sodium level would be around 4 to 6 mEq in 24 hours - Follow-up urine tox - Also started on CIWA protocol with initiation of thiamine, folic acid for alcohol abuse - Nephrology consulted for hyponatremia - Follow-up morning labs - Continue bisoprolol will hold on hydrochlorothiazide in setting of hyponatremia - Continue fluticasone - Full code - SCD for DVT prophylaxis IP vs OBS Justification Based on differential dx, clinical care plan, and risk of adverse events, if untreated, in my clinical judgement this patient requires an acute care setting as: INPATIENT because of an expectation ofan over 2 midnight stay. Estimated length of stay (# of days): 3 Documented By: Cyrus Ellison MD 09/21/241818 Signed By: 09/21/24 1825 [facility]05-11-2025 Radiology Diagnostic study note [facility] [place] [address] CT Scan Report Signed Patient: Billy Argueta MR#: [id number] : 1965 Acct:[id number] Age/Sex: 59 / F ADM Date: 5 Loc: ER Room: Type: [facility] ER Attending Dr: Copies to: Rosalva Lockhart DO~ Ordering Provider: Rosalva Lockhart DO Date of Service: 09/21/24 CT/CT head/brain wo con: lightheadedness and head pressure CT head/brain wo con 09/21/2024 4:07 PM SIGNS AND SYMPTOMS: lightheadedness and head pressure TECHNIQUE:Multi-detector CT axial slices of the brain were obtained without IV contrast. CT was performed with one or more of the following dose reduction techniques: Automated exposure control, adjustment of the mA and/or kV accordingto patient size, or use of iterative reconstruction technique. COMPARISON: None. FINDINGS: There is no shift of the midline structures, acute intracranial bleeding, mass effects, or evidence of acute ischemia. There is periventricularwhite matter hypoattenuation suspicious for chronic microvascular ischemic change. The ventricular system is normal in size. The brainstem and the cerebellum are unremarkable. The visualized intraorbital contents, the visualized paranasal sinuses, and the infratemporal soft tissues show no acute abnormality. The osseous structures in the skull base and the calvarium show no abnormality. CT/CT head/brain wo con IMPRESSION: No acute intrarenal pathology. 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 Impression dictated by: Alayna Ashford M.D. 09/21/2024 5:07 PM Dictation Location: [place] [address] Transcribed By: [facility] 09/21/241706 Dictated By: Alayna Ashford II, MD 09/21/241705 Signed By: 09/21/241706 [facility] Work Phone: 1(378) 501-655605-11-2025 Progress note Author Cryus Ellison [facility] Note Date/Time September 22, 2024 2:52p [facility] ENTER [address] [place] [address] Hospitalist Progress Note Signed Patient: Billy Argueta MR#: [id number] : 1965 Acct:[id number] Age/Sex: 59 / F Adm Date: 5 Loc: 4P Room: [address] [place] [address] Type: ADM IN Attending Dr: Cyrus Ellison MD Copies to: ~ Date of Service: 09/22/2024 Subjective Subjective Narrative: Patient was standing and walking around and mentioned that her symptoms are muchbetter. Sodium today was 129. Exam Physical Exam Vital Signs: Temp Pulse Resp BP Pulse Ox O2 Del Method 97.7 F 68 18 135/69 98 Room Air 09/22/24 12:00 09/22/24 12:00 09/22/24 12:00 09/22/24 12:00 09/22/24 12:00 09/22/24 12:00 Narrative: General: Awake alert, no acute distress HEENT: head atraumatic, normocephalic, moist mucous membranes Neck: supple no masses, no lymphadenopathy CVS: regular rate and rhythm, no murmurs or gallops Respiratory: clear to auscultation bilaterally, no wheezing or crackles, symmetric expansion GI: soft, nondistended, nontender, positive bowel sounds with no organomegaly Extremity: moves all extremities, no restrictions of movements, no calf tenderness Neuro: AOx3, CN II-VII intact. Moves all extremities in all planes of motion. Skin: intact no rashes or lesions Objective Lab Results 09/22/24 05:32 09/22/24 11:11 Meds Allergies and Active Meds Allergies No Known Allergies Allergy (Verified 09/21/24 15:49) Active Meds: Active Medications Generic Name Dose Route Start Last Admin Trade Name Freq PRN Reason Stop Dose Admin Acetaminophen 650 mg 09/21/24 18:08 09/22/24 12:10 Acetaminophen 325 Mg Tablet PO 09/21/25 18:07 650 mg Q6HR PRN Administration Pain Scale 1 - 3 or fever Bisoprolol Fumarate 5 mg 09/22/24 09:00 09/22/24 09:05 Bisoprolol 5 Mg Tablet PO 09/22/25 08:59 5 mg DAILY ALEXX Administration Fluticasone Propionate 1 spray 09/22/24 09:00 09/22/24 09:05 Fluticasone Propionate [place] 120 [place]/16 Gm Bottle INTRANASAL 09/22/25 08:59 1 spray DAILY ALEXX Administration Folic Acid 1 mg 09/22/24 09:00 09/22/24 09:05 Folic Acid 1 Mg Tablet PO 09/22/25 08:59 1 mg DAILY ALEXX Administration Lorazepam 0 mg 09/21/24 18:08 Lorazepam 1 Mg Tablet PO 03/20/25 18:07 PROTOCOL PRN Alcohol Withdrawal Protocol Lorazepam 0 mg 09/21/24 18:08 Lorazepam 2 Mg/Ml Vial IM 03/20/25 18:07 PROTOCOL PRN Alcohol Withdrawal Protocol Multivitamins 1 tab 09/22/24 09:00 09/22/24 09:05 Multivitamin 1 Tab Tablet PO 09/22/25 08:59 1 tab DAILY ALEXX Administration Ondansetron HCl 4 mg 09/21/24 18:08 Ondansetron 4 Mg/2 Ml Vial IV-PUSH 09/21/25 18:07 Q8H PRN Nausea And Vomiting Sodium Chloride 0 ml 09/21/24 15:49 09/21/24 16:22 Sodium Chloride 0.9 % 10 Ml Syringe IV-PUSH 09/21/25 15:48 10 ml PRN PRN Administration Flush Thiamine HCl 100 mg 09/21/24 21:00 09/22/24 09:05 Thiamine 100 Mg Tablet PO 09/21/25 20:59 100 mg BID ALEXX Administration A&P - Hospitalist Assessment/Plan (1) Hyponatremia: Plan This is a 59-year-old female with significant past medical history of hypertension,, allergic rhinitis who presented to [facility] ED for concern for lightheadedness. She mentions that she went to urgentcare today and was told that she has effusion in her ears and was found to be hypertensive there and was sent home. She denies any ear ache or discharge fromthe ear. Denies any fever or chills. Mentions that she drinks alcohol almost every day around 1-2 beers. Does not smoke currently. Denies any cough sore throat or runny nose. In the ED she was found to be hypertensive. Lab work shows normal WBC, hemoglobin 13.1, sodium 118 with potassium 3.7 and chloride was 83. Normal RFT and LFT urinalysis necessity of UTI urine tox pending patient got 1 L of normal saline in the ED. urine tox negative. Plan: - Admit in the regular nursing floor with telemetry - Nephrology started on D5 and desmopressin to slow down increasing sodium level. - Recommended more frequent BMP every 4 hours. Recommended to discontinue hydrochlorothiazide on discharge. - Follow-up workup for hyponatremia-serum osmolality, urine osmolality and urinesodium - Target increase in sodium level would be around 4 to 6 mEq in 24 hours - Also started on CIWA protocol with initiation of thiamine, folic acid for alcohol abuse - Nephrology consulted for hyponatremia-appreciate recommendation - Follow-up morning labs - Continue bisoprolol will hold on hydrochlorothiazide in setting of hyponatremia - Continue fluticasone - Full code - SCD for DVT prophylaxis Documented By: Cyrus Ellison MD 09/22/24 6850 Signed By: <Electronically signed by Cyrus Ellison MD> 09/22/24 1452 [facility] Work Phone: 1(288) 415-481605-11-2025 Progress note Author Christopher Aguillon [facility] Note Date/Time September 23, 2024 11:31 am [facility] ENTER [address] [place], [place] [id number] Nephrology Progress Note Signed Patient: Billy Argueta MR#: [id number] : 1965 Acct:[id number] Age/Sex: 59 / F Adm Date: 5 Loc: 4 Room: [address] [place] [address] Type: ADM IN Attending Dr: Khloe Zhang MD Copies to: ~ Date of Service: 09/23/2024 Subjective Subjective Narrative: Ms. Argueta is a 59-year-old female with relevant past medical history of essential hypertension and degenerative disc disease who presented to [facility] ED on 09/21/2024 complaining of persistent lightheadedness. Earlier that day, the patient went to urgent care because of the lightheadedness, and they told her that she had effusion behind her right ear and was found to be hypertensive, andthen sent her home. She then returned to [facility] due to having persistent symptoms of lightheadedness and her head feeling full. Upon arrival to the emergency department, she was found to be hyponatremic with sodium of 118. Upon examining the patient today, she feels a bit better than she felt when she came into the hospital. Sodium has increased to 129 today with potassium 3.7. Upon further questioning with the patient, she does admit to drinking 1-2 beers per day, and then binges during holidays and vacations. She has never been hospitalized for alcohol withdrawal in the past. She does also drink approximately 80 to 100 fluid ounces of water per day. Her diet is not the best, and she admits to low protein intake overall she is ex-smoker smoked for 30 years but quit about 10 years ago. She denies any history of productive cough hemoptysis unintentional weight loss or COPD. Interim history Patient was seen and examined at bedside. She is feeling better today denies any chest pain palpation cough nausea without any shortness of breath. She was started on clonidine by the hospitalist team. 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,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, 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 Musculoskeletal: No swelling or limitation of movement of the large joints Psychiatric: Cooperative, normal mood and affect Objective Intake and Output I&O: Intake & Output 09/20/24 09/21/24 09/22/24 09/23/24 23:59 23:59 23:59 23:59 Intake Total 1000 / 1000 450 / 450 180 / 180 Output Total 1150 / 1150 650 / 650 Balance 1000 / 1000 -700 / -700 -470 / -470 Weight 63.9 kg 63.5 kg 65 kg Meds and Allergies Meds: Active Medications Acetaminophen (Acetaminophen 325 Mg Tablet) 650 mg PO Q6HR PRN PRN Reason: Pain Scale 1 - 3 or fever Stop: 09/21/25 18:07 Last Admin: 09/22/24 12:10 Dose: 650 mg Bisoprolol Fumarate (Bisoprolol 5 Mg Tablet) 5 mg PO DAILY [facility] Stop: 09/22/25 08:59 Last Admin: 09/23/24 08:12 Dose: 5 mg Clonidine HCl (Clonidine 0.2 Mg Tablet) 0.2 mg PO BID [facility] Stop: 09/22/25 17:59 Last Admin: 09/23/24 08:12 Dose: 0.2 mg Fluticasone Propionate (Fluticasone Propionate [place] 120 [place]/16 Gm Bottle) 1 spray INTRANASAL DAILY ALEXX Stop: 09/22/25 08:59 Last Admin: 09/23/24 08:13 Dose: 1 spray Folic Acid (Folic Acid 1 Mg Tablet) 1 mg PO DAILY [facility] Stop: 09/22/25 08:59 Last Admin: 09/23/24 08:12 Dose: 1 mg Lorazepam (Lorazepam 1 Mg Tablet) 0 mg PO PROTOCOL PRN; Protocol PRN Reason: Alcohol Withdrawal Stop: 03/20/25 18:07 Lorazepam (Lorazepam 2 Mg/Ml Vial) 0 mg IM PROTOCOL PRN; Protocol PRN Reason: Alcohol Withdrawal Stop: 03/20/25 18:07 Multivitamins (Multivitamin 1 Tab Tablet) 1 tab PO DAILY ALEXX Stop: 09/22/25 08:59 Last Admin: 09/23/24 08:13 Dose: 1 tab Ondansetron HCl (Ondansetron 4 Mg/2 Ml Vial) 4 mg IV-PUSH Q8H PRN PRN Reason: Nausea And Vomiting Stop: 09/21/25 18:07 Sodium Chloride (Sodium Chloride 0.9 % 10 Ml Syringe) 0 ml IV-PUSH PRN PRN PRN Reason: Flush Stop: 09/21/25 15:48 Last Admin: 09/21/24 16:22 Dose: 10 ml Thiamine HCl (Thiamine 100 Mg Tablet) 100 mg PO BID ALEXX Stop: 09/21/25 20:59 Last Admin: 09/23/24 08:13 Dose: 100 mg Allergies No Known Allergies Allergy (Verified 09/21/24 15:49) Results - Nephrology Labs 09/23/24 04:53 09/23/24 07:40 Labs: 09/23/24 07:40 BUN 8 Creatinine 0.55 L Phosphorus 3.6 Albumin 4.1 Radiology Impressions Impressions - last 24 hours: Impressions Chest X-Ray 09/22/24 10:32 IMPRESSION: NO ACUTE CARDIOPULMONARY ABNORMALITY. Impression dictated by: Lucy Mcdaniel M.D. 09/22/2024 12:47 PM Dictation Location: [place] [address] Any impression(s) listed above is documentation that was entered by the reading physician into a diagnostic report(s) for Billy Argueta. I have reviewed the report(s) and am incorporating any findings in the treatment plan of this patient where applicable. A&P - Nephrology Assessment/Plan (1) Hyponatremia: Assessment/Problem Details: Patient has a hypotonic hyponatremia and appears to be euvolemic on exam. She likely has hyponatremia likely due to the alcoholism and poor osmolar intake with some component of HCTZ. She has a low urine osmolality with high urine sodium but was taking HCTZ. Her serum sodium corrected more 8 mEq in less than 24 hours. Due to her history of alcoholism she will be at risk of osmotic demyelination syndrome so we will reload of the sodium with the D5 water and desmopressin. She has no evidence of hypothyroidism. (2) Alcohol abuse: Assessment/Problem Details: Patient admitted to history of alcohol abuse. She is currently on CIWA protocol. (3) High blood pressure: Assessment/Problem Details: She has a history of hypertension and was taking bisoprolol and HCTZ at home. She is currently on bisoprolol. Plan * Her serum sodium is within the acceptable range. Will continue fluid restriction 1 L a day. No need for salt tablet or urea. * Will monitor serum sodium every 6 hours. The goal of correction of serum sodium is 6 to 8 mEq in 24 hours. * Continue CIWA protocol as indicated * Continue current dose of the bisoprolol. Continue hold HCTZ. I would recommend not to resume HCTZ upon discharge. * Will also check serum cortisol to rule out adrenal insufficiency. Documented By: Christopher Aguillon MD 09/23/24 1128 Signed By: <Electronically signed by Christopher Aguillon MD> 09/23/24 1131 [facility] Work Phone: 1(590) 953-998505-11-2025 Evaluation note* Diagnosis Onset Date Resolution Status Admit Date Acute effusion of both middl e ears acute September 21, 2024 1 1:03am Acute sinusitis acute September 21, 2024 11:03am Hyponatremia acute September 21 6:01pm [facility] Work Phone: 1(639) 577-658711-07-2024 Evaluation note* Diagnosis Onset Date Resolution Status Admit Date Cervical radiculopathy acute No vember 2023 1:02pm Left upper limb pain acute Royce herrera 2023 1:02pm [facility] Work Phone: 1(920) 564-172112-28-2023 Hospital Discharge instructions Patient Education 05/10/2023 07:31:18 [facility]- After Surgery Eye (Custom) [place], [place] Gustavo Cadet D.O. AFTER SURGERY [right eye] [left eye] RESTRICTIONS FOR SIX WEEKS: No rubbing of eye. Try not to sleep on stomach. Wear eye shield at bedtime for 2 WEEKS. Avoid circumstances which may result in trauma to the eye. You may shower and/or bathe. To wash hair allow water to run down back of the head if possible. For YOUR comfort, wear sunglasses in sunlight as needed. METHOD OF APPLYING EYE MEDICATION: Look up. Pull down lower lid. (NO PRESSURE ON EYE) Apply one drop of medication inside the pocket of lower lid. ON THE DAY OF SURGERY: Wear your shield until you get home and then it can be removed. Reapply the shield at bedtime or atany time you are sleeping. PAIN: use Tylenol 325 mg. every 4 hours as needed. The eye may feel as if there is an eyelash in it. This scratchiness is normal. Start your eye drops when you get home. (segovia)Besivance/ Ofloxacin apply to surgical eye, three more times today. (blanchard)Diclofenac/ Ketorolac apply to surgical eye, four more times today. (pink/white)Prednisolone Acetate apply to surgical eye, six times today. -Wait 3-5 minutes between eye drops -Do one set of eye drops the next day in the morning before your appointment. Follow Up Care 03/26/2023 08:34:44 With:ALAYNA VILLANUEVA Address: [address] [place], [place] [id number] ( ) -[address] [facility] (1) When:1 to 2 days [facility]11-30-2023 Hospital Discharge instructions Patient Education 04/12/2023 08:52:51 [facility]- After Surgery Eye(CUSTOM) [place], [place] Gustavo Cadet D.O. AFTER SURGERY [right eye] [left eye] RESTRICTIONS FOR SIX WEEKS: No rubbing of eye. Try not to sleep on stomach. Wear eye shield at bedtime for 2 WEEKS. Avoid circumstances which may result in trauma to the eye. You may shower and/or bathe. To wash hair allow water to run down back of the head if possible. For YOUR comfort, wear sunglasses in sunlight as needed. METHOD OF APPLYING EYE MEDICATION: Look up. Pull down lower lid. (NO PRESSURE ON EYE) Apply one drop of medication inside the pocket of lower lid. ON THE DAY OF SURGERY: Wear your shield until you get home and then it can be removed. Reapply the shield at bedtime or atany time you are sleeping. PAIN: use Tylenol 325 mg. every 4 hours as needed. The eye may feel as if there is an eyelash in it. This scratchiness is normal. Start your eye drops when you get home. (segovia)Besivance/ Ofloxacin apply to surgical eye, three more times today. (blanchard)Diclofenac/ Ketorolac apply to surgical eye, four more times today. (pink/white)Prednisolone Acetate apply to surgical eye, six times today. -Wait 3-5 minutes between eye drops -Do one set of eye drops the next day in the morning before your appointment. Follow Up Care 03/26/2023 08:31:40 With:ALAYNA VILLANUEVA Address: [address] [place] [phone]- ( ) -[phone] [facility] (1) When:1 to 2 days [facility]07-20-2023 Evaluation note* Encounter Date Diagnosis Assessment Notes Treatment Notes Treatment Clinical Notes Nov, Sore throat (ICD-10 - J02.9) Nov, Acute non-recurrent maxillary sinusitis (ICD-10 - J01.00) Advised patient that rapid Strep test was negative today in office. Discussed diagnosis with patient. Will today for bacterial sinusitis based on physical exam and duration of symptoms. Take antibiotic as prescribed, complete entire course of therapy even if symptoms resolve. Reviewed allergies and recent antibiotic use with patient. Supportive care as directed, push fluids and rest, Tylenol as directed for discomfort/fever, warm moist compress over sinuses several times a day, cool mist humidification, nasal saline spray as directed. Symptoms should improve in the next 3 days, if symptoms persist follow up with PCP. Immediate eval for warning s/sx as discussed. Patient verbalizes understanding and is agreeable to treatment plan [facility] 05-28-2023 Evaluation note* Encounter Date Diagnosis Assessment Notes Treatment Notes Treatment Clinical Notes September, Contact with and (suspected) exposure to covid-19 (ICD-10 - Z20.822) Discharge Instructions for COVID-19 (Suspected or Confirmed ) material was printed Drink plenty fluids, get plenty of rest. Continue home medications including Flonase and [id number] allergy medicine as prescribed. Take prednisone as prescribed until gone. Follow-up with your family physician if no improvement in 2 to 3 days. September, Acute sinusitis, recurrence not specified, unspecified location (ICD-10 - J01.90) [facility] 06-03-2022 Miscellaneous Notes* Telephone Encounter - Kina Daily RN - 10/14/2021 11:04 AM EDT noted * Telephone Encounter - Alejandra Banuelos - 10/14/2021 10:26 AM EDT Received the following record(s) via Fax. -Discharge Note Date 10/13/21 Record(s) scanned into pt's chart. [facility] Miscellaneous Notes* Telephone Encounter - Didier Magana RN - 09/02/2021 10:00 AM EDT Neuro SPINE CARE COORDINATION QUICK NOTE Called and left message for pt to return call. Refill meloxicam PT notes not received, need to be faxed to [phone] Massage therapy [facility] Miscellaneous Notes* Telephone Encounter - Kina Daily RN - 08/16/2021 11:41 AM EDT Neuro SPINE CARE COORDINATION QUICK NOTE Awaiting CD for review. * Telephone Encounter - Sheila Hong Asst - 08/15/2021 3:50 PM EDT Received the following record(s) via fax XR C Spine report Date 08/01/21 Record(s) scanned into pt's chart. [facility]2022 NoteHNO ID: [id number] Author: Vickie Jose APRN.BEHAVIORAL THERAPY COORDINATOR Service: ? Author Type: Nurse Practitioner Type: Progress Notes Filed: 07/22/2021 1:38 PM Note Text: Spine Care Path Neck Pain - Chronic (> 12 weeks) Initial Exam Virtual Ambulatory Visit Two identifiers verified: yes Present for visit: patient Start time: 8:35 AM End time: 9:30 AM [facility] Patient Location: Patient Home or Place of Residence SUBJECTIVE HISTORY OF PRESENT ILLNESS: Billy ARGUETA is a 56 year old female who presents with a chief complaint of neck and arm pain and is seen in consultation requested by Dr. Didier Nguyen for an opinion regarding neck/arm/back. My final recommendations will be communicated back to the requesting physician by way of shared medical record or letter via US mail. Other Issues Addressed at the Visit Today: None. Precipitating Event: None The pain has been present ~5 years . Started as intermittent and now constant over the past few months. Her pain level is currently 7 on a scale of 0-10. Patient c/o constant dull, heavy, , soreness in the neck and left scapular region. Pain is also in her left shoulder down posterior arm into the forearm.Reports numbness left UE in same distribution. 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 No clumsiness. Has not dropped objects. She also c/o headaches which respond to ibuprofen. She also reports heaviness in the breast bone and feels like spasms. Had visit to ED ~1 year ago and cardiac work up which reportedly was unremarkable. Bowel/bladder dysfunction: denied Numbness/tingling: left UE Saddle anesthesia: denied Weakness/foot drop/slap foot/clumsiness/dropping objects: left UE weakness (insurance risk surveyor strength decreased). Previous PT: none Previous spine surgery: 1998 lumbar L5-S1 fusion for disc herniation (did well following surgery. Previous spinal injections/procedures: none Previous imaging: MRI 07/08/2021 X-rays ~1 year ago and not uploaded Sleep: melatonin prn - pain does not interrupt Mood: frustrated by persistent pain. 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 Prior Therapy: ? Medications: Membrane stabilizers- Gabapentin (Gralise, Neuraptine, Neurontine) and Oral steroids- Prednisone ? physician guided exercise gabapentin 100mg daily w/o benefit. Has not tried higher dose yet. Will consider. Oral steroids with benefit NSAIDS ibuprofen w/o benefit. Litigation: No Workers' Compensation: No YELLOW AND BLUE FLAGS No-Neg Attitude; Back Pain is Disabling No-Avoiding Activity (for Fear of Pain) No-Depression or Anxiety Disorders No-Social Problems No-Substance Use Disorder No-Job Dissatisfaction No-Financial Disincentives Patient Entered Questionnaires Spine Questions 07/21/2021 Pain Location: Neck Pain Duration: 1 to 5 years Pain over last 6 months: Every day or nearly every day in the past 6 months Symptoms from neck/cervical spine: Yes Employment Status: Working now Involved in law suit/legal claim: No Spine Red Flags 07/21/2021 Any type of cancer: No Unexplained fever: No Bowel or bladder disfunction: No Unintentional weight loss: No Osteoporosis: No Neck Questionnaires 07/21/2021 Benzel Modified NEREIDA Score 17 (A lower score indicates increased pain and issues.) PROMIS Score Percentiles Physical Health 07/21/2021 Physical Function Percentile 31 Sleep Percentile 38 Fatigue Percentile 5 Pain Interference Percentile 4 PROMIS SOCIAL ROLE SCORE 07/21/2021 Social Role Satisfaction Percentile 7 PROMIS Global Health Scale 07/21/2021 Physical Health Percentile 10 Mental Health Percentile 63 Percentiles provide an indication of how the patient's score ranks in relation to the general population. Higher percentile rankings indicate better function/quality of life. 50th percentile is the average of the general population and indicates half of respondents had a worse score. Depression Screening: PHQ-9 07/21/2021 Score 3 PHQ-9 Self Harm 07/21/2021 Question 9 Not at all PHQ-9 Self-Harm (Item 9) response options: 0 Not at all 1 Several days 2 More than half the days 3 Nearly every day PHQ-9 Levels: 0-4 No - mild depression 5-9 Mild depression 10-14 Moderate depression 15-19 Moderately severe depression 20-27 Severe depression There is no problem list on file for this patient. No past medical history on file. No past surgical history on file. Social History Tobacco Use - Smoking status: Not on file - Smokeless tobacco: Not on file Substance Use Topics - Alcohol use: Not on file - Drug use: Not on file No family history on file. ALLERGIES Not on File CURRENT MEDICATIONS: No prescriptions on file. REV (more content not included)...[facility]03-07-2022 NoteHNO ID: [id number] Author: Bina Castro PA-C Service: ? Author Type: Physician Medical Sales Consultant Type: Progress Notes Filed: 07/18/2021 3:52 PM Note Text: Per Triage: Billy ARGUETA is a 56 year old female that requests evaluation of spine. Per review, they have symptoms of back pain, arm pain, neck pain, numbness, weakness, trouble using hands Prior spine surgery: 1998 [facility] Address: [address] [place] [address] ? CMT: none Studies (Reports unless indicated) MRI cervical spine report 07/08/21: Moderate to severe foraminal stenosis, greatest on the left at C6-7 Disposition: Based on triage, recommend patient be scheduled with medical spine provider Please make sure patient imaging is available for review [facility] NoteHNO ID: [id number] Author: Harvey Hernandez Service: ? Author Type: ? Type: Progress Notes Filed: 07/18/2021 3:52 PM Note Text: Patient name: Billy ARGUETA Are you being referred by a [facility] Provider or Pain Management Provider at [facility]? No If answer is YES please schedule directly with surgeon, triage does not need to be completed. Is this a self-referral No If not, who is the Referring Provider Dr. Didier Nguyen Is this a 2nd opinion, have you been offered surgery by another surgeon? No MRI/CT/myelogram within 12 months? Yes If NO , please refer to medical spine or PCP to complete above imaging, triage does not need to be completed If YES,? please ask for the name/address of the facility where the MRI/CT/myelogram was completed: [address] [place], [place] MRI/CT/myelogram viewable in Epic: No If not, please provide [phone] to fax in imaging reports for review. Also, please inform patient to hand carry imaging disc to appointment. XR (spine) within 12 months: No If YES,? please ask for the name/address of the facility where the XR was completed: N/A Requested provider (First and Last name): N/A Are you interested in a virtual visit if offered? No 1. Where are you having symptoms related to this visit? Back pain Yes Leg pain No Arm pain Yes Neck pain Yes 2. Are you having any of the following symptoms: Difficulty walking No Numbness Yes Weakness Yes Trouble using your hands? Yes 3. Have you had any injections or physical therapy in the last 12 months? No If YES then please ask for the name/address of the facility where the injections and/or physical therapy was completed N/A Have you tried any other kinds of non-surgical treatments in the last 12 months? (For example: NSAIDS, muscle relaxants, analgesics, oral steroids, Chiropractor, Acupuncture): No 4. Are you currently taking daily prescribed narcotic medications for your current symptoms (For example Oxycodone, Hydrocodone, Tramadol, Morphine, Other)? No Gabapentin 5. Have you had previous spinal surgery for this same symptoms? Yes If YES? please ask for the name of facility/address of where the surgery was completed: 1998 [facility] Address: [address] [place] [address] [place] [address] Nephrology Consult Note Signed with Addenda Patient: Billy Argueta MR#: [id number] : 1965 Acct:[id number] Age/Sex: 59 / F Adm Date: 5 Loc: 4P Room: 1Z8493-2 Type: ADM IN Attending Dr: Khloe Zhang MD Copies to: MD Tara Hummel CNP, MD~ ADDENDUM1 Patient was seen and examined with the resident on 09/22/2024. Labs were reviewed and plan discussedas below. In summary this is a 59-year-old female was admitted for symptomatic critical hyponatremia and was started on 3% saline. She had a rapid correction and her sodium needs to be lowered to avoid osmotic demyelination. Will monitor serum sodium every 4 hours. Addendum Documented By: Christopher Aguillon MD 09/23/24 1036 Addendum Signed By: 09/23/24 1036 Providers Consult Date: 09/22/24 Requesting Provider: Cyrus Ellison MD Primary Care Provider: PARISH Helm HPI Reason for Consult: Hyponatremia History of Present Illness: Ms. Argueta is a 59-year-old female with relevant past medical history of essential hypertension and degenerative disc disease who presented to [facility] ED on 09/21/2024 complaining of persistent lightheadedness. Earlier that day, the patient went to urgent care because of the lightheadedness, and theytold her that she had effusion behind her right ear and was found to be hypertensive, andthen sent her home. She then returned to [facility] due to having persistent symptoms of lightheadedness and her head feeling full. Upon arrival to the emergency department, she was foundto be hyponatremic with sodium of 118. Upon examining the patient today, she feels a bit better than she felt when she came into the hospital. Sodium has increased to 129 today with potassium 3.7. Upon further questioning with the patient, she does admit to drinking 1-2 beers per day, and then binges during holidays and vacations. Shehas never been hospitalized for alcohol withdrawal in the past. She does also drink approximately 80 to 100 fluid ounces of water per day. Her diet is not the best, and she admits to low protein intake overall she is ex-smoker smoked for 30 years but quit about 10 years ago. She denies any history of productive cough hemoptysis unintentional weight loss or COPD. Review of Systems Review of Systems All other systems reviewed & are negative unless noted below or in HPI Review of systems: Cardiovascular: denies any chest pain, palpitation Pulmonary: denies any cough, hemoptysis Gastrointestinal: denies any nausea, vomiting, diarrhea Neurological :denies any headache, numbness, weakness Endocrine: denies any polyuria, polydipsia Dermatological: denies any itching or rash [facility] Medical History (Updated 09/22/24 @ 10:31 by Christopher Aguillon MD) High blood pressure Degenerative disc disease History of high blood pressure Surgical History Previous section x2 Hx of ovarian cystectomy History of mandibular surgery 1992 History of lumbar fusion 1998 w/ Dr. Sommers Family History Brother Legacy FamHx Relation: Brother(s); Legacy FamHx Problem: 3 1 brain tumor- Marfan's syndrom- spinal meningitis age 3 Father Mother Social History Smoking Status: Former smoker Substance Use Type: None Meds Medications & Allergies Allergies No Known Allergies Allergy (Verified 09/21/24 15:49) Home Medications bisoprolol 5 mg-hydrochlorothiazide 6.25 mg tablet 1 tab PO DAILY 03/20/24 [History Confirmed 09/21/24] fluticasone propionate 50 mcg/actuation nasal spray,suspension 1 spray intranasal DAILY 14 days #16grams 09/21/24 [Rx Confirmed 09/21/24] Active Medications: Active Medications Acetaminophen (Acetaminophen 325 Mg Tablet) 650 mg PO Q6HR PRN PRN Reason: Pain Scale 1 - 3 or fever Stop: 09/21/25 18:07 Bisoprolol Fumarate (Bisoprolol 5 Mg Tablet) 5 mg PO DAILY ALEXX Stop: 09/22/25 08:59 Last Admin: 09/22/24 09:05 Dose: 5 mg Fluticasone Propionate (Fluticasone Propionate [place] 120 [place]/16 Gm Bottle) 1 spray INTRANASAL DAILY ALEXX Stop: 09/22/25 08:59 Last Admin: 09/22/24 09:05 Dose: 1 spray Folic Acid (Folic Acid 1 Mg Tablet) 1 mg PO DAILY ALEXX Stop: 09/22/25 08:59 Last Admin: 09/22/24 09:05 Dose: 1 mg Dextrose (5 % Dextrose In Water) 1,000 mls @ 150 mls/hr IV .Q6H40M [facility] Stop: 09/22/24 11:29 Lorazepam (Lorazepam 1 Mg Tablet) 0 mg PO PROTOCOL PRN; Protocol PRN Reason: Alcohol Withdrawal Stop: 03/20/25 18:07 Lorazepam (Lorazepam 2 Mg/Ml Vial) 0 mg IM PROTOCOL PRN; Protocol PRN Reason: Alcohol Withdrawal Stop: 03/20/25 18:07 Multivitamins (Multivitamin 1 Tab Tablet) 1 tab PO DAILY [facility] Stop: 09/22/25 08:59 Last Admin: 09/22/24 09:05 Dose: 1 tab Ondansetron HCl (Ondansetron 4 Mg/2 Ml Vial) 4 mg IV-PUSH Q8H PRN PRN Reason: Nausea And Vomiting Stop: 09/21/25 18:07 Sodium Chloride (Sodium Chloride 0.9 % 10 Ml Syringe) 0 ml IV-PUSH PRN PRN PRN Reason: Flush Stop: 09/21/25 15:48 Last Admin: 09/21/24 16:22 Dose: 10 ml Thiamine HCl (Thiamine 100 Mg Tablet) 100 mg PO BID [facility] Stop: 09/21/25 20:59 Last Admin: 09/22/24 09:05 Dose: 100 mg Exam Physical Exam Vital Signs: Temp Pulse Resp BP Pulse Ox O2 Del Method 97.8 F 75 18 150/72 H 97 Room Air 09/21/24 21:30 09/22/24 08:12 09/22/24 08:12 09/22/24 08:12 09/22/24 08:12 09/22/24 08:20 Narrative: General: Appears comfortable and not in distress Heart: S1-S2, no rub Lung: Bilateral air entry, no wheezing or crackles Abdomen: Soft, positive bowel sounds Extremities: No edema, no cyanosis Head: Atraumatic, normocephalic Ear: No gross hearing Deficit or external ear redness Eyes: No pallor or redness Neck: No JVD or visible mass Skin: No rashes , warm to touch 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,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, 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 Musculoskeletal: No swelling or limitation of movement of the large joints Psychiatric: Cooperative, normal mood and affect Results - Nephrology Labs 09/22/24 05:32 09/22/24 05:32 Labs: 09/21/24 09/21/24 09/22/24 15:50 16:19 00:35 BUN 7 6 L Creatinine 0.66 0.53 L Phosphorus Albumin 4.7 Urine Color Colorless Urine Appearance Clear Urine pH 7.0 Ur Specific Jackson 1.002 Urine Protein Negative Urine Glucose (UA) Normal Urine Ketones Negative Urine Occult Blood Negative Urine Nitrite Negative Ur Leukocyte Esterase Negative 09/22/24 05:32 BUN 6 L Creatinine 0.60 Phosphorus 4.2 Albumin Urine Color Urine Appearance Urine pH Ur Specific Jackson Urine Protein Urine Glucose (UA) Urine Ketones Urine Occult Blood Urine Nitrite Ur Leukocyte Esterase Radiology Impressions Impressions - last 24 hours: Impressions Head CT 09/21/24 16:06 IMPRESSION: No acute intrarenal pathology. 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 Impression dictated by: Alayna Ashford M.D. 09/21/2024 5:07 PM Dictation Location: [place] [address] Any impression(s) listed above is documentation that was entered by the reading physician into a diagnostic report(s) for Billy Argueta. I have reviewed the report(s) and am incorporating any findings in the treatment plan of this patient where applicable. A&P - Nephrology Assessment/Plan (1) Hyponatremia: Assessment/Problem Details: Patient has a hypotonic hyponatremia and appears to be euvolemic on exam. She likely has hyponatremia likely due to the alcoholism and poor osmolar intake with some component of HCTZ. She has a low urine osmolality with high urine sodium but was taking HCTZ. Her serum sodium corrected more 8 mEq inless than 24 hours. Due to her history of alcoholism she will be at risk of osmotic demyelination syndrome so we will reload of the sodium with the D5 water and desmopressin. (2) Alcohol abuse: Assessment/Problem Details: Patient admitted to history of alcohol abuse. She is currently on CIWA protocol. (3) High blood pressure: Assessment/Problem Details: She has a history of hypertension and was taking bisoprolol and HCTZ at home. She is currently on bisoprolol. Plan * With given D5 water 300 mL in 2 hours will be lower the sodium * Will give to 2 mcg of desmopressin IV to lower the sodium. * Will monitor serum sodium every 4 hours. The goal of correction of serum sodium is 6 to 8 mEq in 24 hours. * Continue CIWA protocol as indicated * Continue current dose of the bisoprolol. Continue hold HCTZ. I would recommend not to resume HCTZupon discharge. * Thanks for consult. Will continue follow-up with you. Please feel free to call us with any question. Documented By: Christopher Aguillon MD 09/22/24 0936 Signed By: 09/22/24 1148 09/22/24 [facility]01 [facility] Note Date/Time September 23, 2024 10:36 am [facility] [address] [place] [address] Nephrology Consult Note Signed with Addenda Patient: Billy Argueta MR#: [id number] : 1965 Acct:[id number] Age/Sex: 59 / F Adm Date: 5 Loc: Room: [address] [place] [address] Type: ADM IN Attending Dr: Khloe Zhang MD Copies to: MD Tara Hummel BEHAVIORAL THERAPY COORDINATOR Khloe Zhang MD~ ADDENDUM1 Patient was seen and examined with the resident on 09/22/2024. Labs were reviewed and plan discussed as below. In summary this is a 59-year-old female was admitted for symptomatic critical hyponatremia and was started on 3% saline. She had a rapid correction and her sodium needs to be lowered to avoid osmotic demyelination. Will monitor serum sodium every 4 hours. Addendum Documented By: Christopher Aguillon MD 09/23/24 1036 Addendum Signed By: <Electronically signed by Christopher Aguillon MD> 09/23/24 1036 Providers Consult Date: 09/22/24 Requesting Provider: Cyrus Ellison MD Primary Care Provider: Tara Ferrari NP-C [facility] Reason for Consult: Hyponatremia History of Present Illness: Ms. Argueta is a 59-year-old female with relevant past medical history of essential hypertension and degenerative disc disease who presented to [facility] ED on 09/21/2024 complaining of persistent lightheadedness. Earlier that day, the patient went to urgent care because of the lightheadedness, and they told her that she had effusion behind her right ear and was found to be hypertensive, andthen sent her home. She then returned to [facility] due to having persistent symptoms of lightheadedness and her head feeling full. Upon arrival to the emergency department, she was found to be hyponatremic with sodium of 118. Upon examining the patient today, she feels a bit better than she felt when she came into the hospital. Sodium has increased to 129 today with potassium 3.7. Upon further questioning with the patient, she does admit to drinking 1-2 beers per day, and then binges during holidays and vacations. She has never been hospitalized for alcohol withdrawal in the past. She does also drink approximately 80 to 100 fluid ounces of water per day. Her diet is not the best, and she admits to low protein intake overall she is ex-smoker smoked for 30 years but quit about 10 years ago. She denies any history of productive cough hemoptysis unintentional weight loss or COPD. Review of Systems Review of Systems All other systems reviewed & are negative unless noted below or in HPI Review of systems: Cardiovascular: denies any chest pain, palpitation Pulmonary: denies any cough, hemoptysis Gastrointestinal: denies any nausea, vomiting, diarrhea Neurological :denies any headache, numbness, weakness Endocrine: denies any polyuria, polydipsia Dermatological: denies any itching or rash [facility] Medical History (Updated 09/22/24 @ 10:31 by Christopher Aguillon MD) High blood pressure Degenerative disc disease History of high blood pressure Surgical History Previous section x2 Hx of ovarian cystectomy History of mandibular surgery 1992 History of lumbar fusion 1998 w/ Dr. Sommers Family History Brother Legacy FamHx Relation: Brother(s); Legacy FamHx Problem: 3 1 brain tumor- Marfan's syndrom- spinal meningitis age 3 Father Mother Social History Smoking Status: Former smoker Substance Use Type: None Meds Medications & Allergies Allergies No Known Allergies Allergy (Verified 09/21/24 15:49) Home Medications bisoprolol 5 mg-hydrochlorothiazide 6.25 mg tablet 1 tab PO DAILY 03/20/24 [History Confirmed 09/21/24] fluticasone propionate 50 mcg/actuation nasal spray,suspension 1 spray intranasal DAILY 14 days #16 grams 09/21/24 [Rx Confirmed 09/21/24] Active Medications: Active Medications Acetaminophen (Acetaminophen 325 Mg Tablet) 650 mg PO Q6HR PRN PRN Reason: Pain Scale 1 - 3 or fever Stop: 09/21/25 18:07 Bisoprolol Fumarate (Bisoprolol 5 Mg Tablet) 5 mg PO DAILY [facility] Stop: 09/22/25 08:59 Last Admin: 09/22/24 09:05 Dose: 5 mg Fluticasone Propionate (Fluticasone Propionate [place] 120 [place]/16 Gm Bottle) 1 spray INTRANASAL DAILY [facility] Stop: 09/22/25 08:59 Last Admin: 09/22/24 09:05 Dose: 1 spray Folic Acid (Folic Acid 1 Mg Tablet) 1 mg PO DAILY [facility] Stop: 09/22/25 08:59 Last Admin: 09/22/24 09:05 Dose: 1 mg Dextrose (5 % Dextrose In Water) 1,000 mls @ 150 mls/hr IV .Q6H40M [facility] Stop: 09/22/24 11:29 Lorazepam (Lorazepam 1 Mg Tablet) 0 mg PO PROTOCOL PRN; Protocol PRN Reason: Alcohol Withdrawal Stop: 03/20/25 18:07 Lorazepam (Lorazepam 2 Mg/Ml Vial) 0 mg IM PROTOCOL PRN; Protocol PRN Reason: Alcohol Withdrawal Stop: 03/20/25 18:07 Multivitamins (Multivitamin 1 Tab Tablet) 1 tab PO DAILY [facility] Stop: 09/22/25 08:59 Last Admin: 09/22/24 09:05 Dose: 1 tab Ondansetron HCl (Ondansetron 4 Mg/2 Ml Vial) 4 mg IV-PUSH Q8H PRN PRN Reason: Nausea And Vomiting Stop: 09/21/25 18:07 Sodium Chloride (Sodium Chloride 0.9 % 10 Ml Syringe) 0 ml IV-PUSH PRN PRN PRN Reason: Flush Stop: 09/21/25 15:48 Last Admin: 09/21/24 16:22 Dose: 10 ml Thiamine HCl (Thiamine 100 Mg Tablet) 100 mg PO BID [facility] Stop: 09/21/25 20:59 Last Admin: 09/22/24 09:05 Dose: 100 mg Exam Physical Exam Vital Signs: Temp Pulse Resp BP Pulse Ox O2 Del Method 97.8 F 75 18 150/72 H 97 Room Air 09/21/24 21:30 09/22/24 08:12 09/22/24 08:12 09/22/24 08:12 09/22/24 08:12 09/22/24 08:20 Narrative: General: Appears comfortable and not in distress Heart: S1-S2, no rub Lung: Bilateral air entry, no wheezing or crackles Abdomen: Soft, positive bowel sounds Extremities: No edema, no cyanosis Head: Atraumatic, normocephalic Ear: No gross hearing Deficit or external ear redness Eyes: No pallor or redness Neck: No JVD or visible mass Skin: No rashes , warm to touch 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,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, 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 Musculoskeletal: No swelling or limitation of movement of the large joints Psychiatric: Cooperative, normal mood and affect Results - Nephrology Labs 09/22/24 05:32 09/22/24 05:32 Labs: 09/21/24 09/21/24 09/22/24 15:50 16:19 00:35 BUN 7 6 L Creatinine 0.66 0.53 L Phosphorus Albumin 4.7 Urine Color Colorless Urine Appearance Clear Urine pH 7.0 Ur Specific Jackson 1.002 Urine Protein Negative Urine Glucose (UA) Normal Urine Ketones Negative Urine Occult Blood Negative Urine Nitrite Negative Ur Leukocyte Esterase Negative 09/22/24 05:32 BUN 6 L Creatinine 0.60 Phosphorus 4.2 Albumin Urine Color Urine Appearance Urine pH Ur Specific Jackson Urine Protein Urine Glucose (UA) Urine Ketones Urine Occult Blood Urine Nitrite Ur Leukocyte Esterase Radiology Impressions Impressions - last 24 hours: Impressions Head CT 09/21/24 16:06 IMPRESSION: No acute intrarenal pathology. 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 Impression dictated by: Alayna Ashford M.D. 09/21/2024 5:07 PM Dictation Location: [place] [address] Any impression(s) listed above is documentation that was entered by the reading physician into a diagnostic report(s) for Billy Argueta. I have reviewed the report(s) and am incorporating any findings in the treatment plan of this patient where applicable. A&P - Nephrology Assessment/Plan (1) Hyponatremia: Assessment/Problem Details: Patient has a hypotonic hyponatremia and appears to be euvolemic on exam. She likely has hyponatremia likely due to the alcoholism and poor osmolar intake with some component of HCTZ. She has a low urine osmolality with high urine sodium but was taking HCTZ. Her serum sodium corrected more 8 mEq in less than 24 hours. Due to her history of alcoholism she will be at risk of osmotic demyelination syndrome so we will reload of the sodium with the D5 water and desmopressin. (2) Alcohol abuse: Assessment/Problem Details: Patient admitted to history of alcohol abuse. She is currently on CIWA protocol. (3) High blood pressure: Assessment/Problem Details: She has a history of hypertension and was taking bisoprolol and HCTZ at home. She is currently on bisoprolol. Plan * With given D5 water 300 mL in 2 hours will be lower the sodium * Will give to 2 mcg of desmopressin IV to lower the sodium. * Will monitor serum sodium every 4 hours. The goal of correction of serum sodium is 6 to 8 mEq in 24 hours. * Continue CIWA protocol as indicated * Continue current dose of the bisoprolol. Continue hold HCTZ. I would recommend not to resume HCTZ upon discharge. * Thanks for consult. Will continue follow-up with you. Please feel free to call us with any question. Documented By: Christopher Aguillon MD 09/22/24 0936 Signed By: <Electronically signed by Christopher Aguillon MD> 09/22/24 1148 <Electronically signed by DO CLYDE Garcia> 09/22/[address] [facility] Work Phone: [place] [id number] Discharge Summary Signed Patient: Billy Argueta MR#: [id number] : 1965 Acct:[id number] Age/Sex: 59 / F Adm Date: 5 Loc: Room: [address] [place] [address]: Khloe Zhang MD Copies to: Tara Ferrari BEHAVIORAL THERAPY COORDINATOR Khloe Zhang MD~ Providers Date of Discharge: 09/24/24 Discharging Provider: Khloe Zhang Primary Care Provider: Tara Ferrari Consults: 09/21/24 18:08 Consult to Nephrology Routine Comment: Consulting Provider: [facility] - Nephrology Has Provider Been Notified: Yes Date of Notification: 09/22/24 Time of Notification: 07:57 Reason for Consult: Hyper/Hypo Natremia Discharge Diagnosis (1) Hyponatremia: (2) Alcohol abuse: (3) High blood pressure: Final Diagnosis Final Discharge Diagnosis: Delutional hyponatremia in view of HCTZ use Hypertension Summary Hospital Course Hospital course: 59 years old female presented with dizziness on and off since Sunday. Upon presentation patient wasnoted to be hypertensive, EKG was done which showed normal sinus without any acute ST-T wave changes. Troponins were minimally elevated. Denied any chest pain any shortness of breath. Denied any syncopal episode. Complains of fullness in her face feels like sinus infection. No known history of coronary artery disease, no known history of DVT/PE. Telemetryrevealed normal sinus without significant arrhythmias. However on admission patient was hypertensive. And was noted to be significantly hyponat remic. Which could probably cause the patient's symptoms. Urine lites suggested delusional hyponatremia. Patient admits that she has been drinking 7 bottles ofwater, and 1-2 bottles of beer. She alsohas been taking hydrochlorothiazide. At this point she was treated with fluid restriction and stopping hydrochlorothiazide. Due to hypertension she was started on clonidine, however patient developedheart rate in 50s, clonidine was stopped and substituted with Norvasc. She recommended to continue with her bisoprolol and Norvasc, to check her blood pressure and to follow-up with nephrology as outpatient. Also she recommended to follow-up with her primary care physician within 1 week. Recommended to repeat BMP in 3 days. Review of system: General - denies any fevers, dizziness, headache Pulmonary - denies any SOB, cough Gastrointestinal - denies any abdominal pain, any nausea, vomiting Cardiovascular - denies any chest pain, palpitations Physical exam: General -awake, alert, oriented ?3, not in acute distress Cardiovascular -S1 with S2, no murmurs, no rubs, no gallops Pulmonary - clear to auscultation bilaterally Gastrointestinal - abdomen is soft, nondistended, nontender, bowel sounds positive, there is no rigidity, no rebound Extremities -no edema Neurological -no focal neurological dysfunction noted Laboratory work up and Imaging studies reviewed electronic device monitor - reviewed EKG - personally reviewed by me. NSR with nonspecific changes Time Spent with Patient Time spent providing/coordinating discharge services (# min): 35 Discharge Plan Discharge Plan Patient Disposition: Home Activity: No Activity Restriction Diet: Regular and Other Comment: Maintain a fluid restriction of 1200 mls per day Instructions: Know your Meds Stand Alone Forms: Work/School Release Form Prescriptions: New bisoprolol fumarate 5 mg Tablet 5 mg PO DAILY 30 Days Qty: 30 3RF amlodipine [Norvasc] 2.5 mg tablet 2.5 mg PO DAILY Qty: 30 0RF Continued fluticasone propionate 50 mcg/actuation spray,suspension 1 spray intranasal DAILY 14 Days Qty: 16 0RF Rx Instructions: administer into each nostril Discontinued bisoprolol-hydrochlorothiazide 5-6.25 mg tablet 1 tab PO DAILY Other Ambulatory Orders: Basic Metabolic Panel (Routine) Timeframe: 3 Days Location: Determined by Patient Ordered By: Khloe Zhang Follow Up: Christopher Aguillon MD [Active Staff] - 10/28/24 9:20 am Tara Ferrari NP-C [Primary Care Provider] - 10/01/24 11:00 am (Post hospital appointment. Please call to reschedule if needed.) Exam Physical Exam Vital Signs: Temp Pulse Resp BP Pulse Ox O2 Del Method 36.4 C 62 18 148/64 H 99 Room Air 09/23/24 19:47 09/24/24 16:25 09/24/24 16:25 09/24/24 16:25 09/24/24 16:25 09/24/24 16:25 Diagnostic Studies Completed and Pending Studies Pending studies at discharge: 09/25/24 05:00 Complete Blood Count Auto Diff IN AM 09/26/24 05:00 Complete Blood Count Auto Diff IN AM 09/27/24 05:00 Complete Blood Count Auto Diff IN AM 09/28/24 05:00 Complete Blood Count Auto Diff IN AM 09/29/24 05:00 Complete Blood Count Auto Diff IN AM 09/30/24 05:00 Complete Blood Count Auto Diff IN AM 10/01/24 05:00 Complete Blood Count Auto Diff IN AM Labs on day of discharge: 09/24/24 04:48: Corrected WBC 4.1, Uncorrected WBC Count 4.1, RBC 3.51 L, Hgb 12.1, Hct 34.4, MCV 97.8, MCH 34.3, MCHC 35.1 H, RDW 12.8, Plt Count 263, MPV 7.4, Neut % (Auto) 46.5, Lymph % (Auto) 34.2, Pike % (Auto) 13.7, Eos % (Auto) 4.4, Baso % (Auto) 1.2, Nucleat RBC Rel Count 0.1, Neut # (Auto)1.9, Lymph # (Auto) 1.4, Pike # (Auto) 0.6, Eos # (Auto) 0.2, Baso # (Auto) 0.0, PHA Creatinine Clear 94.01, Sodium 129 L, Potassium 5.0, Chloride 99, Carbon Hljxvqw97.2, Anion Gap 9.8, BUN 11, Creatinine 0.65, Est GFR (CKD-EPI) > 60.0, Glucose 104 H, Calcium 8.8 09/24/24 00:52: Sodium 129 L 09/23/24 18:02: Sodium 125 L Documented By: Khloe Zhang MD 09/24/241703 Signed By: 09/24/24 1710 [facility] Khloe Zhang [facility] Note Date/Time September 24, 2024 5:10p [facility] ENTER [address] [place] [address] Discharge Summary Signed Patient: Billy Argueta MR#: [id number] : 1965 Acct:[id number] Age/Sex: 59 / F Adm Date: 5 Loc: Room: [address] [place] [address]: Khloe Zhang MD Copies to: Tara Ferrari BEHAVIORAL THERAPY COORDINATOR Khloe Zhang MD~ Providers Date of Discharge: 09/24/24 Discharging Provider: Khloe Zhang Primary Care Provider: Tara Ferrari Consults: 09/21/24 18:08 Consult to Nephrology Routine Comment: Consulting Provider: [facility] - Nephrology Has Provider Been Notified: Yes Date of Notification: 09/22/24 Time of Notification: 07:57 Reason for Consult: Hyper/Hypo Natremia Discharge Diagnosis (1) Hyponatremia: (2) Alcohol abuse: (3) High blood pressure: Final Diagnosis Final Discharge Diagnosis: Delutional hyponatremia in view of HCTZ use Hypertension Summary Hospital Course Hospital course: 59 years old female presented with dizziness on and off since Sunday. Upon presentation patient was noted to be hypertensive, EKG was done which showed normal sinus without any acute ST-T wave changes. Troponins were minimally elevated. Denied any chest pain any shortness of breath. Denied any syncopal episode. Complains of fullness in her face feels like sinus infection. No known history of coronary artery disease, no known history of DVT/PE. Telemetryrevealed normal sinus without significant arrhythmias. However on admission patient was hypertensive. And was noted to be significantly hyponatremic. Which could probably cause the patient's symptoms. Urine lites suggested delusional hyponatremia. Patient admits that she has been drinking 7 bottles ofwater, and 1-2 bottles of beer. She also has been taking hydrochlorothiazide. At this point she was treated with fluid restriction and stopping hydrochlorothiazide. Due to hypertension she was started on clonidine, however patient developed heart rate in 50s, clonidine was stopped and substituted with Norvasc. She recommended to continue with her bisoprolol and Norvasc, to check her blood pressure and to follow-up with nephrology as outpatient. Also she recommended to follow-up with her primary care physician within 1 week. Recommended to repeat BMP in 3 days. Review of system: General - denies any fevers, dizziness, headache Pulmonary - denies any SOB, cough Gastrointestinal - denies any abdominal pain, any nausea, vomiting Cardiovascular - denies any chest pain, palpitations Physical exam: General -awake, alert, oriented ?3, not in acute distress Cardiovascular -S1 with S2, no murmurs, no rubs, no gallops Pulmonary - clear to auscultation bilaterally Gastrointestinal - abdomen is soft, nondistended, nontender, bowel sounds positive, there is no rigidity, no rebound Extremities -no edema Neurological -no focal neurological dysfunction noted Laboratory work up and Imaging studies reviewed electronic device monitor - reviewed EKG - personally reviewed by me. NSR with nonspecific changes Time Spent with Patient Time spent providing/coordinating discharge services (# min): 35 Discharge Plan Discharge Plan Patient Disposition: Home Activity: No Activity Restriction Diet: Regular and Other Comment: Maintain a fluid restriction of 1200 mls per day Instructions: Know your Meds Stand Alone Forms: Work/School Release Form Prescriptions: New bisoprolol fumarate 5 mg Tablet 5 mg PO DAILY 30 Days Qty: 30 3RF amlodipine [Norvasc] 2.5 mg tablet 2.5 mg PO DAILY Qty: 30 0RF Continued fluticasone propionate 50 mcg/actuation spray,suspension 1 spray intranasal DAILY 14 Days Qty: 16 0RF Rx Instructions: administer into each nostril Discontinued bisoprolol-hydrochlorothiazide 5-6.25 mg tablet 1 tab PO DAILY Other Ambulatory Orders: Basic Metabolic Panel (Routine) Timeframe: 3 Days Location: Determined by Patient Ordered By: Khloe Zhang Follow Up: Christopher Aguillon MD [Active Staff] - 10/28/24 9:20 am Tara Ferrari NP-C [Primary Care Provider] - 10/01/24 11:00 am (Post hospital appointment. Please call to reschedule if needed.) Exam Physical Exam Vital Signs: Temp Pulse Resp BP Pulse Ox O2 Del Method 36.4 C 62 18 148/64 H 99 Room Air 09/23/24 19:47 09/24/24 16:25 09/24/24 16:25 09/24/24 16:25 09/24/24 16:25 09/24/24 16:25 Diagnostic Studies Completed and Pending Studies Pending studies at discharge: 09/25/24 05:00 Complete Blood Count Auto Diff IN AM 09/26/24 05:00 Complete Blood Count Auto Diff IN AM 09/27/24 05:00 Complete Blood Count Auto Diff IN AM 09/28/24 05:00 Complete Blood Count Auto Diff IN AM 09/29/24 05:00 Complete Blood Count Auto Diff IN AM 09/30/24 05:00 Complete Blood Count Auto Diff IN AM 10/01/24 05:00 Complete Blood Count Auto Diff IN AM Labs on day of discharge: 09/24/24 04:48: Corrected WBC 4.1, Uncorrected WBC Count 4.1, RBC 3.51 L, Hgb 12.1, Hct 34.4, MCV 97.8, MCH 34.3, MCHC 35.1 H, RDW 12.8, Plt Count 263, MPV 7.4, Neut % (Auto) 46.5, Lymph % (Auto) 34.2, Pike % (Auto) 13.7, Eos % (Auto) 4.4, Baso % (Auto) 1.2, Nucleat RBC Rel Count 0.1, Neut # (Auto) 1.9, Lymph # (Auto) 1.4, Pike # (Auto) 0.6, Eos # (Auto) 0.2, Baso # (Auto) 0.0, PHA Creatinine Clear 94.01, Sodium 129 L, Potassium 5.0, Chloride 99, Carbon Blfjkoo30.2, Anion Gap 9.8, BUN 11, Creatinine 0.65, Est GFR (CKD-EPI) > 60.0, Glucose 104 H, Calcium 8.8 09/24/24 00:52: Sodium 129 L 09/23/24 18:02: Sodium 125 L Documented By: Khloe Zhang MD 09/24/24 1704 Signed By: <Electronically signed by Khloe Zhang MD> 09/24/[address] [facility] Work Phone: Evaluation + Plan note No data available for this section [facility] Future Appointments Appointment Date:05/10/2023 08:00:00 AM Scheduled Provider: Location:[facility] Surgical [facility] App[facility]ment Type:[facility] Diagnosis Spinal stenosis in cervical region Radiculopathy, cervical region Brachial neuritis or radiculitis nos Cervicalgia documented in this encounter [facility] noteNo assessment information [facility] Work Phone: History general Narrative - Reported* Type Description Date Medical History ovarian cysts Medical History degenerative disc disease Medical History high blood pressure Surgical History ruptured ovarian cyst 1984 Surgical History back fusion 1997 Surgical History ovarian cyst 1994 Surgical History jaw surgery 1992 Surgical History back surgery Surgical History jaw surgery Surgical History Hospitalization History see surgical hx [employer] [employer] Other Hospital Discharge instructions No data available for this section [facility] No data available for this section [facility] [place] [address] Hospitalist Progress Note Signed Patient: Billy Argueta MR#: [id number] : 1965 Acct:[id number] Age/Sex: 59 / F Adm Date: 5 Loc: Room: [address] [place] [address] Type: ADM IN Attending Dr: Cyrus Ellison MD Copies to: ~ Date of Service: 09/22/2024 Subjective Subjective Narrative: Patient was standing and walking around and mentioned that her symptoms are muchbetter. Sodium today was 129. Exam Physical Exam Vital Signs: Temp Pulse Resp BP Pulse Ox O2 Del Method 97.7 F 68 18 135/69 98 Room Air 09/22/24 12:00 09/22/24 12:00 09/22/24 12:00 09/22/24 12:00 09/22/24 12:00 09/22/24 12:00 Narrative: General: Awake alert, no acute distress HEENT: head atraumatic, normocephalic, moist mucous membranes Neck: supple no masses, no lymphadenopathy CVS: regular rate and rhythm, no murmurs or gallops Respiratory: clear to auscultation bilaterally, no wheezing or crackles, symmetric expansion GI: soft, nondistended, nontender, positive bowel sounds with no organomegaly Extremity: moves all extremities, no restrictions of movements, no calf tenderness Neuro: AOx3, CN II-VII intact. Moves all extremities in all planes of motion. Skin: intact no rashes or lesions Objective Lab Results 09/22/24 05:32 09/22/24 11:11 Meds Allergies and Active Meds Allergies No Known Allergies Allergy (Verified 09/21/24 15:49) Active Meds: Active Medications Generic Name Dose Route Start Last Admin Trade Name Freq PRN Reason Stop Dose Admin Acetaminophen 650 mg 09/21/24 18:08 09/22/24 12:10 Acetaminophen 325 Mg Tablet PO 09/21/25 18:07 650 mg Q6HR PRN Administration Pain Scale 1 - 3 or fever Bisoprolol Fumarate 5 mg 09/22/24 09:00 09/22/24 09:05 Bisoprolol 5 Mg Tablet PO 09/22/25 08:59 5 mg DAILY ALEXX Administration Fluticasone Propionate 1 spray 09/22/24 09:00 09/22/24 09:05 Fluticasone Propionate [place] 120 [place]/16 Gm Bottle INTRANASAL 09/22/25 08:59 1 spray DAILY ALEXX Administration Folic Acid 1 mg 09/22/24 09:00 09/22/24 09:05 Folic Acid 1 Mg Tablet PO 09/22/25 08:59 1 mg DAILY ALEXX Administration Lorazepam 0 mg 09/21/24 18:08 Lorazepam 1 Mg Tablet PO 03/20/25 18:07 PROTOCOL PRN Alcohol Withdrawal Protocol Lorazepam 0 mg 09/21/24 18:08 Lorazepam 2 Mg/Ml Vial IM 03/20/25 18:07 PROTOCOL PRN Alcohol Withdrawal Protocol Multivitamins 1 tab 09/22/24 09:00 09/22/24 09:05 Multivitamin 1 Tab Tablet PO 09/22/25 08:59 1 tab DAILY ALEXX Administration Ondansetron HCl 4 mg 09/21/24 18:08 Ondansetron 4 Mg/2 Ml Vial IV-PUSH 09/21/25 18:07 Q8H PRN Nausea And Vomiting Sodium Chloride 0 ml 09/21/24 15:49 09/21/24 16:22 Sodium Chloride 0.9 % 10 Ml Syringe IV-PUSH 09/21/25 15:48 10 ml PRN PRN Administration Flush Thiamine HCl 100 mg 09/21/24 21:00 09/22/24 09:05 Thiamine 100 Mg Tablet PO 09/21/25 20:59 100 mg BID ALEXX Administration A&P - Hospitalist Assessment/Plan (1) Hyponatremia: Plan This is a 59-year-old female with significant past medical history of hypertension,, allergic rhinitis who presented to [facility] ED for concern for lightheadedness. She mentions that she went to urgentcare today and was told that she has effusion in her ears and was found to be hypertensive there and was sent home. She denies any ear ache or discharge fromthe ear. Denies any fever or chills. Mentions that she drinks alcohol almost every day around 1-2 beers. Does not smoke currently. Denies any cough sore throat or runny nose. In the ED she was found to be hypertensive. Lab work shows normal WBC, hemoglobin 13.1, sodium 118 with potassium 3.7 and chloride was 83. Normal RFT and LFT urinalysis necessity of UTI urine tox pending patient got 1 L of normal saline in the ED. urine tox negative. Plan: - Admit in the regular nursing floor with telemetry - Nephrology started on D5 and desmopressin to slow down increasing sodium level. - Recommended more frequent BMP every 4 hours. Recommended to discontinue hydrochlorothiazide on discharge. - Follow-up workup for hyponatremia-serum osmolality, urine osmolality and urinesodium - Target increase in sodium level would be around 4 to 6 mEq in 24 hours - Also started on CIWA protocol with initiation of thiamine, folic acid for alcohol abuse - Nephrology consulted for hyponatremia-appreciate recommendation - Follow-up morning labs - Continue bisoprolol will hold on hydrochlorothiazide in setting of hyponatremia - Continue fluticasone - Full code - SCD for DVT prophylaxis Documented By: Cyrus Ellison MD 09/22/24 1450 Signed By: 09/22/24 4517 [facility] [place] [id number] Nephrology Progress Note Signed Patient: Billy Argueta MR#: [id number] : 1965 Acct:[id number] Age/Sex: 59 / F Adm Date: 5 Loc: Room: [address] [place] [address] Type: ADM IN Attending Dr: Khloe Zhang MD Copies to: ~ Date of Service: 09/23/2024 Subjective Subjective Narrative: Ms. Argueta is a 59-year-old female with relevant past medical history of essential hypertension and degenerative disc disease who presented to [facility] ED on 09/21/2024 complaining of persistent lightheadedness. Earlier that day, the patient went to urgent care because of the lightheadedness, and theytold her that she had effusion behind her right ear and was found to be hypertensive, andthen sent her home. She then returned to [facility] due to having persistent symptoms of lightheadedness and her head feeling full. Upon arrival to the emergency department, she was foundto be hyponatremic with sodium of 118. Upon examining the patient today, she feels a bit better than she felt when she came into the hospital. Sodium has increased to 129 today with potassium 3.7. Upon further questioning with the patient, she does admit to drinking 1-2 beers per day, and then binges during holidays and vacations. Shehas never been hospitalized for alcohol withdrawal in the past. She does also drink approximately 80 to 100 fluid ounces of water per day. Her diet is not the best, and she admits to low protein intake overall she is ex-smoker smoked for 30 years but quit about 10 years ago. She denies any history of productive cough hemoptysis unintentional weight loss or COPD. Interim history Patient was seen and examined at bedside. She is feeling better today denies any chest pain palpation cough nausea without any shortness of breath. She was started on clonidine by the hospitalist team. 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,Alert, 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 Musculoskeletal: No swelling or limitation of movement of the large joints Psychiatric: Cooperative, normal mood and affect Objective Intake and Output I&O: Intake & Output 09/20/24 09/21/24 09/22/24 09/23/24 23:59 23:59 23:59 23:59 Intake Total 1000 / 1000 450 / 450 180 / 180 Output Total 1150 / 1150 650 / 650 Balance 1000 / 1000 -700 / -700 -470 / -470 Weight 63.9 kg 63.5 kg 65 kg Meds and Allergies Meds: Active Medications Acetaminophen (Acetaminophen 325 Mg Tablet) 650 mg PO Q6HR PRN PRN Reason: Pain Scale 1 - 3 or fever Stop: 09/21/25 18:07 Last Admin: 09/22/24 12:10 Dose: 650 mg Bisoprolol Fumarate (Bisoprolol 5 Mg Tablet) 5 mg PO DAILY ALEXX Stop: 09/22/25 08:59 Last Admin: 09/23/24 08:12 Dose: 5 mg Clonidine HCl (Clonidine 0.2 Mg Tablet) 0.2 mg PO BID ALEXX Stop: 09/22/25 17:59 Last Admin: 09/23/24 08:12 Dose: 0.2 mg Fluticasone Propionate (Fluticasone Propionate [place] 120 [place]/16 Gm Bottle) 1 spray INTRANASAL DAILY ALEXX Stop: 09/22/25 08:59 Last Admin: 09/23/24 08:13 Dose: 1 spray Folic Acid (Folic Acid 1 Mg Tablet) 1 mg PO DAILY ALEXX Stop: 09/22/25 08:59 Last Admin: 09/23/24 08:12 Dose: 1 mg Lorazepam (Lorazepam 1 Mg Tablet) 0 mg PO PROTOCOL PRN; Protocol PRN Reason: Alcohol Withdrawal Stop: 03/20/25 18:07 Lorazepam (Lorazepam 2 Mg/Ml Vial) 0 mg IM PROTOCOL PRN; Protocol PRN Reason: Alcohol Withdrawal Stop: 03/20/25 18:07 Multivitamins (Multivitamin 1 Tab Tablet) 1 tab PO DAILY ALEXX Stop: 09/22/25 08:59 Last Admin: 09/23/24 08:13 Dose: 1 tab Ondansetron HCl (Ondansetron 4 Mg/2 Ml Vial) 4 mg IV-PUSH Q8H PRN PRN Reason: Nausea And Vomiting Stop: 09/21/25 18:07 Sodium Chloride (Sodium Chloride 0.9 % 10 Ml Syringe) 0 ml IV-PUSH PRN PRN PRN Reason: Flush Stop: 09/21/25 15:48 Last Admin: 09/21/24 16:22 Dose: 10 ml Thiamine HCl (Thiamine 100 Mg Tablet) 100 mg PO BID ALEXX Stop: 09/21/25 20:59 Last Admin: 09/23/24 08:13 Dose: 100 mg Allergies No Known Allergies Allergy (Verified 09/21/24 15:49) Results - Nephrology Labs 09/23/24 04:53 09/23/24 07:40 Labs: 09/23/24 07:40 BUN 8 Creatinine 0.55 L Phosphorus 3.6 Albumin 4.1 Radiology Impressions Impressions - last 24 hours: Impressions Chest X-Ray 09/22/24 10:32 IMPRESSION: NO ACUTE CARDIOPULMONARY ABNORMALITY. Impression dictated by: Lucy Mcdaniel M.D. 09/22/2024 12:47 PM Dictation Location: [place] [address] Any impression(s) listed above is documentation that was entered by the reading physician into a diagnostic report(s) for Billy Argueta. I have reviewed the report(s) and am incorporating any findings in the treatment plan of this patient where applicable. A&P - Nephrology Assessment/Plan (1) Hyponatremia: Assessment/Problem Details: Patient has a hypotonic hyponatremia and appears to be euvolemic on exam. She likely has hyponatremia likely due to the alcoholism and poor osmolar intake with some component of HCTZ. She has a low urine osmolality with high urine sodium but was taking HCTZ. Her serum sodium corrected more 8 mEq inless than 24 hours. Due to her history of alcoholism she will be at risk of osmotic demyelination syndrome so we will reload of the sodium with the D5 water and desmopressin. She has no evidence of hypothyroidism. (2) Alcohol abuse: Assessment/Problem Details: Patient admitted to history of alcohol abuse. She is currently on CIWA protocol. (3) High blood pressure: Assessment/Problem Details: She has a history of hypertension and was taking bisoprolol and HCTZ at home. She is currently on bisoprolol. Plan * Her serum sodium is within the acceptable range. Will continue fluid restriction 1 L a day. No need for salt tablet or urea. * Will monitor serum sodium every 6 hours. The goal of correction of serum sodium is 6 to 8 mEq in 24 hours. * Continue CIWA protocol as indicated * Continue current dose of the bisoprolol. Continue hold HCTZ. I would recommend not to resume HCTZupon discharge. * Will also check serum cortisol to rule out adrenal insufficiency. Documented By: Christopher Aguillon MD 09/23/24 1128 Signed By: 09/23/24 1131 [facility] [place] [address] Hospitalist Progress Note Signed Patient: Billy Argueta MR#: [id number] : 1965 Acct:[id number] Age/Sex: 59 / F Adm Date: 5 Loc: Room: [address] [place] [address] Type: ADM IN Attending Dr: Khloe Zhang MD Copies to: ~ Date of Service: 09/23/2024 Subjective Subjective Narrative: Patient has been seen and examined today. She is feeling better Denies any nausea, headache improved, denies any abdominal pain, tolerating p.o.intake well dizziness improved' Physical exam: General -awake, alert, oriented ?3, not in acute distress Cardiovascular -S1 with S2, no murmurs, no rubs, no gallops Pulmonary - clear to auscultation bilaterally Gastrointestinal - abdomen is soft, nondistended, nontender, bowel sounds positive, there is no rigidity, no rebound Extremities -no edema Neurological -no focal neurological dysfunction noted Exam Physical Exam Vital Signs: Temp Pulse Resp BP Pulse Ox O2 Del Method 36.6 C 58 L 18 120/57 L 97 Room Air 09/23/24 08:00 09/23/24 11:53 09/23/24 11:53 09/23/24 11:53 09/23/24 11:53 09/23/24 11:53 Objective Lab Results 09/23/24 04:53 09/23/24 07:40 Meds Allergies and Active Meds Allergies No Known Allergies Allergy (Verified 09/21/24 15:49) Active Meds: Active Medications Generic Name Dose Route Start Last Admin Trade Name Freq PRN Reason Stop Dose Admin Acetaminophen 650 mg 09/21/24 18:08 09/22/24 12:10 Acetaminophen 325 Mg Tablet PO 09/21/25 18:07 650 mg Q6HR PRN Administration Pain Scale 1 - 3 or fever Bisoprolol Fumarate 5 mg 09/22/24 09:00 09/23/24 08:12 Bisoprolol 5 Mg Tablet PO 09/22/25 08:59 5 mg DAILY ALEXX Administration Clonidine HCl 0.2 mg 09/22/24 18:00 09/23/24 08:12 Clonidine 0.2 Mg Tablet PO 09/22/25 17:59 0.2 mg BID ALEXX Administration Fluticasone Propionate 1 spray 09/22/24 09:00 09/23/24 08:13 Fluticasone Propionate [place] 120 [place]/16 Gm Bottle INTRANASAL 09/22/25 08:59 1 spray DAILY ALEXX Administration Folic Acid 1 mg 09/22/24 09:00 09/23/24 08:12 Folic Acid 1 Mg Tablet PO 09/22/25 08:59 1 mg DAILY ALEXX Administration Lorazepam 0 mg 09/21/24 18:08 Lorazepam 1 Mg Tablet PO 03/20/25 18:07 PROTOCOL PRN Alcohol Withdrawal Protocol Lorazepam 0 mg 09/21/24 18:08 Lorazepam 2 Mg/Ml Vial IM 03/20/25 18:07 PROTOCOL PRN Alcohol Withdrawal Protocol Multivitamins 1 tab 09/22/24 09:00 09/23/24 08:13 Multivitamin 1 Tab Tablet PO 09/22/25 08:59 1 tab DAILY ALEXX Administration Ondansetron HCl 4 mg 09/21/24 18:08 Ondansetron 4 Mg/2 Ml Vial IV-PUSH 09/21/25 18:07 Q8H PRN Nausea And Vomiting Sodium Chloride 0 ml 09/21/24 15:49 09/21/24 16:22 Sodium Chloride 0.9 % 10 Ml Syringe IV-PUSH 09/21/25 15:48 10 ml PRN PRN Administration Flush Thiamine HCl 100 mg 09/21/24 21:00 09/23/24 08:13 Thiamine 100 Mg Tablet PO 09/21/25 20:59 100 mg BID ALEXX Administration A&P - Hospitalist Assessment/Plan (1) Hyponatremia: Plan 1. Hypotonic hyponatremia in view of HCTZ use Slowly improving, symptoms improving TSH okay, cortisol pending 2. Hypertension, blood pressure improved Will DC HCTZ and discharged 3. DVT prophylaxis SCDs Documented By: Khloe Zhang MD 09/23/24 1328 Signed By: 09/23/24 1339 [facility] [place] [address] Nephrology Progress Note Signed Patient: Billy Argueta MR#: [id number] : 1965 Acct:[id number] Age/Sex: 59 / F Adm Date: 5 Loc: Room: [address] [place] [address] Type: ADM IN Attending Dr: Khloe Zhang MD Copies to: ~ Date of Service: 09/24/2024 Subjective Subjective Narrative: Ms. Argueta is a 59-year-old female with relevant past medical history of essential hypertension and degenerative disc disease who presented to [facility] ED on 09/21/2024 complaining of persistent lightheadedness. Earlier that day, the patient went to urgent care because of the lightheadedness, and theytold her that she had effusion behind her right ear and was found to be hypertensive, andthen sent her home. She then returned to [facility] due to having persistent symptoms of lightheadedness and her head feeling full. Upon arrival to the emergency department, she was foundto be hyponatremic with sodium of 118. Upon examining the patient today, she feels a bit better than she felt when she came into the hospital. Sodium has increased to 129 today with potassium 3.7. Upon further questioning with the patient, she does admit to drinking 1-2 beers per day, and then binges during holidays and vacations. Shehas never been hospitalized for alcohol withdrawal in the past. She does also drink approximately 80 to 100 fluid ounces of water per day. Her diet is not the best, and she admits to low protein intake overall she is ex-smoker smoked for 30 years but quit about 10 years ago. She denies any history of productive cough hemoptysis unintentional weight loss or COPD. Interim history Patient was seen and examined at bedside. Denies any chest pain function cough nausea without any shortness of breath. She reported to be compliant with her fluid restriction. 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,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, 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 Musculoskeletal: No swelling or limitation of movement of the large joints Psychiatric: Cooperative, normal mood and affect Objective Intake and Output I&O: Intake & Output 09/21/24 09/22/24 09/23/24 09/24/24 23:59 23:59 23:59 23:59 Intake Total 1000 / 1000 450 / 450 780 / 780 200 / 200 Output Total 1150 / 1150 1550 / 1550 750 / 750 Balance 1000 / 1000 -700 / -700 -770 / -770 -550 / -550 Weight 63.9 kg 63.5 kg 65 kg 64.7 kg Meds and Allergies Meds: Active Medications Acetaminophen (Acetaminophen 325 Mg Tablet) 650 mg PO Q6HR PRN PRN Reason: Pain Scale 1 - 3 or fever Stop: 09/21/25 18:07 Last Admin: 09/22/24 12:10 Dose: 650 mg Bisoprolol Fumarate (Bisoprolol 5 Mg Tablet) 5 mg PO DAILY [facility] Stop: 09/22/25 08:59 Last Admin: 09/23/24 08:12 Dose: 5 mg Clonidine HCl (Clonidine 0.2 Mg Tablet) 0.2 mg PO BID [facility] Stop: 09/22/25 17:59 Last Admin: 09/24/24 09:00 Dose: 0.2 mg Fluticasone Propionate (Fluticasone Propionate [place] 120 [place]/16 Gm Bottle) 1 spray INTRANASAL DAILY [facility] Stop: 09/22/25 08:59 Last Admin: 09/24/24 09:00 Dose: 1 spray Folic Acid (Folic Acid 1 Mg Tablet) 1 mg PO DAILY [facility] Stop: 09/22/25 08:59 Last Admin: 09/24/24 09:00 Dose: 1 mg Lorazepam (Lorazepam 1 Mg Tablet) 0 mg PO PROTOCOL PRN; Protocol PRN Reason: Alcohol Withdrawal Stop: 03/20/25 18:07 Lorazepam (Lorazepam 2 Mg/Ml Vial) 0 mg IM PROTOCOL PRN; Protocol PRN Reason: Alcohol Withdrawal Stop: 03/20/25 18:07 Multivitamins (Multivitamin 1 Tab Tablet) 1 tab PO DAILY [facility] Stop: 09/22/25 08:59 Last Admin: 09/24/24 09:00 Dose: 1 tab Ondansetron HCl (Ondansetron 4 Mg/2 Ml Vial) 4 mg IV-PUSH Q8H PRN PRN Reason: Nausea And Vomiting Stop: 09/21/25 18:07 Sodium Chloride (Sodium Chloride 0.9 % 10 Ml Syringe) 0 ml IV-PUSH PRN PRN PRN Reason: Flush Stop: 09/21/25 15:48 Last Admin: 09/21/24 16:22 Dose: 10 ml Thiamine HCl (Thiamine 100 Mg Tablet) 100 mg PO BID [facility] Stop: 09/21/25 20:59 Last Admin: 09/24/24 09:00 Dose: 100 mg Allergies No Known Allergies Allergy (Verified 09/21/24 15:49) Results - Nephrology Labs 09/24/24 04:48 09/24/24 04:48 Labs: 09/24/24 04:48 BUN 11 Creatinine 0.65 Radiology Impressions Impressions - last 24 hours: Any impression(s) listed above is documentation that was entered by the reading physician into a diagnostic report(s) for Billy Argueta. I have reviewed the report(s) and am incorporating any findings in the treatment plan of this patient where applicable. A&P - Nephrology Assessment/Plan (1) Hyponatremia: Assessment/Problem Details: Patient has a hypotonic hyponatremia and appears to be euvolemic on exam. She likely has hyponatremia likely due to the alcoholism and poor osmolar intake with some component of HCTZ. She has a low urine osmolality with high urine sodium but was taking HCTZ. Her serum sodium corrected more 8 mEq inless than 24 hours. Due to her history of alcoholism she will be at risk of osmotic demyelination syndrome so we will reload of the sodium with the D5 water and desmopressin. She has no evidence of hypothyroidism. (2) Alcohol abuse: Assessment/Problem Details: Patient admitted to history of alcohol abuse. She is currently on CIWA protocol. (3) High blood pressure: Assessment/Problem Details: She has a history of hypertension and was taking bisoprolol and HCTZ at home. She is currently on bisoprolol. Plan * Her serum sodium is within the acceptable range. Will continue fluid restriction 40 ounces a day. * Continue current dose of the bisoprolol. Continue hold HCTZ. I would recommend not to resume HCTZupon discharge. * Consider to stop clonidine and start Amlodipine 2.5 mg * Ok to discharge from renal standpoint * Renal function in 3 days after discharge. Outpatient follow up in 4-6 weeks Documented By: Christopher Aguillon MD 09/24/24 0957 Signed By: 09/24/24 1330 [facility] Khloe Zhang [facility] Note Date/Time September 23, 2024 1:39p m [facility] [address] [place] [address] Hospitalist Progress Note Signed Patient: Billy Argueta MR#: [id number] : 1965 Acct:[id number] Age/Sex: 59 / F Adm Date: 5 Loc: 4 Room: [address] [place] [address] Type: ADM IN Attending Dr: Khloe Zhang MD Copies to: ~ Date of Service: 09/23/2024 Subjective Subjective Narrative: Patient has been seen and examined today. She is feeling better Denies any nausea, headache improved, denies any abdominal pain, tolerating p.o.intake well dizziness improved' Physical exam: General -awake, alert, oriented ?3, not in acute distress Cardiovascular -S1 with S2, no murmurs, no rubs, no gallops Pulmonary - clear to auscultation bilaterally Gastrointestinal - abdomen is soft, nondistended, nontender, bowel sounds positive, there is no rigidity, no rebound Extremities -no edema Neurological -no focal neurological dysfunction noted Exam Physical Exam Vital Signs: Temp Pulse Resp BP Pulse Ox O2 Del Method 36.6 C 58 L 18 120/57 L 97 Room Air 09/23/24 08:00 09/23/24 11:53 09/23/24 11:53 09/23/24 11:53 09/23/24 11:53 09/23/24 11:53 Objective Lab Results 09/23/24 04:53 09/23/24 07:40 Meds Allergies and Active Meds Allergies No Known Allergies Allergy (Verified 09/21/24 15:49) Active Meds: Active Medications Generic Name Dose Route Start Last Admin Trade Name Freq PRN Reason Stop Dose Admin Acetaminophen 650 mg 09/21/24 18:08 09/22/24 12:10 Acetaminophen 325 Mg Tablet PO 09/21/25 18:07 650 mg Q6HR PRN Administration Pain Scale 1 - 3 or fever Bisoprolol Fumarate 5 mg 09/22/24 09:00 09/23/24 08:12 Bisoprolol 5 Mg Tablet PO 09/22/25 08:59 5 mg DAILY [facility] Administration Clonidine HCl 0.2 mg 09/22/24 18:00 09/23/24 08:12 Clonidine 0.2 Mg Tablet PO 09/22/25 17:59 0.2 mg BID ALEXX Administration Fluticasone Propionate 1 spray 09/22/24 09:00 09/23/24 08:13 Fluticasone Propionate [place] 120 [place]/16 Gm Bottle INTRANASAL 09/22/25 08:59 1 spray DAILY [facility] Administration Folic Acid 1 mg 09/22/24 09:00 09/23/24 08:12 Folic Acid 1 Mg Tablet PO 09/22/25 08:59 1 mg DAILY [facility] Administration Lorazepam 0 mg 09/21/24 18:08 Lorazepam 1 Mg Tablet PO 03/20/25 18:07 PROTOCOL PRN Alcohol Withdrawal Protocol Lorazepam 0 mg 09/21/24 18:08 Lorazepam 2 Mg/Ml Vial IM 03/20/25 18:07 PROTOCOL PRN Alcohol Withdrawal Protocol Multivitamins 1 tab 09/22/24 09:00 09/23/24 08:13 Multivitamin 1 Tab Tablet PO 09/22/25 08:59 1 tab DAILY [facility] Administration Ondansetron HCl 4 mg 09/21/24 18:08 Ondansetron 4 Mg/2 Ml Vial IV-PUSH 09/21/25 18:07 Q8H PRN Nausea And Vomiting Sodium Chloride 0 ml 09/21/24 15:49 09/21/24 16:22 Sodium Chloride 0.9 % 10 Ml Syringe IV-PUSH 09/21/25 15:48 10 ml PRN PRN Administration Flush Thiamine HCl 100 mg 09/21/24 21:00 09/23/24 08:13 Thiamine 100 Mg Tablet PO 09/21/25 20:59 100 mg BID ALEXX Administration A&P - Hospitalist Assessment/Plan (1) Hyponatremia: Plan 1. Hypotonic hyponatremia in view of HCTZ use Slowly improving, symptoms improving TSH okay, cortisol pending 2. Hypertension, blood pressure improved Will DC HCTZ and discharged 3. DVT prophylaxis SCDs Documented By: Khloe Zhang MD 09/23/24 1328 Signed By: <Electronically signed by Khloe Zhang MD> 09/23/24 1337 [facility] Work Phone: Progress note Author Christopher Aguillon [facility] Note Date/Time September 24, 2024 1:30p m [facility] [address] [place] [address] Nephrology Progress Note Signed Patient: Billy Argueta MR#: [id number] : 1965 Acct:[id number] Age/Sex: 59 / F Adm Date: 5 Loc: 4P Room: [address] [place] [address] Type: ADM IN Attending Dr: Khloe Zhang MD Copies to: ~ Date of Service: 09/24/2024 Subjective Subjective Narrative: Ms. Argueta is a 59-year-old female with relevant past medical history of essential hypertension and degenerative disc disease who presented to [facility] ED on 09/21/2024 complaining of persistent lightheadedness. Earlier that day, the patient went to urgent care because of the lightheadedness, and they told her that she had effusion behind her right ear and was found to be hypertensive, andthen sent her home. She then [facility] due to having persistent symptoms of lightheadedness and her head feeling full. Upon arrival to the emergency department, she was found to be hyponatremic with sodium of 118. Upon examining the patient today, she feels a bit better than she felt when she came into the hospital. Sodium has increased to 129 today with potassium 3.7. Upon further questioning with the patient, she does admit to drinking 1-2 beers per day, and then binges during holidays and vacations. She has never been hospitalized for alcohol withdrawal in the past. She does also drink approximately 80 to 100 fluid ounces of water per day. Her diet is not the best, and she admits to low protein intake overall she is ex-smoker smoked for 30 years but quit about 10 years ago. She denies any history of productive cough hemoptysis unintentional weight loss or COPD. Interim history Patient was seen and examined at bedside. Denies any chest pain function cough nausea without any shortness of breath. She reported to be compliant with her fluid restriction. 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,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, 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 Musculoskeletal: No swelling or limitation of movement of the large joints Psychiatric: Cooperative, normal mood and affect Objective Intake and Output I&O: Intake & Output 09/21/24 09/22/24 09/23/24 09/24/24 23:59 23:59 23:59 23:59 Intake Total 1000 / 1000 450 / 450 780 / 780 200 / 200 Output Total 1150 / 1150 1550 / 1550 750 / 750 Balance 1000 / 1000 -700 / -700 -770 / -770 -550 / -550 Weight 63.9 kg 63.5 kg 65 kg 64.7 kg Meds and Allergies Meds: Active Medications Acetaminophen (Acetaminophen 325 Mg Tablet) 650 mg PO Q6HR PRN PRN Reason: Pain Scale 1 - 3 or fever Stop: 09/21/25 18:07 Last Admin: 09/22/24 12:10 Dose: 650 mg Bisoprolol Fumarate (Bisoprolol 5 Mg Tablet) 5 mg PO DAILY [facility] Stop: 09/22/25 08:59 Last Admin: 09/23/24 08:12 Dose: 5 mg Clonidine HCl (Clonidine 0.2 Mg Tablet) 0.2 mg PO BID [facility] Stop: 09/22/25 17:59 Last Admin: 09/24/24 09:00 Dose: 0.2 mg Fluticasone Propionate (Fluticasone Propionate [place] 120 [place]/16 Gm Bottle) 1 spray INTRANASAL DAILY [facility] Stop: 09/22/25 08:59 Last Admin: 09/24/24 09:00 Dose: 1 spray Folic Acid (Folic Acid 1 Mg Tablet) 1 mg PO DAILY [facility] Stop: 09/22/25 08:59 Last Admin: 09/24/24 09:00 Dose: 1 mg Lorazepam (Lorazepam 1 Mg Tablet) 0 mg PO PROTOCOL PRN; Protocol PRN Reason: Alcohol Withdrawal Stop: 03/20/25 18:07 Lorazepam (Lorazepam 2 Mg/Ml Vial) 0 mg IM PROTOCOL PRN; Protocol PRN Reason: Alcohol Withdrawal Stop: 03/20/25 18:07 Multivitamins (Multivitamin 1 Tab Tablet) 1 tab PO DAILY [facility] Stop: 09/22/25 08:59 Last Admin: 09/24/24 09:00 Dose: 1 tab Ondansetron HCl (Ondansetron 4 Mg/2 Ml Vial) 4 mg IV-PUSH Q8H PRN PRN Reason: Nausea And Vomiting Stop: 09/21/25 18:07 Sodium Chloride (Sodium Chloride 0.9 % 10 Ml Syringe) 0 ml IV-PUSH PRN PRN PRN Reason: Flush Stop: 09/21/25 15:48 Last Admin: 09/21/24 16:22 Dose: 10 ml Thiamine HCl (Thiamine 100 Mg Tablet) 100 mg PO BID [facility] Stop: 09/21/25 20:59 Last Admin: 09/24/24 09:00 Dose: 100 mg Allergies No Known Allergies Allergy (Verified 09/21/24 15:49) Results - Nephrology Labs 09/24/24 04:48 09/24/24 04:48 Labs: 09/24/24 04:48 BUN 11 Creatinine 0.65 Radiology Impressions Impressions - last 24 hours: Any impression(s) listed above is documentation that was entered by the reading physician into a diagnostic report(s) for Billy Argueta. I have reviewed the report(s) and am incorporating any findings in the treatment plan of this patient where applicable. A&P - Nephrology Assessment/Plan (1) Hyponatremia: Assessment/Problem Details: Patient has a hypotonic hyponatremia and appears to be euvolemic on exam. She likely has hyponatremia likely due to the alcoholism and poor osmolar intake with some component of HCTZ. She has a low urine osmolality with high urine sodium but was taking HCTZ. Her serum sodium corrected more 8 mEq in less than 24 hours. Due to her history of alcoholism she will be at risk of osmotic demyelination syndrome so we will reload of the sodium with the D5 water and desmopressin. She has no evidence of hypothyroidism. (2) Alcohol abuse: Assessment/Problem Details: Patient admitted to history of alcohol abuse. She is currently on CIWA protocol. (3) High blood pressure: Assessment/Problem Details: She has a history of hypertension and was taking bisoprolol and HCTZ at home. She is currently on bisoprolol. Plan * Her serum sodium is within the acceptable range. Will continue fluid restriction 40 ounces a day. * Continue current dose of the bisoprolol. Continue hold HCTZ. I would recommend not to resume HCTZ upon discharge. * Consider to stop clonidine and start Amlodipine 2.5 mg * Ok to discharge from renal standpoint * Renal function in 3 days after discharge. Outpatient follow up in 4-6 weeks Documented By: Christopher Aguillon MD 09/24/24 0957 Signed By: <Electronically signed by Christopher Aguillon MD> 09/24/24 8010 [facility] Work Phone: Summary Purpose Family History Relationship Condition Age at Onset Recorded Date/T crystal brother Unknown father Unknown mother Unknown Advance Directives Advance Directive Response Recorded Date/ Time Advance Directives No March 07, 2024 2:59pm Advance Directive Response Recorded Date/ Time Advance Directives No March 07, 2024 3:59pm Chief Complaint and Reason for Visit Chief Complaint Admit Date Spinal stenosis, cervical region Novembe 2023 1:02pm M54.12 March 25, 2024 5:26pm Reason for Visit Admit Date Cervical radiculopathy March 20 1:02pm Left upper limb pain March 20, 2024 1:02pm Chief Complaint Admit Date sinus pressure, ear pain September 21, 2024 11:03am Chief Complaint Admit Date sinus pressure, ear pain September 21, 2024 11:03am dizzy spells September 21, 2024 6:01p m Reason for Visit Admit Date Acute effusion of both middle ears September 112024 11:03am Acute sinusitis September 21, 2024 11:03 am Hyponatremia September 21, 2024 6:01p m Additional Source Comments INFORMATION SOURCE (unrecogn ized section and content) DATE CREATED AUTHOR 08/18/2019 [employer] DATE CREATED AUTHOR AUTHOR'S ORGANIZ ATION 07/09/2021 [facility] DATE CREATED AUTHOR AUTHOR'S ORGANIZ ATION 10/15/2021 [facility] DATE CREATED AUTHOR AUTHOR'S ORGANIZ ATION 10/21/2021 [facility] DATE CREATED AUTHOR AUTHOR'S ORGANIZ ATION 05/12/2023 [facility] EPIC DATE CREATED AUTHOR AUTHOR'S ORGANIZ ATION 09/26/2024 [facility] DATE CREATED AUTHOR AUTHOR'S ORGANIZ ATION 09/26/2024 [facility] Source Comments (unrecognize d section and content) In the event this informatio n is protected by the Federal Confidentiality of Alcohol and Drug Abuse Patient Records regulations: The Federal rules restrict any use of the information to criminally investigate or prosecute any alcohol or drug abuse patient.[facility] HospitalIn the event this information is protected by the Federal Confidentiality of Alcohol and Drug Abuse Patient Records regulations: The Federal rules restrict any use of the information to criminally investigate or prosecute any alcohol or drug abuse patient.[facility] HospitalIn the event this information is protected by the Federal Confidentiality of Alcohol and Drug Abuse Patient Records regulations: The Federal rules restrict any use of the information to criminally investigate or prosecute any alcohol or drug abuse patient.[facility] HospitalIn the event this information is protected by the Federal Confidentiality of Alcohol and Drug Abuse Patient Records regulations: The Federal rules restrict any use of the information to criminally investigate or prosecute any alcohol or drug abuse patient.[facility] Reason for Visit (unrecogniz ed section and content) Reason Comments Results Reason Comments Received Outside Medical Records Patient Care team informatio n (unrecognized section and content) Team Status: Active Member Role Status Dates Tara Ferrari , PR[employer]-C Primary Care Provider Active Team Status: Inactive Member Role Status Dates Kelsey Barnes APRN Attending Provider Active Start: March 20, 2024 End: March 20, 2024 Tara Ferrari , [employer] UP-C Primary Care Provider Active Start: March 20, 2024 End: March 20, 2024 Team Status: Inactive Member Role Status Dates Tara Ferrari , PR[employer] UP-C Primary Care Provider Active Start: March 25, 2024 End: March 25, 2024 Kelsey Barnes APRN Attending Provider Active Start: March 25, 2024 End: March 25, 2024 Team Status: Inactive Member Role Status Dates Tara Ferrari , PR[employer] UP-C Primary Care Provider Active Start: September 21, 2024 End: September 21, 2024 Holly Desir APRN Attending Provider Active S tart: September 21, 2024 End: September 21, 2024 Team Status: Active Member Role Status Dates Tara Ferrari , PR[employer] UP-C Primary Care Provider Active Start: September 21, 2024 Rosalva Lockhart DO Emergency Provider Active Start: September 21, 2024 Cyrus Ellison MD Admit Provider, Atte nding Provider Active Start: September 21, 2024 Goals (unrecognized section and content) Goals may be documented in a n alternate section FOR RECORDS PERTAINING TO PATIENTS WHO ARE OR HAVE BEEN ENROLLED IN A CHEMICAL DEPENDENCY/SUBSTANCEABUSE PROGRAM, SOME INFORMATION MAY BE OMITTED. This clinical summary was aggregated from multiple sources. Caution should be exercised in using it in the provision of clinical care. This summary normalizes information from multiple sources, and as a consequence, information in this document may materially change the coding, format and clinical context of patient data. In addition, data may be omitted in some cases. CLINICAL DECISIONS SHOULD BE BASED ON THE PRIMARY CLINICAL RECORDS. [employer] provides no warranty or guarantee of the accuracy or completeness of information in this document.
[2024-09-27 10:34] LABS: Anion Gap 9.1; Calcium 9.3 mg/dL (8.5-10.1); Carbon Dioxide 30.6 mmol/L (21.0-32.0); Chloride 102 mmol/L (98-107); Estimated GFR (African America >60 (>=60 mL/min/1.73m^2); Estimated GFR (Non-African Ame >60 (>=60 mL/min/1.73m^2); Glucose 95 mg/dL (74-106); Potassium 4.7 mmol/L (3.5-5.1); Sodium 137 mmol/L (136-145)
== END 2024-09-27 09:44 | disposition home or self-care (01) ==
LOC: LAB 09:44
PROVIDERS: PCP Nurse Practitioner; Visit Provider Internal Medicine
DX: E87.1 Hypo-osmolality and hyponatremia (principal)
CPT/HCPCS: 36415; 80048